=== PATIENT | female | born 1945 | race Asian ===

== ENCOUNTER 2020-10-09 10:33 | Outpatient (REF) | payer OTHER, MEDICAID, SELFPAY ==
[2020-10-09 14:47] LABS: Hematocrit 43.2 % (37-47); Hemoglobin 14.1 g/dl (12.0-16.0); Mean Corpuscular HGB Conc 32.6 g/dl (31.0-35.0); Mean Corpuscular Hemoglobin 28.5 pg (27.0-33.0); Mean Corpuscular Volume 87.4 fL (80-98); Mean Platelet Volume 11.8 fL (9.4-12.3); Platelet Count 279 X10*3/uL (160-400); Red Blood Count 4.94 X10*6/uL (4.20-5.50); Red Cell Distribution Width 14.2 % (11.0-16.0); White Blood Count 9.2 X10*3/uL (4.8-10.8)
[2020-10-09 15:05] LABS: Alanine Aminotransferase 66 U/L (0-31); Albumin Level 4.5 g/dL (3.5-5.0); Alkaline Phosphatase 91 U/L (39-117); Anion Gap 14 (12-20); Aspartate Amino Transferase 52 U/L (5-31); Bilirubin Direct 0.2 mg/dL (0.0-0.5); Bilirubin Total 0.4 mg/dL (0.0-1.0); Blood Urea Nitrogen 22 mg/dL (9-16); Carbon Dioxide 27 mmol/L (22-29); Chloride 103 mmol/L (96-108); Cholesterol 291 mg/dL; Estimated Glomerular Filt Rate 50; Glucose Random 115 mg/dL (60-115); HDL Cholesterol 47 mg/dL; LDL Cholesterol Calculated 206 mg/dl; Potassium 5.3 mmol/L (3.3-5.1); Sodium 139 mmol/L (135-145); Triglycerides 191 mg/dL
[2020-10-09 15:29] LABS: Thyroid Stimulating Hormone 2.13 uIU/mL (0.32-4.0)
[2020-10-12 04:39] LABS: Folate > 20.0 ng/mL (> or = 4.0); Vitamin B12 1653 pg/mL (200-900)
[2020-10-13 11:46] LABS: Vitamin D 25-OH, D2 <4 ng/mL; Vitamin D 25-OH, D3 46 ng/mL; Vitamin D 25-OH, Total 46 ng/mL (30-100)
== END 2020-10-09 10:34 | disposition home or self-care (01) ==
LOC: HO.10HDL 10:33
PROVIDERS: Visit Provider Internal Medicine
DX: I10 Essential (primary) hypertension (principal)
CPT/HCPCS: 36415; 80048; 80061; 80076; 82306; 82607; 82746; 84443; 85027

== ENCOUNTER 2020-11-26 15:40 | Outpatient (REF) | payer OTHER, MEDICAID, SELFPAY | END 2020-11-26 15:41 | disposition home or self-care (01) | LOC: HO.LAB 15:40 | PROVIDERS: Visit Provider Nurse Practitioner Family | DX: R30.0 Dysuria (principal) | CPT/HCPCS: 87086 ==

== ENCOUNTER → 2020-12-27 10:41 | Outpatient (BNVA) | payer OTHER, MEDICAID, SELFPAY | PROVIDERS: PCP Internal Medicine; Visit Provider Urology | DX: R39.12 Poor urinary stream (principal); R33.9 Retention of urine, unspecified | CPT/HCPCS: 51798; 81002; 99202 ==

== ENCOUNTER → 2021-07-05 10:50 | Outpatient (BNVA) | payer OTHER, MEDICAID, SELFPAY | PROVIDERS: PCP Internal Medicine; Visit Provider Urology | DX: R39.12 Poor urinary stream (principal); R33.9 Retention of urine, unspecified | CPT/HCPCS: 51798 ==

== ENCOUNTER 2021-08-09 11:20 | Inpatient (IN) | payer OTHER, MEDICAID, SELFPAY ==
[2021-08-09] VITALS (13 sets, daily range): BP systolic 135–234; BP diastolic 64–109; PULSE 66–98; RESP 18–29; TEMP 36.8–37.6; O2SAT 92–96; BMI 21.2
--- NOTE | ~2021-08-09 | XR_ITS ---
EXAMINATION: XR CHEST CLINICAL INFORMATION: Hypoxia. Covid positive. COMPARISON: Chest x-rays of 02/04/2013. TECHNIQUE: Frontal view of the chest was obtained. FINDINGS: Multiple cardiac leads and wires overlie the chest. The cardiomediastinal silhouette is likely within normal limits for technique. No abnormal tracheal deviation. The lungs are mildly hypoexpanded. There are faint hazy opacities in the mid and lower lung zone. No dense consolidation. No significant pleural effusions. No evidence of pneumothorax or overt pulmonary edema. Mild degenerative changes in the spine. Visualized upper abdomen is unremarkable. XR/XR chest 1V IMPRESSION: Faint hazy opacities in the bilateral mid and lower lung zones, concerning for infectious infiltrates in this patient with history of positive Covid test.
--- NOTE | 2021-08-09 11:24 | ED.URI ---
HPI - URI/Sore Throat General Chief Complaint: General Medical Stated Complaint: covid + Time Seen by Provider: 08/09/21 11:24 Source: family (daughter) and EMS Mode of arrival: EMS Limitations: language barrier History of Present Illness HPI Narrative: 75-year-old non Slovak-speaking female (speaks Laotian) presents via EMS from urgent care for dehydration and hypoxia. Patient tested positive for COVID at home 2 days ago and has had diarrhea and poor oral intake. Patient arrives satting 92% on 2 L of oxygen, temperature 99.3?, BP 148/68 She has a past medical history of hypertension, GERD, depression. I called home and reached her son-in-law who lives with her. Son-in-law is COVID positive and has been quarantine at home. He says that for the past few days patient has been coughing with poor p.o. intake, she has had diarrhea for which he gave Imodium. States she has had fevers, body aches, and has been very tired. States that she has had 2 vaccinations but she is not boosted yet During my interview with her with japanese interpreter, patient states that she has had symptoms for 10 days, she feels very tired, she is so tired she can hardly talk. She has been coughing, with fevers and body aches. She endorses two COVID vaccinations but no booster yet. She feels short of breath. She is nauseous. No chest pain. Related Data Home Medications Medication Instructions Recorded Confirmed losartan 50 mg tablet 50 mg PO DAILY 10/08/20 01/26/21 Previous Rx's Medication Instructions Recorded pantoprazole 40 mg tablet,delayed 40 mg PO DAILY #90 tab 12/14/20 release furosemide 20 mg tablet 20 mg PO DAILY #90 tab 03/28/21 metoprolol succinate 50 mg 50 mg PO DAILY #90 tab 03/29/21 tablet,extended release 24 hr fluoxetine 10 mg capsule 10 mg PO DAILY #90 cap 04/01/21 atorvastatin 40 mg tablet 40 mg PO DAILY #90 tab 04/09/21 gabapentin 300 mg capsule 300 mg PO TID #270 cap 04/09/21 terazosin 1 mg capsule 1 mg PO BEDTIME 30 Days #30 cap 08/01/21 Allergies Allergy/AdvReac Type Severity Reaction Status Date / Time aspirin Allergy Intermediate Nausea and Verified 07/29/21 14:39 Vomiting Review of Systems Constitutional: Constitutional: Reports body ache(s), Reports chills, Reports fatigue, Reports fever(s), Reports headache(s), Reports increased appetite, Reports lethargy and Reports malaise Eyes: Eyes: Denies blurry vision ENT: Denies otalgia, Reports headache(s), Denies nasal discharge, Denies neck pain, Denies post nasal drip and Denies sore throat Cardiovascular: Cardiovascular: Denies chest pain, Denies chest pain at rest, Denies palpitations, Reports dyspnea and Reports dyspnea on exertion Respiratory: Respiratory: Reports cough, Reports dyspnea, Reports dyspnea on exertion, Denies stridor and Denies wheezing Gastrointestinal: Gastrointestinal: Denies abdominal pain, Denies hematochezia, Denies coffee ground emesis, Reports diarrhea, Reports nausea, Denies vomiting and Denies hematemesis Genitourinary: Genitourinary: Reports no additional female genitourinary complaints Musculoskeletal: Musculoskeletal: Reports myalgias, Denies neck pain, Denies numbness and Denies tingling Integumentary/Breasts: Skin/Breast: Denies erythema and Denies rash Neurologic: Reports headache(s), Denies numbness and Denies tingling Endocrine: Endocrine: Reports fatigue and Denies palpitations Allergic/Immunologic: Allergic/Immunologic: Denies wheezing PMFSH Past Medical History Medical History Essential (primary) hypertension Generalized anxiety disorder GERD (gastroesophageal reflux disease) Surgical History History of appendectomy History of cataract surgery Family History Family History Mother No problems noted. Father No problems noted. Social History Social History Alcohol intake: never Patient Tobacco Use Status: Never used Tobacco Use of substances other than those prescribed or required for medical reasons: No Advance Directives: No Advance Directives Information Provided: No Physical Exam Vital Signs: Vital Signs: Last Vital Signs Temp 99.1 F 08/09/21 11:31 Pulse 82 08/09/21 17:20 Resp 22 H 08/09/21 17:20 BP 135/85 08/09/21 17:20 Pulse Ox 94 08/09/21 17:20 BMI result Body Mass Index 21.2 Const: General: cooperative, alert and awake Nutritional Appearance: average body habitus Orientation/consciousness: patient oriented x3 Limitations: language barrier HENMT: Head: Yes normal to inspection, Yes normocephalic and Yes atraumatic Ears: hearing grossly normal bilaterally and external ears normal General nose exam: Normal external nose present Face and sinus: Yes normal facial exam and Yes sinuses nontender Mouth: mucous membranes dry Teeth and gingiva: dentition normal Throat: Yes posterior oropharynx normal Eyes: Conjunctivae: conjunctivae normal Pupils: Equal, round and reactive pupils present EOM: EOMs intact bilaterally Neck: Neck: Yes full ROM, Yes no lymphadenopathy and Yes supple Resp: Effort & Inspection: able to speak in complete sentences, no pursed lip breathing, tachypneic, no tripod positioning and symmetric chest movement Auscultation: clear to auscultation bilaterally, no crackles, no rales, no rhonchi and no wheezes Cardio: Rate: regular rate Rhythm: regular rhythm Heart sounds: S1 normal heart sound present and S2 normal heart sound present GI: Inspection: Yes normal to inspection Palpation (GI): Soft to palpation, nontender, no guarding and not rigid Percussion: Yes normal to percussion Auscultation: normal bowel sounds Skin: Other: Patient has pallor, pale, and pale conjunctiva Neuro: General: patient oriented x3, tone normal and moves all extremities Cranial nerves: Yes Equal, round and reactive pupils present Extrem: General: Yes normal to inspection and Yes full ROM Psych: Appearance: grossly normal Affect: normal affect Attitude: cooperative Thought process: Normal thought process present Course Course Course Narrative: 75-year-old female with a past medical history of hypertension, GERD, and anxiety, presents from home for 10 days of COVID like symptoms and a positive COVID test 2 days ago. Her son-in-law whom she lives with is COVID positive at home. On exam, patient is satting 88 % to 89% on room air, she is hypertensive with a systolic in the 220s. Not tachycardic. She is tachypneic,, when we take her off oxygen her respiration rate goes up into the low 30s. Will get basic labs, chest x-ray, lactic, blood culture, EKG, troponin, and COVID labs such as LDH, ferritin, D-dimer. Giving dexamethasone, fluids, Zofran. Patient is maintaining oxygen saturation above 93% on 2 L of oxygen Systolic BP 220's, will re-check after tylenol and fluids. Reevaluation(s) Reevaluation #1: Patient signs and symptoms of sepsis is due to Covid; gave 1 liter fluids; did not want to fluid overload, d/t concern for ARDs. Discussed this with Dr Wilcox. Lactic 2.2, white blood cell count 15.7, VBG shows only mildly elevated bicarb of 29, pH 7.4. LDH is elevated at 287, Ferritin elevated at 2698, D-dimer normal 184. Troponin 73.9, EKG shows no acute ischemia. Initially patient's blood pressure was 234/109, now after 1 L fluids and Tylenol and Zofran blood pressure is 174/74 Will get 3 hour troponin Reevaluation #2: CXR shows: XR/XR chest 1V IMPRESSION: Faint hazy opacities in the bilateral mid and lower lung zones, concerning for infectious infiltrates in this patient with history of positive Covid test. Repeat lactic is now 1.6, down from 2.2. Troponin at the 3 hour adamaris is 98.9. This does not represent a greater than 50% delta change from 1st troponin which was 73.9. COntacted hospitalist for admission 16:50 MDM - URI/Sore Throat Lab Data Result diagrams: 08/09/21 12:10 08/09/21 12:10 Labs: Lab Results 08/09/21 08/09/21 08/09/21 Range/Units 12:09 12:10 12:10 WBC 15.7 H (4.8-10.8) X10*3/uL RBC 5.10 (4.20-5.50) X10*6/uL Hgb 14.5 (12.0-16.0) g/dl Hct 43.2 (37.0-47.0) % MCV 84.7 (80.0-98.0) fL MCH 28.4 (27.0-33.0) pg MCHC 33.6 (31.0-35.0) g/dl RDW 13.6 (11.0-16.0) % Plt Count 170 (160-400) X10*3/uL MPV 11.4 (9.4-12.3) fL Immature Gran % (Auto) 0.6 H (0.0-0.4) % Neut % (Auto) 80.7 H (45-73) % Lymph % (Auto) 12.9 L (20-40) % [place] % (Auto) 5.7 (2-11) % Eos % (Auto) 0.0 (0-4) % Baso % (Auto) 0.1 (0-2) % Lymph # (Auto) 2.0 (1.2-4.9) X10*3/uL [place] # (Auto) 0.9 (0.1-1.2) X10*3/uL Eos # (Auto) 0.0 (0.0-0.4) X10*3/uL Baso # (Auto) 0.0 (0.0-0.2) X10*3/uL Abs Immat Gran (auto) 0.09 H (0.00-0.03) X10*3/uL Absolute Neuts (auto) 12.7 H (2.0-8.3) x10*3/uL Absolute Nucleated RBC 0.000 (0.0-0.012) X10*3/uL Nucleated RBC % (auto) 0.0 (0.0-0.2) /100WBC D-Dimer High Sensitivty NG/ML VBG pH (7.32-7.43) VBG pCO2 mmHg VBG pO2 mmHg VBG HCO3 (22-26) mmol/L VBG O2 Saturation % VBG Base Excess mmol/L Sodium (135-145) mmol/L Potassium (3.3-5.1) mmol/L Chloride (96-108) mmol/L Carbon Dioxide (22-29) mmol/L Anion Gap (12-20) BUN (9-16) mg/dL Creatinine (0.5-1.4) mg/dL Estim Creat Clear Calc Estimated GFR Random Glucose (60-115) mg/dL Lactic Acid 2.2 H* (0.5-2.0) mmol/L Lactic Acid F/U @ 2Hr (0.5-2.0) mmol/L Calcium (8.4-10.2) mg/dL Magnesium (1.6-2.6) mg/dL Ferritin (10-250) ng/mL Total Bilirubin (0.0-1.0) mg/dL AST (5-31) U/L ALT (0-31) U/L Alkaline Phosphatase (39-117) U/L Lactate Dehydrogenase (122-220) U/L Troponin I High Sens 73.9 H* (<3.5-17.0) ng/L Total Protein (6.5-8.0) g/dL Albumin (3.5-5.0) g/dL Influenza Type A (PCR) (Negative) Influenza Type B (PCR) (Negative) RSV RNA Qual (PCR) (Negative) SARS-CoV-2 RNA (RT-PCR) (Negative) 08/09/21 08/09/21 08/09/21 Range/Units 12:10 12:15 12:41 WBC (4.8-10.8) X10*3/uL RBC (4.20-5.50) X10*6/uL Hgb (12.0-16.0) g/dl Hct (37.0-47.0) % MCV (80.0-98.0) fL MCH (27.0-33.0) pg MCHC (31.0-35.0) g/dl RDW (11.0-16.0) % Plt Count (160-400) X10*3/uL MPV (9.4-12.3) fL Immature Gran % (Auto) (0.0-0.4) % Neut % (Auto) (45-73) % Lymph % (Auto) (20-40) % [place] % (Auto) (2-11) % Eos % (Auto) (0-4) % Baso % (Auto) (0-2) % Lymph # (Auto) (1.2-4.9) X10*3/uL [place] # (Auto) (0.1-1.2) X10*3/uL Eos # (Auto) (0.0-0.4) X10*3/uL Baso # (Auto) (0.0-0.2) X10*3/uL Abs Immat Gran (auto) (0.00-0.03) X10*3/uL Absolute Neuts (auto) (2.0-8.3) x10*3/uL Absolute Nucleated RBC (0.0-0.012) X10*3/uL Nucleated RBC % (auto) (0.0-0.2) /100WBC D-Dimer High Sensitivty NG/ML VBG pH 7.40 (7.32-7.43) VBG pCO2 47 mmHg VBG pO2 31 mmHg VBG HCO3 29 H (22-26) mmol/L VBG O2 Saturation 44.0 % VBG Base Excess 3.7 mmol/L Sodium 137 (135-145) mmol/L Potassium 4.0 D (3.3-5.1) mmol/L Chloride 101 (96-108) mmol/L Carbon Dioxide 26 (22-29) mmol/L Anion Gap 14 (12-20) BUN 6 L (9-16) mg/dL Creatinine 0.82 (0.5-1.4) mg/dL Estim Creat Clear Calc 47.5 Estimated GFR > 60 Random Glucose 162 H (60-115) mg/dL Lactic Acid (0.5-2.0) mmol/L Lactic Acid F/U @ 2Hr (0.5-2.0) mmol/L Calcium 8.9 D (8.4-10.2) mg/dL Magnesium 1.9 (1.6-2.6) mg/dL Ferritin 2698 H (10-250) ng/mL Total Bilirubin 1.0 (0.0-1.0) mg/dL AST 31 D (5-31) U/L ALT 34 H (0-31) U/L Alkaline Phosphatase 92 (39-117) U/L Lactate Dehydrogenase 287 H (122-220) U/L Troponin I High Sens (<3.5-17.0) ng/L Total Protein 7.6 (6.5-8.0) g/dL Albumin 4.0 (3.5-5.0) g/dL Influenza Type A (PCR) NEGATIVE (Negative) Influenza Type B (PCR) NEGATIVE (Negative) RSV RNA Qual (PCR) NEGATIVE (Negative) SARS-CoV-2 RNA (RT-PCR) POSITIVE A (Negative) 12/24/21 12/24/21 12/24/21 Range/Units 12:41 15:45 15:45 WBC (4.8-10.8) X10*3/uL RBC (4.20-5.50) X10*6/uL Hgb (12.0-16.0) g/dl Hct (37.0-47.0) % MCV (80.0-98.0) fL MCH (27.0-33.0) pg MCHC (31.0-35.0) g/dl RDW (11.0-16.0) % Plt Count (160-400) X10*3/uL MPV (9.4-12.3) fL Immature Gran % (Auto) (0.0-0.4) % Neut % (Auto) (45-73) % Lymph % (Auto) (20-40) % [place] % (Auto) (2-11) % Eos % (Auto) (0-4) % Baso % (Auto) (0-2) % Lymph # (Auto) (1.2-4.9) X10*3/uL [place] # (Auto) (0.1-1.2) X10*3/uL Eos # (Auto) (0.0-0.4) X10*3/uL Baso # (Auto) (0.0-0.2) X10*3/uL Abs Immat Gran (auto) (0.00-0.03) X10*3/uL Absolute Neuts (auto) (2.0-8.3) x10*3/uL Absolute Nucleated RBC (0.0-0.012) X10*3/uL Nucleated RBC % (auto) (0.0-0.2) /100WBC D-Dimer High Sensitivty 184 NG/ML VBG pH (7.32-7.43) VBG pCO2 mmHg VBG pO2 mmHg VBG HCO3 (22-26) mmol/L VBG O2 Saturation % VBG Base Excess mmol/L Sodium (135-145) mmol/L Potassium (3.3-5.1) mmol/L Chloride (96-108) mmol/L Carbon Dioxide (22-29) mmol/L Anion Gap (12-20) BUN (9-16) mg/dL Creatinine (0.5-1.4) mg/dL Estim Creat Clear Calc Estimated GFR Random Glucose (60-115) mg/dL Lactic Acid (0.5-2.0) mmol/L Lactic Acid F/U @ 2Hr 1.6 (0.5-2.0) mmol/L Calcium (8.4-10.2) mg/dL Magnesium (1.6-2.6) mg/dL Ferritin (10-250) ng/mL Total Bilirubin (0.0-1.0) mg/dL AST (5-31) U/L ALT (0-31) U/L Alkaline Phosphatase (39-117) U/L Lactate Dehydrogenase (122-220) U/L Troponin I High Sens 98.9 H* (<3.5-17.0) ng/L Total Protein (6.5-8.0) g/dL Albumin (3.5-5.0) g/dL Influenza Type A (PCR) (Negative) Influenza Type B (PCR) (Negative) RSV RNA Qual (PCR) (Negative) SARS-CoV-2 RNA (RT-PCR) (Negative) ECG Data Interpretation: Sinus at a rate of 82, CT 158, QRS 68, QTC 495, left-sided stent C mildly, no ST elevations or and T-wave abnormalities Discharge Plan Discharge Clinical Impression: COVID-19, Hypoxia Patient Disposition: Admitted As Inpatient
--- NOTE | 2021-08-09 11:42 | ECG_ITS ---
Test Reason : SOB Blood Pressure : / mmHG Vent. Rate : 082 BPM Atrial Rate : 082 BPM P-R Int : 158 ms QRS Dur : 068 ms QT Int : 424 ms P-R-T Axes : 042 -51 066 degrees QTc Int : 495 ms Normal sinus rhythm Possible Left atrial enlargement Left ventricular hypertrophy with repolarization abnormality ( R in aVL , [place] product ) Prolonged QT Abnormal ECG No previous ECGs available Referred By: Janna Guerrero Electronically Signed By:DERECK LAGUNAS
[2021-08-09] MEDS: Acetaminophen 325 MG TABLET 975 MG PO (11:53)
[2021-08-09] MEDS: 0.9 % Sodium Chloride 1,000 ML 999 ML IV (11:53)
[2021-08-09] MEDS: dexAMETHasone 6 MG TABLET PO (12:18)
[2021-08-09] MEDS: ondansetron HCL 4 MG/2 ML VIAL IVPUSH (12:18)
[2021-08-09 12:19] LABS: MANUAL DIFF FLAG NO
[2021-08-09 12:21] LABS: Basophils Percent Auto 0.1 % (0-2); Hematocrit 43.2 % (37.0-47.0); Hemoglobin 14.5 g/dl (12.0-16.0); Imm Gran Abs Auto 0.09 X10*3/uL (0.00-0.03); Imm Gran Pct Auto 0.6 % (0.0-0.4); Lymphocytes Percent Auto 12.9 % (20-40); Mean Corpuscular HGB Conc 33.6 g/dl (31.0-35.0); Mean Corpuscular Hemoglobin 28.4 pg (27.0-33.0); Mean Corpuscular Volume 84.7 fL (80.0-98.0); Mean Platelet Volume 11.4 fL (9.4-12.3); Monocytes Absolute Auto 0.9 X10*3/uL (0.1-1.2); Monocytes Percent Auto 5.7 % (2-11); Neutrophils Absolute Auto 12.7 x10*3/uL (2.0-8.3); Neutrophils Percent Auto 80.7 % (45-73); Platelet Count 170 X10*3/uL (160-400); Red Cell Distribution Width 13.6 % (11.0-16.0); White Blood Count 15.7 X10*3/uL (4.8-10.8)
[2021-08-09 12:22] LABS: Venous Blood Gas Refer to POC result
[2021-08-09 12:22] LABS: VBG Base Excess 3.7 mmol/L; VBG HCO3 29 mmol/L (22-26); VBG pCO2 47 mmHg; VBG pO2 31 mmHg
[2021-08-09 12:44] LABS: Lactic Acid 2.2 mmol/L (0.5-2.0)
[2021-08-09 12:46] LABS: Alanine Aminotransferase 34 U/L (0-31); Alkaline Phosphatase 92 U/L (39-117); Anion Gap 14 (12-20); Aspartate Amino Transferase 31 U/L (5-31); Blood Urea Nitrogen 6 mg/dL (9-16); Calcium 8.9 mg/dL (8.4-10.2); Carbon Dioxide 26 mmol/L (22-29); Chloride 101 mmol/L (96-108); Creatinine Clr Calc Pharmacy 47.5; Estimated Glomerular Filt Rate > 60; Glucose Random 162 mg/dL (60-115); Magnesium 1.9 mg/dL (1.6-2.6); Sodium 137 mmol/L (135-145); Total Protein 7.6 g/dL (6.5-8.0)
[2021-08-09 12:52] LABS: Lactate Dehydrogenase 287 U/L (122-220)
[2021-08-09 12:54] LABS: Troponin-I High Sensitivity 73.9 ng/L (<3.5-17.0)
[2021-08-09 12:56] LABS: D Dimer High Sensitivity 184 NG/ML
[2021-08-09 13:24] LABS: Influenza A PCR NEGATIVE (Negative); Influenza B PCR NEGATIVE (Negative); Resp Syncy Virus RNA Qual PCR NEGATIVE (Negative); SARS COV2 PCR INHOUSE POSITIVE (Negative)
[2021-08-09 13:50] LABS: Ferritin 2698 ng/mL (10-250)
[2021-08-09 14:18] LABS: Reflex Lactate? Lactic Acid Added
--- NOTE | 2021-08-09 15:28 | PC.NURSE ---
pt is a vegetarian
[2021-08-09 16:07] LABS: ~Lactic Acid-LAB USE ONLY 1.6 mmol/L (0.5-2.0)
[2021-08-09 16:22] LABS: Troponin-I High Sensitivity 98.9 ng/L (<3.5-17.0)
--- NOTE | 2021-08-09 17:27 | P.HPHOSP_ITS ---
History of Present Illness Date of Service: 08/09/21 Chief Complaint: shortness of breath, decreased oral intake a 75 years old lady with PMH of HTN, HLD, GERD among others who (speaks Laotian) presented to the hospital for evaluation of generalized weakness and shortness of breath. The history was taken from the patient, family, ED provider. The patient has been complaining of symptoms for almost 10 days need he started as a common cold with body aches and fevers but she became very tired and was unable to eat much with decreased appetite and feeling of nausea. Yesterday she developed diarrhea and has been taking Imodium for it. Overall she feels she is very weak. admitted for further evaluation treatment. Review of Systems Review of Systems: No fever, chills but has generalized weakness No chest pain, palpitation increaseshortness of breath and reportingcoughing No abdominal pain, nausea or vomiting but has diarrhea No urinary symptoms No any rash or wounds PMFSH Medical History Essential (primary) hypertension Generalized anxiety disorder GERD (gastroesophageal reflux disease) Family History Mother No problems noted. Father No problems noted. Surgical History History of appendectomy History of cataract surgery Social History Alcohol intake: never Patient Tobacco Use Status: Never used Tobacco Use of substances other than those prescribed or required for medical reasons: No Advance Directives: No Advance Directives Information Provided: No Meds Allergies Allergy/AdvReac Type Severity Reaction Status Date / Time aspirin Allergy Intermediate Nausea and Verified 07/29/21 14:39 Vomiting Active Medications: Current Medications Acetaminophen (Acetaminophen 325 Mg Tablet) 650 mg PO Q6H PRN PRN Reason: Pain, Mild (Pain Scale 1-3) Enoxaparin Sodium (Enoxaparin Sodium 40 Mg/0.4 Ml Syringe) 40 mg SUBCUT Q24H ANTONY Ondansetron HCl (Ondansetron Hcl 4 Mg/2 Ml Vial) 4 mg IVPUSH Q8H PRN PRN Reason: Nausea and Vomiting Pharmacy Consult (Consult Rx Perform Med Rec) 1 each MISCELLANE ONCE PRN PRN Reason: Consult order Sodium Chloride (0.9 % Sodium Chloride Flush 3 Ml Syringe) 3 ml IVFLUSH QSHIFT [facility] Home Medications Medication Instructions Recorded Confirmed Last Taken Type losartan 50 mg tablet 50 mg PO DAILY 10/08/20 01/26/21 Unknown History Physical Exam Vital Signs and Narrative: Vital Signs: Last Vital Signs Temp 99.1 F 08/09/21 11:31 Pulse 82 08/09/21 17:20 Resp 22 H 08/09/21 17:20 BP 135/85 08/09/21 17:20 Pulse Ox 94 08/09/21 17:20 BMI result Body Mass Index 21.2 Const: Other: Constitutional : Alert, oriented, in mild respiratory distress Neck : Normal inspection, Supple Cardiovascular : RRR, S1 S2, no lower extremity edema Respiratory : chest wall moving bilaterally, mildly tachypneic, on oxygen supplement Gastrointestinal: soft, lax, Normal bowel sounds, Non tender Skin : Warm, Dry Neurological : Alert & oriented x3, No focal deficit Results Labs CBC and Chem 7: 08/09/21 12:10 08/09/21 12:10 Labs: Laboratory Results - last 24 hr 08/09/21 08/09/21 08/09/21 12:09 12:10 12:10 MCV 84.7 MCH 28.4 MCHC 33.6 RDW 13.6 Plt Count 170 MPV 11.4 Immature Gran % (Auto) 0.6 H Neut % (Auto) 80.7 H Lymph % (Auto) 12.9 L [place] % (Auto) 5.7 Eos % (Auto) 0.0 Baso % (Auto) 0.1 Lymph # (Auto) 2.0 [place] # (Auto) 0.9 Eos # (Auto) 0.0 Baso # (Auto) 0.0 Abs Immat Gran (auto) 0.09 H Absolute Neuts (auto) 12.7 H Absolute Nucleated RBC 0.000 Nucleated RBC % (auto) 0.0 D-Dimer High Sensitivty VBG pH VBG pCO2 VBG pO2 VBG HCO3 VBG O2 Saturation VBG Base Excess Anion Gap Estim Creat Clear Calc Estimated GFR Random Glucose Lactic Acid 2.2 H* Lactic Acid F/U @ 2Hr Calcium Magnesium Ferritin Total Bilirubin AST ALT Alkaline Phosphatase Lactate Dehydrogenase Troponin I High Sens 73.9 H* Total Protein Albumin Influenza Type A (PCR) Influenza Type B (PCR) RSV RNA Qual (PCR) SARS-CoV-2 RNA (RT-PCR) 08/09/21 08/09/21 08/09/21 12:10 12:15 12:41 MCV MCH MCHC RDW Plt Count MPV Immature Gran % (Auto) Neut % (Auto) Lymph % (Auto) [place] % (Auto) Eos % (Auto) Baso % (Auto) Lymph # (Auto) [place] # (Auto) Eos # (Auto) Baso # (Auto) Abs Immat Gran (auto) Absolute Neuts (auto) Absolute Nucleated RBC Nucleated RBC % (auto) D-Dimer High Sensitivty VBG pH 7.40 VBG pCO2 47 VBG pO2 31 VBG HCO3 29 H VBG O2 Saturation 44.0 VBG Base Excess 3.7 Anion Gap 14 Estim Creat Clear Calc 47.5 Estimated GFR > 60 Random Glucose 162 H Lactic Acid Lactic Acid F/U @ 2Hr Calcium 8.9 D Magnesium 1.9 Ferritin 2698 H Total Bilirubin 1.0 AST 31 D ALT 34 H Alkaline Phosphatase 92 Lactate Dehydrogenase 287 H Troponin I High Sens Total Protein 7.6 Albumin 4.0 Influenza Type A (PCR) NEGATIVE Influenza Type B (PCR) NEGATIVE RSV RNA Qual (PCR) NEGATIVE SARS-CoV-2 RNA (RT-PCR) POSITIVE A 08/09/21 08/09/21 08/09/21 12:41 15:45 15:45 MCV MCH MCHC RDW Plt Count MPV Immature Gran % (Auto) Neut % (Auto) Lymph % (Auto) [place] % (Auto) Eos % (Auto) Baso % (Auto) Lymph # (Auto) [place] # (Auto) Eos # (Auto) Baso # (Auto) Abs Immat Gran (auto) Absolute Neuts (auto) Absolute Nucleated RBC Nucleated RBC % (auto) D-Dimer High Sensitivty 184 VBG pH VBG pCO2 VBG pO2 VBG HCO3 VBG O2 Saturation VBG Base Excess Anion Gap Estim Creat Clear Calc Estimated GFR Random Glucose Lactic Acid Lactic Acid F/U @ 2Hr 1.6 Calcium Magnesium Ferritin Total Bilirubin AST ALT Alkaline Phosphatase Lactate Dehydrogenase Troponin I High Sens 98.9 H* Total Protein Albumin Influenza Type A (PCR) Influenza Type B (PCR) RSV RNA Qual (PCR) SARS-CoV-2 RNA (RT-PCR) Imaging Radiologist's Impressions: Impressions Chest X-Ray 08/09/21 12:53 IMPRESSION: Faint hazy opacities in the bilateral mid and lower lung zones, concerning for infectious infiltrates in this patient with history of positive Covid test. Assessment and Plan (1) COVID-19: Status: Acute (2) Dehydration: Status: Acute (3) Physical deconditioning: Status: Acute a 75 years old lady with PMH of HTN, HLD, GERD among others who (speaks Laotian) presented to the hospital for evaluation of generalized weakness and shortness of breath. COVID-19 infection Symptoms for almost 10 days Start dexamethasone daily Oxygen supplement as required Wean down O2 as tolerated Dehydration, decreased p.o. intake To give gentle hydration overnight Encourage p.o. intake and add Ensure Physical deconditioning To do physical therapy and encourage movement Diarrhea Stool testing Imodium Continue rest of her home DVT PPx Lovenox Quality Stroke Does the patient have a stroke diagnosis?: No VTE Prior VTE?: No VTE Risk Level:: Medical - moderate - high VTE Device Contraindication: Treatment Not Indicated VTE Drug Contraindication: N/A - Med Ordered
[2021-08-09] MEDS: Enoxaparin Sodium 40 MG/0.4 ML SYRINGE SUBCUT (21:10)
--- NOTE | 2021-08-09 21:16 | PC.NURSE ---
This RN at bedside with movers via [employer]. Pt alert, oriented, denies pain/discomfort. Pt assisted to bedside commode, urinated, sample to be sent for processing. Pt BP 219/106, TT anna marie who ordered PRN hydralazine. This rn notified MD of repeat trop increase from initial, no additional orders at this time. Per MD, hold IV fluids.
[2021-08-09 21:40] LABS: Appearance Urine CLEAR; Color Urine YELLOW; Glucose Urine UA NEG (NEG); Leukocyte Esterase Urine NEG (NEG); Nitrite Urine NEG (NEG); Urine Blood NEG (NEG); Urine Ketones NEG (NEG); Urine Protein TRACE MG/DL (NEG-TRACE)
[2021-08-09] MEDS: hydrALAZINE HCl 20 MG/ML VIAL 5 MG IVPUSH (21:47)
[2021-08-09 22:10] LABS: Bacteria Urine 1+ /LPF; Squamous Epithelial Cell Urine 1+ /LPF
--- NOTE | 2021-08-09 22:15 | PC.NURSE ---
anna marie aware of repeat bp 217/105 30 min after hydralazine. awaiting additional orders
[2021-08-09] MEDS: amLODIPine Besylate 5 MG TABLET PO (22:37)
--- NOTE | 2021-08-09 22:57 | PC.NURSE ---
Med rec completed with family's help over phone. aware of its completion Daughter Josh [phone]
[2021-08-10] VITALS (8 sets, daily range): BP systolic 113–189; BP diastolic 48–86; PULSE 79–105; RESP 16–28; TEMP 36.7–37.2; O2SAT 94–98
--- NOTE | 2021-08-10 02:10 | PC.NURSE ---
Pt asleep on stretcher in NAD, breathing with ease on supplemental O2 NC. Pt does not appear in any distress/pain/discomfort. Stretcher in lowest locked position, rails raised, call maldonado within reach.
--- NOTE | 2021-08-10 06:20 | PC.NURSE ---
Pt asleep on stretcher in NAD, breathing with ease on supplemental O2 NC. Pt without nonverbal indicators of pain/discomfort. Pt stretcher in lowest locked position, rails raised, call maldonado within reach.
[2021-08-10] MEDS: dexAMETHasone sod phosphate 4 MG/ML VIAL 6 MG IVPUSH (08:57)
[2021-08-10] MEDS: FLUoxetine HCl 10 MG CAPSULE PO (08:58)
[2021-08-10] MEDS: lisinopriL 10 MG TABLET PO (08:58)
[2021-08-10] MEDS: Omeprazole 40 MG CAPSULE.DR PO (08:58)
[2021-08-10] MEDS: Metoprolol Succinate ER 50 MG TAB.ER.24H PO (08:58)
[2021-08-10] MEDS: Furosemide 20 MG TABLET PO (08:59)
[2021-08-10] MEDS: 0.9 % Sodium Chloride Flush 3 ML SYRINGE IVFLUSH ×2 (08:59→15:28)
--- NOTE | 2021-08-10 09:02 | PC.NURSE ---
patient a&o, personnel monitor nsr 80s-90s, vss, pt took meds whole with water, vss, no c/o pain or discomfort, will continue to monitor.
[2021-08-10 09:04] LABS: Hematocrit 40.6 % (37.0-47.0); Hemoglobin 13.4 g/dl (12.0-16.0); Mean Corpuscular Hemoglobin 27.9 pg (27.0-33.0); Mean Corpuscular Volume 84.4 fL (80.0-98.0); Mean Platelet Volume 11.7 fL (9.4-12.3); Platelet Count 202 X10*3/uL (160-400); Red Blood Count 4.81 X10*6/uL (4.20-5.50); Red Cell Distribution Width 13.8 % (11.0-16.0); White Blood Count 9.1 X10*3/uL (4.8-10.8)
[2021-08-10] MEDS: Gabapentin 300 MG CAPSULE PO ×3 (09:09→21:38)
[2021-08-10 09:21] LABS: Anion Gap 12 (12-20); Blood Urea Nitrogen 9 mg/dL (9-16); Calcium 8.4 mg/dL (8.4-10.2); Carbon Dioxide 23 mmol/L (22-29); Chloride 106 mmol/L (96-108); Creatinine Clr Calc Pharmacy 48.7; Estimated Glomerular Filt Rate > 60; Glucose Random 136 mg/dL (60-115); Potassium 3.3 mmol/L (3.3-5.1); Sodium 138 mmol/L (135-145)
--- NOTE | 2021-08-10 11:31 | HO.PM.IMPN ---
Subjective Subjective Date of Service: 08/10/21 Interval History: the patient was seen and evaluated this morning Laying in bed, feels little bit better today Still requiring oxygen supplement No reported other overnight events. Review of Systems No fever, chills but has generalized weakness No chest pain, palpitation increase shortness of breath and coughing No abdominal pain, nausea or vomiting but has diarrhea No urinary symptoms No any rash or wounds Physical Exam Vital Signs: Vital Signs: Last Vital Signs Temp 98.9 F 08/10/21 08:09 Pulse 89 08/10/21 08:58 Resp 25 H 08/10/21 08:09 BP 153/64 H 08/10/21 08:58 Pulse Ox 94 08/10/21 08:09 BMI result Body Mass Index 21.2 Const: Other: Constitutional : Alert, oriented, in mild respiratory distress Neck : Normal inspection, Supple Cardiovascular : RRR, S1 S2, no lower extremity edema Respiratory : chest wall moving bilaterally, mildly tachypneic, on oxygen supplement Gastrointestinal: soft, lax, Normal bowel sounds, Non tender Skin : Warm, Dry Neurological : Alert & oriented x3, No focal deficit Objective Data Active Medications Acetaminophen (Acetaminophen 325 Mg Tablet) 650 mg PO Q6H PRN PRN Reason: Pain, Mild (Pain Scale 1-3) Atorvastatin Calcium (Atorvastatin Calcium 40 Mg Tablet) 40 mg PO BEDTIME [facility] Dexamethasone Sodium Phosphate (Dexamethasone Sod Phosphate 4 Mg/Ml Vial) 6 mg IVPUSH DAILY [facility] Last Admin: 08/10/21 08:57 Dose: 6 mg Documented by: MAREK Enoxaparin Sodium (Enoxaparin Sodium 40 Mg/0.4 Ml Syringe) 40 mg SUBCUT Q24H [facility] Last Admin: 08/09/21 21:10 Dose: 40 mg Documented by: SAHRA Fluoxetine HCl (Fluoxetine Hcl 10 Mg Capsule) 10 mg PO DAILY [facility] Last Admin: 08/10/21 08:58 Dose: 10 mg Documented by: MAREK Furosemide (Furosemide 20 Mg Tablet) 20 mg PO DAILY [facility]; Protocol Last Admin: 08/10/21 08:59 Dose: 20 mg Documented by: MAREK Gabapentin (Gabapentin 300 Mg Capsule) 300 mg PO TID [facility] Last Admin: 08/10/21 09:09 Dose: 300 mg Documented by: MAREK Hydralazine HCl (Hydralazine Hcl 20 Mg/Ml Vial) 5 mg IVPUSH Q4H PRN; Protocol PRN Reason: BP>180/90 Last Admin: 08/09/21 21:47 Dose: 5 mg Documented by: SAHRA Lisinopril (Lisinopril 10 Mg Tablet) 10 mg PO DAILY [facility]; Protocol Last Admin: 08/10/21 08:58 Dose: 10 mg Documented by: MAREK Loperamide HCl (Loperamide Hcl 2 Mg Capsule) 2 mg PO Q4H PRN PRN Reason: Diarrhea Metoprolol Succinate (Metoprolol Succinate Er 50 Mg Tab.Er.24h) 50 mg PO DAILY [facility]; Protocol Last Admin: 08/10/21 08:58 Dose: 50 mg Documented by: MAREK Omeprazole (Omeprazole 40 Mg Capsule.Dr) 40 mg PO DAILY@0630 [facility] Last Admin: 08/10/21 08:58 Dose: 40 mg Documented by: MAREK Ondansetron HCl (Ondansetron Hcl 4 Mg/2 Ml Vial) 4 mg IVPUSH Q8H PRN PRN Reason: Nausea and Vomiting Sodium Chloride (0.9 % Sodium Chloride Flush 3 Ml Syringe) 3 ml IVFLUSH QSHIFT [facility] Last Admin: 08/10/21 08:59 Dose: 3 ml Documented by: MAREK Labs CBC & Chem 7: 08/10/21 08:52 08/10/21 08:52 Labs: Laboratory Results - last 24 hr 08/09/21 08/09/21 08/09/21 12:09 12:10 12:10 MCV 84.7 MCH 28.4 MCHC 33.6 RDW 13.6 Plt Count 170 MPV 11.4 Immature Gran % (Auto) 0.6 H Neut % (Auto) 80.7 H Lymph % (Auto) 12.9 L Mayes % (Auto) 5.7 Eos % (Auto) 0.0 Baso % (Auto) 0.1 Lymph # (Auto) 2.0 Mayes # (Auto) 0.9 Eos # (Auto) 0.0 Baso # (Auto) 0.0 Abs Immat Gran (auto) 0.09 H Absolute Neuts (auto) 12.7 H Absolute Nucleated RBC 0.000 Nucleated RBC % (auto) 0.0 D-Dimer High Sensitivty VBG pH VBG pCO2 VBG pO2 VBG HCO3 VBG O2 Saturation VBG Base Excess Anion Gap Estim Creat Clear Calc Estimated GFR Random Glucose Lactic Acid 2.2 H* Lactic Acid F/U @ 2Hr Calcium Magnesium Ferritin Total Bilirubin AST ALT Alkaline Phosphatase Lactate Dehydrogenase Troponin I High Sens 73.9 H* Total Protein Albumin Urine Color Urine Appearance Urine pH Ur Specific [place] Urine Protein Urine Glucose (UA) Urine Ketones Urine Blood Urine Nitrite Ur Leukocyte Esterase Urine RBC Urine WBC Ur Squamous Epith Cells Urine Bacteria Influenza Type A (PCR) Influenza Type B (PCR) RSV RNA Qual (PCR) SARS-CoV-2 RNA (RT-PCR) 08/09/21 08/09/21 08/09/21 12:10 12:15 12:41 MCV MCH MCHC RDW Plt Count MPV Immature Gran % (Auto) Neut % (Auto) Lymph % (Auto) Mayes % (Auto) Eos % (Auto) Baso % (Auto) Lymph # (Auto) Mayes # (Auto) Eos # (Auto) Baso # (Auto) Abs Immat Gran (auto) Absolute Neuts (auto) Absolute Nucleated RBC Nucleated RBC % (auto) D-Dimer High Sensitivty VBG pH 7.40 VBG pCO2 47 VBG pO2 31 VBG HCO3 29 H VBG O2 Saturation 44.0 VBG Base Excess 3.7 Anion Gap 14 Estim Creat Clear Calc 47.5 Estimated GFR > 60 Random Glucose 162 H Lactic Acid Lactic Acid F/U @ 2Hr Calcium 8.9 D Magnesium 1.9 Ferritin 2698 H Total Bilirubin 1.0 AST 31 D ALT 34 H Alkaline Phosphatase 92 Lactate Dehydrogenase 287 H Troponin I High Sens Total Protein 7.6 Albumin 4.0 Urine Color Urine Appearance Urine pH Ur Specific [place] Urine Protein Urine Glucose (UA) Urine Ketones Urine Blood Urine Nitrite Ur Leukocyte Esterase Urine RBC Urine WBC Ur Squamous Epith Cells Urine Bacteria Influenza Type A (PCR) NEGATIVE Influenza Type B (PCR) NEGATIVE RSV RNA Qual (PCR) NEGATIVE SARS-CoV-2 RNA (RT-PCR) POSITIVE A 08/09/21 08/09/21 08/09/21 12:41 15:45 15:45 MCV MCH MCHC RDW Plt Count MPV Immature Gran % (Auto) Neut % (Auto) Lymph % (Auto) Mayes % (Auto) Eos % (Auto) Baso % (Auto) Lymph # (Auto) Mayes # (Auto) Eos # (Auto) Baso # (Auto) Abs Immat Gran (auto) Absolute Neuts (auto) Absolute Nucleated RBC Nucleated RBC % (auto) D-Dimer High Sensitivty 184 VBG pH VBG pCO2 VBG pO2 VBG HCO3 VBG O2 Saturation VBG Base Excess Anion Gap Estim Creat Clear Calc Estimated GFR Random Glucose Lactic Acid Lactic Acid F/U @ 2Hr 1.6 Calcium Magnesium Ferritin Total Bilirubin AST ALT Alkaline Phosphatase Lactate Dehydrogenase Troponin I High Sens 98.9 H* Total Protein Albumin Urine Color Urine Appearance Urine pH Ur Specific [place] Urine Protein Urine Glucose (UA) Urine Ketones Urine Blood Urine Nitrite Ur Leukocyte Esterase Urine RBC Urine WBC Ur Squamous Epith Cells Urine Bacteria Influenza Type A (PCR) Influenza Type B (PCR) RSV RNA Qual (PCR) SARS-CoV-2 RNA (RT-PCR) 08/09/21 08/10/21 08/10/21 21:26 08:52 08:52 MCV 84.4 MCH 27.9 MCHC 33.0 RDW 13.8 Plt Count 202 MPV 11.7 Immature Gran % (Auto) Neut % (Auto) Lymph % (Auto) Mayes % (Auto) Eos % (Auto) Baso % (Auto) Lymph # (Auto) Mayes # (Auto) Eos # (Auto) Baso # (Auto) Abs Immat Gran (auto) Absolute Neuts (auto) Absolute Nucleated RBC 0.000 Nucleated RBC % (auto) 0.0 D-Dimer High Sensitivty VBG pH VBG pCO2 VBG pO2 VBG HCO3 VBG O2 Saturation VBG Base Excess Anion Gap 12 Estim Creat Clear Calc 48.7 Estimated GFR > 60 Random Glucose 136 H Lactic Acid Lactic Acid F/U @ 2Hr Calcium 8.4 Magnesium Ferritin Total Bilirubin AST ALT Alkaline Phosphatase Lactate Dehydrogenase Troponin I High Sens Total Protein Albumin Urine Color YELLOW Urine Appearance CLEAR Urine pH 6.0 Ur Specific [place] 1.010 Urine Protein TRACE Urine Glucose (UA) NEG Urine Ketones NEG Urine Blood NEG Urine Nitrite NEG Ur Leukocyte Esterase NEG Urine RBC 1-4 Urine WBC 1-4 Ur Squamous Epith Cells 1+ Urine Bacteria 1+ Influenza Type A (PCR) Influenza Type B (PCR) RSV RNA Qual (PCR) SARS-CoV-2 RNA (RT-PCR) Assessment and Plan (1) Physical deconditioning: Status: Acute (2) COVID-19: Status: Acute (3) Acute respiratory failure with hypoxia: Status: Acute Assessment and Plan: a 75 years old lady with PMH of HTN, HLD, GERD among others who (speaks Laotian) presented to the hospital for evaluation of generalized weakness and shortness of breath. COVID-19 infection Symptoms for almost 10 days continue dexamethasone day 2 Oxygen supplement as required Wean down O2 as tolerated Dehydration, decreased p.o. intake DC IVF Encourage p.o. intake and add Ensure Physical deconditioning To do physical therapy and encourage movement Diarrhea Stool testing Imodium Continue rest of her home DVT PPx Lovenox Quality Stroke Does the patient have a stroke diagnosis?: No VTE Prior VTE?: No VTE Risk Level:: Medical - moderate - high VTE Device Contraindication: Treatment Not Indicated VTE Drug Contraindication: N/A - Med Ordered
--- NOTE | 2021-08-10 13:56 | PC.NURSE ---
patient awake/alert, no c/o pain or discomfort, vss, gambling monitor nsr 70s, pt sitting up eating dinner, call maldonado within reach, will continue to monitor.
--- NOTE | 2021-08-10 15:29 | PC.NURSE ---
patient sleeping, wakes to verbal stimulus, pt medicated per order, residential monitor intact, nsr 70s, call maldonado within reach, will continue to monitor.
--- NOTE | 2021-08-10 15:36 | MHC.CM.PN ---
FEMALE 75 DX COVID+. SHE LIVES WITH FAMILY. NO VAX Independent with functional mobility. DP will be determined by the pts recovery. Home with family support. Family will provide transport home.
--- NOTE | 2021-08-10 16:23 | PC.NURSE ---
patient medicated per order
[2021-08-10] MEDS: Enoxaparin Sodium 40 MG/0.4 ML SYRINGE SUBCUT (21:38)
[2021-08-10] MEDS: Atorvastatin Calcium 40 MG TABLET PO (21:38)
[2021-08-11] VITALS (8 sets, daily range): BP systolic 136–195; BP diastolic 61–87; PULSE 54–74; RESP 15–24; TEMP 36.2–36.7; O2SAT 89–96
[2021-08-11] MEDS: 0.9 % Sodium Chloride Flush 3 ML SYRINGE IVFLUSH ×4 (02:55→21:55)
[2021-08-11] MEDS: Omeprazole 40 MG CAPSULE.DR PO (06:34)
[2021-08-11] MEDS: FLUoxetine HCl 10 MG CAPSULE PO (07:32)
[2021-08-11] MEDS: Furosemide 20 MG TABLET PO (07:32)
[2021-08-11] MEDS: Gabapentin 300 MG CAPSULE PO ×3 (07:32→21:53)
[2021-08-11] MEDS: lisinopriL 10 MG TABLET PO (07:32)
[2021-08-11] MEDS: Metoprolol Succinate ER 50 MG TAB.ER.24H PO (07:33)
[2021-08-11] MEDS: dexAMETHasone sod phosphate 4 MG/ML VIAL 6 MG IVPUSH (07:33)
[2021-08-11 08:28] LABS: Anion Gap 14 (12-20); Blood Urea Nitrogen 25 mg/dL (9-16); Calcium 9.4 mg/dL (8.4-10.2); Carbon Dioxide 24 mmol/L (22-29); Chloride 102 mmol/L (96-108); Creatinine Clr Calc Pharmacy 41.9; Estimated Glomerular Filt Rate 58; Glucose Random 168 mg/dL (60-115); Potassium 3.9 mmol/L (3.3-5.1); Sodium 136 mmol/L (135-145)
[2021-08-11 08:33] LABS: C Reactive Protein 12.77 mg/dL (< or = 0.50)
[2021-08-11 08:42] LABS: Lactate Dehydrogenase 257 U/L (122-220)
--- NOTE | 2021-08-11 10:52 | HO.PM.IMPN ---
Subjective Subjective Date of Service: 08/11/21 Interval History: the patient was seen and evaluated this morning Laying in bed, looks more comfortable Still requiring oxygen supplement of 2 L No reported other overnight events. Review of Systems No fever, chills but has generalized weakness No chest pain, palpitation increase shortness of breath and coughing No abdominal pain, nausea or vomiting but has diarrhea No urinary symptoms No any rash or wounds Physical Exam Vital Signs: Vital Signs: Last Vital Signs Temp 98.1 F 08/11/21 06:32 Pulse 60 08/11/21 07:33 Resp 18 08/11/21 07:32 BP 155/67 H 08/11/21 07:33 Pulse Ox 94 08/11/21 07:32 BMI result Body Mass Index 21.2 Const: Other: Constitutional : Alert, oriented, in mild respiratory distress Neck : Normal inspection, Supple Cardiovascular : RRR, S1 S2, no lower extremity edema Respiratory : chest wall moving bilaterally, no audible wheezes, on oxygen supplement Gastrointestinal: soft, lax, Normal bowel sounds, Non tender Skin : Warm, Dry Neurological : Alert & oriented to self, No focal deficit Objective Data Active Medications Acetaminophen (Acetaminophen 325 Mg Tablet) 650 mg PO Q6H PRN PRN Reason: Pain, Mild (Pain Scale 1-3) Atorvastatin Calcium (Atorvastatin Calcium 40 Mg Tablet) 40 mg PO BEDTIME [facility] Last Admin: 08/10/21 21:38 Dose: 40 mg Documented by: REESE Dexamethasone Sodium Phosphate (Dexamethasone Sod Phosphate 4 Mg/Ml Vial) 6 mg IVPUSH DAILY [facility] Last Admin: 08/11/21 07:33 Dose: 6 mg Documented by: KYLE Enoxaparin Sodium (Enoxaparin Sodium 40 Mg/0.4 Ml Syringe) 40 mg SUBCUT Q24H [facility] Last Admin: 08/10/21 21:38 Dose: 40 mg Documented by: REESE Fluoxetine HCl (Fluoxetine Hcl 10 Mg Capsule) 10 mg PO DAILY [facility] Last Admin: 08/11/21 07:32 Dose: 10 mg Documented by: KYLE Furosemide (Furosemide 20 Mg Tablet) 20 mg PO DAILY [facility]; Protocol Last Admin: 08/11/21 07:32 Dose: 20 mg Documented by: KYLE Gabapentin (Gabapentin 300 Mg Capsule) 300 mg PO TID [facility] Last Admin: 08/11/21 07:32 Dose: 300 mg Documented by: KYLE Hydralazine HCl (Hydralazine Hcl 20 Mg/Ml Vial) 5 mg IVPUSH Q4H PRN; Protocol PRN Reason: BP>180/90 Last Admin: 08/09/21 21:47 Dose: 5 mg Documented by: SAHRA Lisinopril (Lisinopril 10 Mg Tablet) 10 mg PO DAILY [facility]; Protocol Last Admin: 08/11/21 07:32 Dose: 10 mg Documented by: KYLE Loperamide HCl (Loperamide Hcl 2 Mg Capsule) 2 mg PO Q4H PRN PRN Reason: Diarrhea Metoprolol Succinate (Metoprolol Succinate Er 50 Mg Tab.Er.24h) 50 mg PO DAILY [facility]; Protocol Last Admin: 08/11/21 07:33 Dose: 50 mg Documented by: KYLE Omeprazole (Omeprazole 40 Mg Capsule.Dr) 40 mg PO DAILY@0630 [facility] Last Admin: 08/11/21 06:34 Dose: 40 mg Documented by: REESE Ondansetron HCl (Ondansetron Hcl 4 Mg/2 Ml Vial) 4 mg IVPUSH Q8H PRN PRN Reason: Nausea and Vomiting Sodium Chloride (0.9 % Sodium Chloride Flush 3 Ml Syringe) 3 ml IVFLUSH QSHIFT [facility] Last Admin: 08/11/21 07:33 Dose: 3 ml Documented by: KYLE Labs CBC & Chem 7: 08/10/21 08:52 08/11/21 07:52 Labs: Laboratory Results - last 24 hr 08/11/21 08/11/21 07:52 07:52 Anion Gap 14 Estim Creat Clear Calc 41.9 Estimated GFR 58 Random Glucose 168 H Calcium 9.4 D Lactate Dehydrogenase 257 H C-Reactive Protein 12.77 H Microbiology Microbiology Results: Microbiology 08/09/21 12:10 Blood Culture - Preliminary Blood - Venous No growth after 24 hours. 08/09/21 12:10 Blood Culture - Preliminary Blood - Venous No growth after 24 hours. Assessment and Plan (1) Acute respiratory failure with hypoxia: Status: Acute (2) Physical deconditioning: Status: Acute Assessment and Plan: a 75 years old lady with PMH of HTN, HLD, GERD among others who (speaks Laotian) presented to the hospital for evaluation of generalized weakness and shortness of breath. Hypoxia 2/2 COVID-19 infection Symptoms for almost 10 days continue dexamethasone day 3 Oxygen supplement as required Wean down O2 as tolerated , on 2 L today, to do home oxygen by tomorrow To do physical therapy by tomorrow Dehydration, decreased p.o. intake DC IVF Encourage p.o. intake and add Ensure Physical deconditioning To do physical therapy and encourage movement Diarrhea Stool testing Imodium Continue rest of her home DVT PPx Lovenox Dispo, patient preferred to go back home. I tried to call the daughter but no one picked up. To do physical therapy tomorrow and home O2 evaluation. neighborhood worker to follow-up. Quality Stroke Does the patient have a stroke diagnosis?: No VTE Prior VTE?: No VTE Risk Level:: Medical - moderate - high VTE Device Contraindication: Treatment Not Indicated VTE Drug Contraindication: N/A - Med Ordered
--- NOTE | 2021-08-11 14:29 | PHA.MEDREC ---
Pharmacy Consult ? Medication Reconciliation Rn completed med rec and pharmacy reviewed.
--- NOTE | 2021-08-11 17:34 | PC.RT ---
08/11/21 attepmted Home O2 eval per MD order. Pt. oxygention WNL on RA at rest. Attempted to walk pt. Patient unsteady when walking, informed RT via aquaculture worker that pt. does not walk much at home and if ambulation is necessary, pt. walks with cane. Pt. walked approximately 10 ft. then requested to sit. Pt. very fatigued, SpO2 below 88% with ambulation. CARMINE Spears informed of information. Pt. not ready for discharge. Physical Therapy eval ordered.
[2021-08-11] MEDS: Atorvastatin Calcium 40 MG TABLET PO (21:53)
[2021-08-11] MEDS: Enoxaparin Sodium 40 MG/0.4 ML SYRINGE SUBCUT (21:54)
[2021-08-12] VITALS (8 sets, daily range): BP systolic 143–174; BP diastolic 60–69; PULSE 55–62; RESP 17–20; TEMP 36.1–37; O2SAT 94–99
[2021-08-12] MEDS: Omeprazole 40 MG CAPSULE.DR PO (05:25)
[2021-08-12 07:13] LABS: Anion Gap 13 (12-20); Blood Urea Nitrogen 27 mg/dL (9-16); Calcium 9.2 mg/dL (8.4-10.2); Carbon Dioxide 25 mmol/L (22-29); Chloride 104 mmol/L (96-108); Creatinine Clr Calc Pharmacy 48.1; Estimated Glomerular Filt Rate > 60; Glucose Random 152 mg/dL (60-115); Potassium 4.8 mmol/L (3.3-5.1); Sodium 137 mmol/L (135-145)
[2021-08-12] MEDS: Gabapentin 300 MG CAPSULE PO ×3 (07:57→20:54)
[2021-08-12] MEDS: lisinopriL 10 MG TABLET PO (07:57)
[2021-08-12] MEDS: Metoprolol Succinate ER 50 MG TAB.ER.24H PO (07:57)
[2021-08-12] MEDS: Furosemide 20 MG TABLET PO (07:57)
[2021-08-12] MEDS: FLUoxetine HCl 10 MG CAPSULE PO (07:57)
[2021-08-12] MEDS: dexAMETHasone sod phosphate 4 MG/ML VIAL 6 MG IVPUSH (07:57)
[2021-08-12] MEDS: 0.9 % Sodium Chloride Flush 3 ML SYRINGE IVFLUSH ×3 (07:58→20:55)
--- NOTE | 2021-08-12 09:51 | P.CDIC_ITS ---
CDI Concurrent Query Documentation Clarification: PHYSICIAN'S DOCUMENTATION REQUEST Date of Query: 08/12/21 0951 Patient Name: Chaitanya Ponce Admit Date: 08/09/21 Dear Doctor, A review of the medical record indicates additional documentation may be needed. Please review below and update the documentation accordingly. Risk Factors/Clinical Indicators/Treatments ED: patient has signs and symptoms of Sepsis due to Covid, 1 liter of fluid, did not want to fluid overload d/t concerns for ARDS. LA 2.2 WBC 15.7 RR 22 H SOB, decreased oral intake, dehydration, fever and body aches. CXR: hazy opacities in the b/l mid and lower lung zones concerning for infectious infiltrates. Please indicate in your progress notes if you are in agreement that the above diagnosis is valid for this patient: Sepsis, POA, Treating, Rule out, Resolved: * Yes, [ ] is a valid diagnosis for this patient * No, [ ] is a not a valid diagnosis for this patient * The diagnosis of [ ] is not yet confirmed but remains a suspected condition: * Other (please specify) * Unable to determine Use of terms such as suspected, likely, concern for, or probable (associated with a specific diagnosis that is being evaluated, monitored, or treated as if it exists) are acceptable and can be coded in the inpatient setting, when documented at the time of discharge. Thank you, Joycelyn Caputo [facility] [place], [facility] Extension: [phone] Please use your independent medical judgment in providing your response. THIS QUERY IS PART OF THE PERMANENT MEDICAL RECORD Provider Response: Other Other Diagnosis: no sepsis is not a valid diagnosis for this patient
--- NOTE | 2021-08-12 11:30 | MHC.CM.PN ---
Patient is on IV Decadron and in need of a home O2 and PT eval; CM will follow.
--- NOTE | 2021-08-12 11:33 | MHC.CM.PN ---
PT is recommending home with family support; CM will follow.
--- NOTE | 2021-08-12 16:12 | HO.PM.IMPN ---
Subjective Subjective Date of Service: 08/12/21 Interval History: no acute issues overnight; did not complete home O2 eval secondary to desat and unsteadiness Review of Systems admits exertional shortness of breath Denies chest pain Denies nausea vomiting diarrhea Physical Exam Vital Signs: Vital Signs: Last Vital Signs Temp 96.9 F 08/12/21 15:10 Pulse 55 08/12/21 15:10 Resp 20 08/12/21 15:10 BP 143/60 H 08/12/21 15:10 Pulse Ox 96 08/12/21 15:10 BMI result Body Mass Index 21.2 Const: Other: no acute distress Resp: Other: clear but diminished bilaterally no rales rhonchi wheezes Cardio: Other: no S4; positive S1-S2; no S3 murmurs rubs gallops GI: Other: soft nontender nondistended normoactive bowel sounds x4 quadrants Extrem: Other: no edema bilaterally Objective Data Active Medications Acetaminophen (Acetaminophen 325 Mg Tablet) 650 mg PO Q6H PRN PRN Reason: Pain, Mild (Pain Scale 1-3) Atorvastatin Calcium (Atorvastatin Calcium 40 Mg Tablet) 40 mg PO BEDTIME [facility] Last Admin: 08/11/21 21:53 Dose: 40 mg Documented by: BRIGIDO Dexamethasone Sodium Phosphate (Dexamethasone Sod Phosphate 4 Mg/Ml Vial) 6 mg IVPUSH DAILY [facility] Last Admin: 08/12/21 07:57 Dose: 6 mg Documented by: PETRA Enoxaparin Sodium (Enoxaparin Sodium 40 Mg/0.4 Ml Syringe) 40 mg SUBCUT Q24H [facility] Last Admin: 08/11/21 21:54 Dose: 40 mg Documented by: BRIGIDO Fluoxetine HCl (Fluoxetine Hcl 10 Mg Capsule) 10 mg PO DAILY [facility] Last Admin: 08/12/21 07:57 Dose: 10 mg Documented by: PETRA Furosemide (Furosemide 20 Mg Tablet) 20 mg PO DAILY [facility]; Protocol Last Admin: 08/12/21 07:57 Dose: 20 mg Documented by: PETRA Gabapentin (Gabapentin 300 Mg Capsule) 300 mg PO TID [facility] Last Admin: 08/12/21 07:57 Dose: 300 mg Documented by: PETRA Hydralazine HCl (Hydralazine Hcl 20 Mg/Ml Vial) 5 mg IVPUSH Q4H PRN; Protocol PRN Reason: BP>180/90 Last Admin: 08/09/21 21:47 Dose: 5 mg Documented by: SAHRA Lisinopril (Lisinopril 10 Mg Tablet) 10 mg PO DAILY [facility]; Protocol Last Admin: 08/12/21 07:57 Dose: 10 mg Documented by: PETRA Loperamide HCl (Loperamide Hcl 2 Mg Capsule) 2 mg PO Q4H PRN PRN Reason: Diarrhea Metoprolol Succinate (Metoprolol Succinate Er 50 Mg Tab.Er.24h) 50 mg PO DAILY [facility]; Protocol Last Admin: 08/12/21 07:57 Dose: 50 mg Documented by: PETRA Omeprazole (Omeprazole 40 Mg Capsule.Dr) 40 mg PO DAILY@0630 [facility] Last Admin: 08/12/21 05:25 Dose: 40 mg Documented by: BRIGIDO Ondansetron HCl (Ondansetron Hcl 4 Mg/2 Ml Vial) 4 mg IVPUSH Q8H PRN PRN Reason: Nausea and Vomiting Sodium Chloride (0.9 % Sodium Chloride Flush 3 Ml Syringe) 3 ml IVFLUSH QSHIFT [facility] Last Admin: 08/12/21 07:58 Dose: 3 ml Documented by: PETRA Labs CBC & Chem 7: 08/10/21 08:52 08/12/21 06:13 Labs: Laboratory Results - last 24 hr 08/12/21 06:13 Anion Gap 13 Estim Creat Clear Calc 48.1 Estimated GFR > 60 Random Glucose 152 H Calcium 9.2 Microbiology Microbiology Results: Microbiology 08/09/21 12:10 Blood Culture - Preliminary Blood - Venous No growth after 48 hours. 08/09/21 12:10 Blood Culture - Preliminary Blood - Venous No growth after 48 hours. Assessment and Plan (1) Acute respiratory failure with hypoxia: Status: Acute (2) Physical deconditioning: Status: Acute (3) COVID-19: Status: Acute Assessment and Plan: 75 yr old female with PMH of HTN, HLD, GERD among others who (speaks Laotian) presented to the hospital for evaluation of generalized weakness and shortness of breath. diagnosed with COVID-19. Failed ambulatory sats today secondary to unsteadiness and desaturation 1. Hypoxia 2/2 COVID-19 infection 10 days out Continue dexamethasone day 4 Oxygen supplement as required....titrate as tolerated 2.Physical deconditioning To do physical therapy and encourage movement 3. HTN Acceptable control on current therapies. DVT PPx Lovenox Quality Stroke Does the patient have a stroke diagnosis?: No VTE Prior VTE?: No VTE Risk Level:: Medical - moderate - high VTE Device Contraindication: Treatment Not Indicated VTE Drug Contraindication: N/A - Med Ordered
[2021-08-12] MEDS: Enoxaparin Sodium 40 MG/0.4 ML SYRINGE SUBCUT (20:54)
[2021-08-12] MEDS: Atorvastatin Calcium 40 MG TABLET PO (20:54)
[2021-08-13] VITALS (8 sets, daily range): BP systolic 143–165; BP diastolic 65–77; PULSE 51–56; RESP 18; TEMP 36.4–37.1; O2SAT 94–99
[2021-08-13] MEDS: Omeprazole 40 MG CAPSULE.DR PO (05:44)
[2021-08-13] MEDS: FLUoxetine HCl 10 MG CAPSULE PO (08:18)
[2021-08-13] MEDS: Gabapentin 300 MG CAPSULE PO ×3 (08:18→20:27)
[2021-08-13] MEDS: lisinopriL 10 MG TABLET PO (08:19)
[2021-08-13] MEDS: Furosemide 20 MG TABLET PO (08:19)
[2021-08-13] MEDS: dexAMETHasone sod phosphate 4 MG/ML VIAL 6 MG IVPUSH (08:20)
[2021-08-13] MEDS: 0.9 % Sodium Chloride Flush 3 ML SYRINGE IVFLUSH ×2 (08:22→16:10)
--- NOTE | 2021-08-13 16:51 | HO.PM.IMPN ---
Subjective Subjective Date of Service: 08/13/21 Interval History: No acute issues overnight. 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 Physical Exam Vital Signs: Vital Signs: Last Vital Signs Temp 98.1 F 08/13/21 15:56 Pulse 55 08/13/21 15:56 Resp 18 08/13/21 15:56 BP 147/72 H 08/13/21 15:56 Pulse Ox 95 08/13/21 15:56 BMI result Body Mass Index 21.2 Const: Other: no acute distress Resp: Other: clear but diminished bilaterally no rales rhonchi wheezes Cardio: Other: no S4; positive S1-S2; no S3 murmurs rubs gallops GI: Other: soft nontender nondistended normoactive bowel sounds x4 quadrants Extrem: Other: no edema bilaterally Objective Data Active Medications Acetaminophen (Acetaminophen 325 Mg Tablet) 650 mg PO Q6H PRN PRN Reason: Pain, Mild (Pain Scale 1-3) Atorvastatin Calcium (Atorvastatin Calcium 40 Mg Tablet) 40 mg PO BEDTIME [facility] Last Admin: 08/12/21 20:54 Dose: 40 mg Documented by: АНДРЕЙ Dexamethasone Sodium Phosphate (Dexamethasone Sod Phosphate 4 Mg/Ml Vial) 6 mg IVPUSH DAILY [facility] Last Admin: 08/13/21 08:20 Dose: 6 mg Documented by: MIGUELITO Enoxaparin Sodium (Enoxaparin Sodium 40 Mg/0.4 Ml Syringe) 40 mg SUBCUT Q24H [facility] Last Admin: 08/12/21 20:54 Dose: 40 mg Documented by: АНДРЕЙ Fluoxetine HCl (Fluoxetine Hcl 10 Mg Capsule) 10 mg PO DAILY [facility] Last Admin: 08/13/21 08:18 Dose: 10 mg Documented by: MIGUELITO Furosemide (Furosemide 20 Mg Tablet) 20 mg PO DAILY [facility]; Protocol Last Admin: 08/13/21 08:19 Dose: 20 mg Documented by: MIGUELITO Gabapentin (Gabapentin 300 Mg Capsule) 300 mg PO TID [facility] Last Admin: 08/13/21 14:26 Dose: 300 mg Documented by: MIGUELITO Hydralazine HCl (Hydralazine Hcl 20 Mg/Ml Vial) 5 mg IVPUSH Q4H PRN; Protocol PRN Reason: BP>180/90 Last Admin: 12/24/21 21:47 Dose: 5 mg Documented by: SAHRA Lisinopril (Lisinopril 10 Mg Tablet) 10 mg PO DAILY [facility]; Protocol Last Admin: 08/13/21 08:19 Dose: 10 mg Documented by: MIGUELITO Loperamide HCl (Loperamide Hcl 2 Mg Capsule) 2 mg PO Q4H PRN PRN Reason: Diarrhea Metoprolol Succinate (Metoprolol Succinate Er 50 Mg Tab.Er.24h) 50 mg PO DAILY [facility]; Protocol Last Admin: 08/13/21 09:20 Dose: Not Given Documented by: MIGUELITO Non-Admin Reason: Decreased Heart Rate Omeprazole (Omeprazole 40 Mg Capsule.Dr) 40 mg PO DAILY@0630 [facility] Last Admin: 08/13/21 05:44 Dose: 40 mg Documented by: АНДРЕЙ Ondansetron HCl (Ondansetron Hcl 4 Mg/2 Ml Vial) 4 mg IVPUSH Q8H PRN PRN Reason: Nausea and Vomiting Sodium Chloride (0.9 % Sodium Chloride Flush 3 Ml Syringe) 3 ml IVFLUSH QSHIFT [facility] Last Admin: 08/13/21 16:10 Dose: 3 ml Documented by: CHERRIE Labs CBC & Chem 7: 08/10/21 08:52 08/12/21 06:13 Assessment and Plan (1) COVID-19: Status: Acute (2) Acute respiratory failure with hypoxia: Status: Acute (3) Physical deconditioning: Status: Acute Assessment and Plan: 75 yr old female with PMH of HTN, HLD, GERD among others who (speaks Laotian) presented to the hospital for evaluation of generalized weakness and shortness of breath. diagnosed with COVID-19. Failed ambulatory sats today secondary to unsteadiness and desaturation 1. Hypoxia 2/2 COVID-19 infection 10 days out Continue dexamethasone day 4 Sats acceptable on room air. Will document formal home O2 eval in a.m.. workforce planner spoke with son and he will pick patient up when appropriate. 2.Physical deconditioning Physical therapy recommending wheeled walker at discharge. .. Will order same 3. HTN Acceptable control on current therapies. DVT PPx Lovenox Quality Stroke Does the patient have a stroke diagnosis?: No VTE Prior VTE?: No VTE Risk Level:: Medical - moderate - high VTE Device Contraindication: Treatment Not Indicated VTE Drug Contraindication: N/A - Med Ordered
[2021-08-13] MEDS: Enoxaparin Sodium 40 MG/0.4 ML SYRINGE SUBCUT (20:27)
[2021-08-13] MEDS: Atorvastatin Calcium 40 MG TABLET PO (20:27)
[2021-08-14] VITALS (12 sets, daily range): BP systolic 127–177; BP diastolic 59–72; PULSE 46–57; RESP 18–20; TEMP 36.5–37.3; O2SAT 93–97
[2021-08-14] MEDS: 0.9 % Sodium Chloride Flush 3 ML SYRINGE IVFLUSH ×4 (02:12→21:53)
[2021-08-14] MEDS: Omeprazole 40 MG CAPSULE.DR PO (06:39)
[2021-08-14] MEDS: Furosemide 20 MG TABLET PO (09:44)
[2021-08-14] MEDS: FLUoxetine HCl 10 MG CAPSULE PO (09:44)
[2021-08-14] MEDS: Gabapentin 300 MG CAPSULE PO ×3 (09:44→21:52)
[2021-08-14] MEDS: lisinopriL 10 MG TABLET PO (09:44)
[2021-08-14] MEDS: dexAMETHasone sod phosphate 4 MG/ML VIAL 6 MG IVPUSH (09:45)
--- NOTE | 2021-08-14 15:19 | MHC.CM.PN ---
Per MD, Patient may be ready for dc this week; CM will follow.
--- NOTE | 2021-08-14 15:29 | P.PNIM_ITS ---
Subjective Subjective Date of Service: 08/14/21 Interval History: Doing well overall. O2 weaned to off. Tolerating room air Review of Systems Denies chest pain Denies shortness of breath Denies bulging dot Physical Exam Vital Signs: Vital Signs: Last Vital Signs Temp 98.3 F 08/14/21 11:24 Pulse 48 L 08/14/21 11:24 Resp 20 08/14/21 11:24 BP 144/66 H 08/14/21 11:50 Pulse Ox 96 08/14/21 11:24 BMI result Body Mass Index 21.2 Const: Other: no acute distress Resp: Other: clear but diminished bilaterally no rales rhonchi wheezes Cardio: Other: no S4; positive S1-S2; no S3 murmurs rubs gallops GI: Other: soft nontender nondistended normoactive bowel sounds x4 quadrants Extrem: Other: no edema bilaterally Objective Data Active Medications Acetaminophen (Acetaminophen 325 Mg Tablet) 650 mg PO Q6H PRN PRN Reason: Pain, Mild (Pain Scale 1-3) Atorvastatin Calcium (Atorvastatin Calcium 40 Mg Tablet) 40 mg PO BEDTIME [facility] Last Admin: 08/13/21 20:27 Dose: 40 mg Documented by: CHERRIE Dexamethasone Sodium Phosphate (Dexamethasone Sod Phosphate 4 Mg/Ml Vial) 6 mg IVPUSH DAILY [facility] Last Admin: 08/14/21 09:45 Dose: 6 mg Documented by: PAN Enoxaparin Sodium (Enoxaparin Sodium 40 Mg/0.4 Ml Syringe) 40 mg SUBCUT Q24H [facility] Last Admin: 08/13/21 20:27 Dose: 40 mg Documented by: CHERRIE Fluoxetine HCl (Fluoxetine Hcl 10 Mg Capsule) 10 mg PO DAILY [facility] Last Admin: 08/14/21 09:44 Dose: 10 mg Documented by: PAN Furosemide (Furosemide 20 Mg Tablet) 20 mg PO DAILY [facility]; Protocol Last Admin: 08/14/21 09:44 Dose: 20 mg Documented by: PAN Gabapentin (Gabapentin 300 Mg Capsule) 300 mg PO TID [facility] Last Admin: 08/14/21 14:40 Dose: 300 mg Documented by: PAN Hydralazine HCl (Hydralazine Hcl 20 Mg/Ml Vial) 5 mg IVPUSH Q4H PRN; Protocol PRN Reason: BP>180/90 Last Admin: 08/09/21 21:47 Dose: 5 mg Documented by: SAHRA Lisinopril (Lisinopril 10 Mg Tablet) 10 mg PO DAILY [facility]; Protocol Last Admin: 08/14/21 09:44 Dose: 10 mg Documented by: PAN Loperamide HCl (Loperamide Hcl 2 Mg Capsule) 2 mg PO Q4H PRN PRN Reason: Diarrhea Metoprolol Succinate (Metoprolol Succinate Er 50 Mg Tab.Er.24h) 50 mg PO DAILY [facility]; Protocol Last Admin: 08/14/21 09:45 Dose: Not Given Documented by: PAN Non-Admin Reason: Decreased Heart Rate Omeprazole (Omeprazole 40 Mg Capsule.Dr) 40 mg PO DAILY@0630 [facility] Last Admin: 08/14/21 06:39 Dose: 40 mg Documented by: MUNIR Ondansetron HCl (Ondansetron Hcl 4 Mg/2 Ml Vial) 4 mg IVPUSH Q8H PRN PRN Reason: Nausea and Vomiting Sodium Chloride (0.9 % Sodium Chloride Flush 3 Ml Syringe) 3 ml IVFLUSH QSHIFT [facility] Last Admin: 08/14/21 09:45 Dose: 3 ml Documented by: PAN Labs CBC & Chem 7: 08/10/21 08:52 08/12/21 06:13 Microbiology Microbiology Results: Microbiology 08/09/21 12:10 Blood Culture - Final Blood - Venous No growth after 5 days. 08/09/21 12:10 Blood Culture - Final Blood - Venous No growth after 5 days. Assessment and Plan (1) Acute respiratory failure with hypoxia: Status: Acute (2) COVID-19: Status: Acute Assessment and Plan: 75 yr old female with PMH of HTN, HLD, GERD among others who (speaks Laotian) presented to the hospital for evaluation of generalized weakness and shortness of breath. diagnosed with COVID-19. Failed ambulatory sats today secondary to unsteadiness and desaturation 1. Hypoxia 2/2 COVID-19 infection 10 days out Continue dexamethasone day t5 Sats acceptable on room air. Will document formal home O2 eval in a.m.. convention planner spoke with son and he will pick patient in am 2.Physical deconditioning Physical therapy recommending wheeled walker at discharge. .. Will order same 3. HTN Acceptable control on current therapies. DVT PPx Lovenox Quality Stroke Does the patient have a stroke diagnosis?: No VTE Prior VTE?: No VTE Risk Level:: Medical - moderate - high VTE Device Contraindication: Treatment Not Indicated VTE Drug Contraindication: N/A - Med Ordered
[2021-08-14] MEDS: Enoxaparin Sodium 40 MG/0.4 ML SYRINGE SUBCUT (21:52)
[2021-08-14] MEDS: Atorvastatin Calcium 40 MG TABLET PO (21:52)
[2021-08-15 03:52] VITALS: BP 143/62; PULSE 57; RESP 19; TEMP 37.3; O2SAT 95
--- NOTE | 2021-08-15 04:39 | PC.NURSE ---
Pt seen on bed, alert and oriented, able to reposition self on bed in slow pace, pt said she still gets SOB with walking, tolerating room air while at rest with o2 sats at low to high 90s.
[2021-08-15] MEDS: Omeprazole 40 MG CAPSULE.DR PO (05:38)
[2021-08-15] MEDS: dexAMETHasone sod phosphate 4 MG/ML VIAL 6 MG IVPUSH (07:42)
[2021-08-15] MEDS: Furosemide 20 MG TABLET PO (07:43)
[2021-08-15 07:44] VITALS: BP 180/81; PULSE 55
[2021-08-15] MEDS: lisinopriL 10 MG TABLET PO (07:44)
[2021-08-15] MEDS: Gabapentin 300 MG CAPSULE PO (07:49)
[2021-08-15] MEDS: FLUoxetine HCl 10 MG CAPSULE PO (07:49)
[2021-08-15 07:50] VITALS: PULSE 55
[2021-08-15] MEDS: 0.9 % Sodium Chloride Flush 3 ML SYRINGE IVFLUSH (07:50)
[2021-08-15 08:00] VITALS: BP 164/62; PULSE 59; RESP 20; TEMP 36.2; O2SAT 96
[2021-08-15 11:05] VITALS: BP 136/65; PULSE 65; RESP 20; TEMP 36.7; O2SAT 95
--- NOTE | 2021-08-15 11:36 | PM.DS ---
DS: Providers Provider Date of Service: 08/15/21 Date of admission: 08/09/21 17:24 Date of discharge: 08/15/21 Primary care physician: Jaya Bean MD DS: Diagnosis Discharge Diagnosis (1) Acute respiratory failure with hypoxia: Status: Acute (2) COVID-19: Status: Acute DS: Summary Hospital Course Hospital Course: 5 years old lady with PMH of HTN, HLD, GERD among others who (speaks Laotian) presented to the hospital for evaluation of generalized weakness and shortness of breath.? The history was taken from the patient, family, ED provider.? The patient has been complaining of symptoms for almost 10 days need he started as a common cold with body aches and fevers but she became very tired and was unable to eat much with decreased appetite and feeling of nausea.? Yesterday she developed diarrhea and has been taking Imodium for it.? Overall she feels she is very weak.Covid positive Hospital Course Admitted..givn IVF's and decadron. Slowly improved....O2 weaned. Now, medically acceptable for discharge. Time Spent with Patient Time attestation: Total time spent providing and/or coordinating discharge services: Discharge coordination time: Greater than 30 minutes Quality: Stroke Does the patient have a stroke diagnosis?: No Physical Exam Vital Signs: Vital Signs: Last Vital Signs Temp 98.0 F 08/15/21 11:05 Pulse 65 08/15/21 11:05 Resp 20 08/15/21 11:05 BP 136/65 08/15/21 11:05 Pulse Ox 95 08/15/21 11:05 BMI result Body Mass Index 21.2 Const: Other: no acute distress Resp: Other: clear but diminished bilaterally no rales rhonchi wheezes Cardio: Other: no S4; positive S1-S2; no S3 murmurs rubs gallops GI: Other: soft nontender nondistended normoactive bowel sounds x4 quadrants Extrem: Other: no edema bilaterally Discharge Plan Discharge Patient Disposition: Home, Self-Care Discharge Diagnosis: Covid 19 Referrals: Jaya Bean MD [Primary Care Provider] - 1 Week Discharge Medications: Continued pantoprazole 40 mg tablet,delayed release (DR/EC) 40 mg PO DAILY Qty: 90 RF: 1 furosemide 20 mg tablet 20 mg PO DAILY Qty: 90 RF: 1 metoprolol succinate 50 mg tablet extended release 24 hr 50 mg PO DAILY Qty: 90 RF: 1 fluoxetine 10 mg capsule 10 mg PO DAILY Qty: 90 RF: 1 gabapentin 300 mg capsule 300 mg PO TID Qty: 270 RF: 1 atorvastatin 40 mg tablet 40 mg PO DAILY Qty: 90 RF: 1 terazosin 1 mg capsule 1 mg PO BEDTIME 30 Days Qty: 30 RF: 0 lisinopril 10 mg Tablet 10 mg PO DAILY RF: 0 Discharge Orders: Discharge Order (Routine); Ordered 08/15/21 Ordered By: Ovi Deleon Diet: advance to usual diet Activity on Discharge: As tolerated Stand Alone Forms: Patient Portal Discharge page Care Plan Goals: Complete course of Decadron. Follow-up with her PCP as scheduled Health Concerns: Advance activity as tolerated Plan of Treatment: Resume all home medications as previous. Add Decadron daily after meal until completed Assessment: As above
--- NOTE | 2021-08-15 11:41 | MHC.CM.PN ---
Female 75 DX Covid+ She has been weaned off oxygen. SPO2 is wnl. She will discharge today to home with family assist. Her son Dexter is providing transportation home.
== END 2021-08-15 12:55 | disposition home or self-care (01) | DRG 177 ==
LOC: HO.ED 17:36 → HO.EDOVER 18:01 → HO.IMC 08-11 14:12
PROVIDERS: Physician Assistant; Admitting Provider Student in an Organized Health Care Education/Training Program; Emergency Provider Emergency Medicine; PCP Internal Medicine; Visit Provider Hospitalist
DX: U07.1 COVID-19 (principal); J96.01 Acute respiratory failure with hypoxia; I10 Essential (primary) hypertension; K21.9 Gastro-esophageal reflux disease without esophagitis; E78.5 Hyperlipidemia, unspecified; E86.0 Dehydration; Z88.6 Allergy status to analgesic agent; Z79.891 Long term (current) use of opiate analgesic; Z79.899 Other long term (current) drug therapy
CPT/HCPCS: 0241U; 36415; 71045; 80048; 80053; 81001; 82728; 82803; 83605; 83615; 83735; 84484; 85025; 85027; 85379; 86140; 87040; 93005; 96361; 96374; 97110; 97162; 99285; J1100; J1650; J2405; J8540

== ENCOUNTER → 2021-10-24 10:32 | Outpatient (BNVA) | payer OTHER, MEDICAID, SELFPAY | PROVIDERS: PCP Internal Medicine; Referring Provider Internal Medicine; Visit Provider Internal Medicine Cardiovascular Disease ==

== ENCOUNTER → 2021-12-13 13:08 | Outpatient (REF) | payer OTHER, MEDICAID, SELFPAY ==
--- NOTE | 2021-12-13 13:13 | HM_ITS ---
TEST PERFORMED: Cardiac event monitoring. REQUESTING PHYSICIAN: Livan Haywood M.D. ENROLLMENT PERIOD: 12/13/2021, to 01/11/2022; 29 days. FINDINGS: In the above monitoring period, the underlying rhythm is sinus. Rates ranged from 49 to 66 beats per minute. No supraventricular or ventricular arrhythmias documented during this monitoring. The patient has symptoms of shortness of breath, racing, fluttering, on 1 occasion correlates with sinus rhythm. CONCLUSION: Essentially unremarkable 30-day event monitoring showing sinus rhythm only. Solo Tiwari MD HS/MODL / [id number]
--- NOTE | 2021-12-13 13:13 | CA_ITS ---
Transthoracic Echocardiogram Patient (Last, First, Middle): Chaitanya Ponce, Gender: Female Date of : 1945 Age: 76 Procedure Date: 12/13/2021 Procedure Type: Transthoracic Echocardiogram Location: OP Height: 154.94 cm Weight: 56.7 kg BSA: 1.55 m2 Heart Rate: bpm BP: 118 / 60 mmHg Programming Development Project Manager: Referring MD: Livan Haywood MD Symptoms: R00.2 - Palpitations Study Quality: Fair ECG Rhythm: Sinus Conclusions: - Normal left ventricular cavity size. There is moderately increased left ventricular wall thickness. The left ventricular systolic function is hyperdynamic. The visually estimated ejection fraction is >70%. - E/E prime ratio is >15, consistent with elevated filling pressures. - Normal right ventricular cavity size and systolic function. Findings Left Ventricle Normal left ventricular cavity size. There is moderately increased left ventricular wall thickness. The left ventricular systolic function is hyperdynamic. The visually estimated ejection fraction is >70%. There is no evidence of regional wall motion abnormalities. Abnormal diastolic function is noted. Spectral Doppler is indicative of an impaired relaxation filling pattern. E/E prime ratio is >15, consistent with elevated filling pressures. Right Ventricle Normal right ventricular cavity size and systolic function. Atria Both atria are normal in size. Aortic Valve There is a normal trileaflet aortic valve. There is no aortic valve stenosis. There is trace (trivial) aortic valve regurgitation. Mitral Valve The mitral valve appears normal. There is no mitral valve regurgitation. There is no mitral valve stenosis. Pulmonic Valve The pulmonic valve is likely normal. Tricuspid Valve Normal tricuspid valve structure and function. There is trace tricuspid valve regurgitation. Normal right atrial pressure. There is no evidence of pulmonary hypertension. Great Vessels All visible segments of the aorta are normal in size. The visualized portions of the pulmonary artery and branches are normal. Venous The inferior vena cava is normal in size and collapses greater than 50% with inspiration. Pericardium/Pleural There is no evidence of pericardial effusion. Prior Study Comparison No prior study available for comparison. Measurements 2D Linear Measurements IVSd: 1.26 0.6-0.9/0.6-1.0 cm LVIDd: 3.56 3.9-5.3/4.2-5.9 cm LVIDd Index: 2.30 2.4-3.2/2.2-3.1 cm/m2 LVIDs: 2.46 2.0-3.6 cm LVPWd: 1.34 0.7-1.1 cm Ao Root: 2.60 2.1-3.5 cm LA Diam: 3.50 2.7-3.8/3.0-4.0 cm LAIDs Index: 2.26 1.5-2.3 cm/m2 LV Mass: 196.17 67-162/88-224 g LV Mass Index: 126.56 43-95/49-115 g/m2 LVOT Diam: 2.00 3.0+(-)1.3 cm 2D Systolic Function EF 4C: 71.70 >55% EF 2C: 68.10 >55% EF BiP: 68.90 >55% Mitral Valve MV Pk E: 0.61 MV PK A: 1.20 MV Decel Time: 312.00 E/A: 0.50 E'Lateral: 2.94 E'Medial: 2.72 E/E' Med: 22.50 E/E' Lat: 20.80 PHT: 91.00 MVA PHT: 2.42 Decel Leslie: 1.96 Aortic Valve AoV Pk Rakesh: 1.32 AoV Mn Rakesh: 0.93 AoV VTI: 0.39 AoV Pk Grad: 7.00 Aov Mn Grad: 4.00 MARQUEZ Cont.VTI: 2.44 LVOT LVOT Pk Rakesh: 1.00 LVOT Mn Rakesh: 0.82 LVOT VTI: 0.31 LVOT Pk Grad: 4.00 LVOT Mn Grad: 3.00 LVOT Diam: 2.00 LVOT Area: 3.14 Diastolic Function MV Pk E: 0.61 MV Pk A: 1.20 E/A: 0.50 E'Medial: 2.72 E/E' Med: 22.50 E' Laterial: 2.94 E/E' Lat: 20.80 Right Ventricle TAPSE (mm): 23.00 Tricuspid Valve TR Pk Rakesh: 2.30 TR Pk Grad: 21.00 RA Press: 3.00 RVSP: 24.00 Great Vessels Aorta Ao Root-2D: 2.60 2.0-3.7 cm Ao Asc: 2.80 2.1-3.4 cm Pulmonary Valve PV Pk Rakesh: 1.04 Peak PV Grad: 4.00 Updated in Other Vendor System with Status of Final Livan Haywood MD electronically signed on 12/16/2021 3:38:45 PM with status of Final
== END ==
LOC: HO.CARD 13:08
PROVIDERS: Visit Provider Internal Medicine Cardiovascular Disease
DX: R00.2 Palpitations (principal)
CPT/HCPCS: 93270; 93306

== ENCOUNTER → 2022-01-20 10:18 | Outpatient (BNVA) | payer OTHER, MEDICAID, SELFPAY | PROVIDERS: PCP Internal Medicine; Referring Provider Internal Medicine; Visit Provider Internal Medicine Cardiovascular Disease | DX: R07.9 Chest pain, unspecified (principal); R00.2 Palpitations; I10 Essential (primary) hypertension | CPT/HCPCS: 93005 ==

== ENCOUNTER → 2022-02-07 10:08 | Outpatient (REF) | payer OTHER, MEDICAID, SELFPAY ==
--- NOTE | ~2022-02-07 | NM_ITS ---
Myocardial perfusion study Indication: Chest pain to evaluate for myocardial ischemia Technique: The patient was brought in for a Lexiscan perfusion study on 02/07/2022. Patient performed low-level exercise and was injected 0.4 mg of Lexiscan intravenously. Within a minute of injection, 25 mCi of sestamibi was given intravenously. Images were obtained using the SPECT gamma camera interlaced with the gating device. Images were obtained in supine position. Resting perfusion study was performed on 02/10/2022. Patient was administered 25 mCi of sestamibi intravenously at rest. Images were then obtained in supine position. Images obtained with and without CT attenuation. Total DLP 79 mGy-cm. Images were processed with the software and compared side to side in short axis, horizontal long axis and vertical long axis views. Findings: The stress perfusion study showed both attenuated corrected as well as non attenuated images there is some minimal thinning of the lateral wall of the LV myocardium. Remainder of the LV myocardium is normally perfused. There is suggestion of left ventricle hypertrophy. The gated study shows normal LV systolic function with calculated LVEF of 71%. LV cavity is normal in size. The gated study shows normal systolic wall thickening and contraction of segments. Resting study shows no change in perfusion pattern compared to stress perfusion study. Gating at rest reveals normal systolic wall motion with ejection fraction at greater than 70%. The findings are consistent with normal myocardial perfusion. NM/NM roger perf SPECT rest & str Impression: 1. Myocardial perfusion imaging study shows normal myocardial perfusion 2. Gated LVEF is 71% 3. Transient ischemic dilatation not present EKG is nondiagnostic for ischemia
--- NOTE | 2022-02-07 10:11 | CA_ITS ---
Acquisition Time: 2022-02-07 10:46:53 Total Exercise Time: 00:02:00 Test Indications: Chest Pain Medications: SEE H Protocol: LEXISCAN Max HR: 087 BPM 61% of Pred: 142 BPM Max BP: 148/076 mmHG Max Work Load: 1.6 METS Pharmacological stress test with Lexican injection, while walking slow on treadmill, without anginal symptoms, with isolated PACs, with normotensive response to injection, with nondiagnostic EKG for ischemia. In recovery she reported fatigue that was treated with Aminophylline 75mg IVP to reverse Lexiscan with resolution of symptom. Nuclear images pending. Test reviewed with Dr Higginbotham Referred By: Livan Haywood Overread By: BRISEIDA RAMIREZ
== END ==
LOC: HO.CARD 10:08
PROVIDERS: Visit Provider Internal Medicine Cardiovascular Disease
DX: R07.9 Chest pain, unspecified (principal)
CPT/HCPCS: 78452; 93017; A9500; J0280; J2785

== ENCOUNTER 2022-08-29 10:18 | Outpatient (REF) | payer OTHER, MEDICAID, SELFPAY ==
--- NOTE | ~2022-08-29 | MM_ITS ---
EXAMINATION: MM SCREENING DIGITAL BREAST TOMOSYNTHESIS, BILATERAL CLINICAL INFORMATION: Screening. Asymptomatic. No prior breast imaging. Age 76. No known family history breast cancer. The lifetime risk of breast cancer based on the Tyrer-Cuzick Model is 1%. COMPARISON: None (current study represents initial baseline exam). TECHNIQUE: Digital breast tomosynthesis is performed in both the craniocaudal and mediolateral oblique views along with computer-aided detection (CAD). Synthesized 2D images are generated from the tomosynthesis. FINDINGS: There are scattered areas of fibroglandular density (ACR BI-RADS breast composition Category b). There are no significant masses, abnormal calcifications, or other abnormalities. There are scattered bilateral vascular calcifications. The axilla and skin contours are unremarkable. MM/MM tomosynthesis screening BI IMPRESSION: No mammographic evidence of malignancy. ASSESSMENT: BI-RADS 1: Negative RECOMMENDATION: Routine annual mammography screening. This patient's information was entered into a reminder system with a target due date for their next mammogram.
[2022-08-29 12:25] LABS: Alanine Aminotransferase 28 U/L (0-31); Albumin Level 4.2 g/dL (3.5-5.0); Alkaline Phosphatase 86 U/L (39-117); Anion Gap 13 (12-20); Aspartate Amino Transferase 27 U/L (5-31); Bilirubin Direct 0.2 mg/dL (0.0-0.5); Bilirubin Total 0.7 mg/dL (0.0-1.0); Blood Urea Nitrogen 17 mg/dL (9-16); Calcium 9.8 mg/dL (8.4-10.2); Carbon Dioxide 29 mmol/L (22-29); Chloride 106 mmol/L (96-108); Cholesterol 168 mg/dL; Estimated Glomerular Filt Rate 44; Glucose Random 125 mg/dL (60-115); HDL Cholesterol 42 mg/dL; LDL Cholesterol Calculated 68 mg/dl; Potassium 4.9 mmol/L (3.3-5.1); Sodium 143 mmol/L (135-145); Total Protein 7.4 g/dL (6.5-8.0); Triglycerides 294 mg/dL
[2022-08-29 12:44] LABS: Thyroid Stimulating Hormone 4.69 uIU/mL (0.32-4.0)
== END 2022-08-29 10:19 | disposition home or self-care (01) ==
LOC: HO.MAMMO 10:18
PROVIDERS: PCP Internal Medicine; Visit Provider Internal Medicine
DX: F41.1 Generalized anxiety disorder (principal); I10 Essential (primary) hypertension; Z12.31 Encounter for screening mammogram for malignant neoplasm of breast
CPT/HCPCS: 36415; 77063; 77067; 80048; 80061; 80076; 84443

== ENCOUNTER → 2023-01-05 11:31 | Outpatient (BNVA) | payer OTHER, MEDICAID, SELFPAY | PROVIDERS: PCP Internal Medicine; Referring Provider Internal Medicine; Visit Provider Internal Medicine Cardiovascular Disease | DX: R00.2 Palpitations (principal); I10 Essential (primary) hypertension | CPT/HCPCS: 93005 ==

== ENCOUNTER 2023-07-13 15:35 | Outpatient (AMB) | payer OTHER, MEDICAID, SELFPAY ==
[2023-07-13 15:38] VITALS: BP 185/75; PULSE 56; BMI 24.0
--- NOTE | 2023-07-13 15:38 | MHC.OFFVIS ---
Intake Vital Signs 07/13/23 15:38 Height 5 ft 1 in Weight 126 lb 15.78 oz BMI 24.0 BP 185/75 H Blood Pressure Location Lt brachial Position Sitting Pulse 56 Pulse Source Pulse Oximeter Intake Visit Reasons: 6 month fu/(KM) Intake Note: chest pain s/b Blow Molder Required: No Director Data Architecture: Director Data Architecture Present Accompanied by: Daughter Allergies aspirin Allergy (Intermediate, Verified 07/13/23 15:41) Nausea and Vomiting lisinopril Adverse Reaction (Mild, Verified 07/13/23 15:41) Cough Medication List - Last Reconciled 07/13/23 by Thais Snowden, KIERSTEN-C albuterol sulfate 90 mcg/actuation (ProAir HFA) 2 puffs inhalation Q6H PRN atorvastatin 40 mg PO DAILY betamethasone dipropionate 0.05% 1 appl topical DAILY PRN fluoxetine 10 mg PO DAILY furosemide 20 mg PO DAILY gabapentin 300 mg PO TID losartan 25 mg PO DAILY metoprolol succinate ER 50 mg PO DAILY pantoprazole 40 mg PO DAILY terazosin 1 mg PO BEDTIME 30 days tramadol 50 mg PO TID PRN HPI 6 month fu/(KM) HPI Details Chaitanya is a 77-year-old female past medical history of hypertension who was previously evaluated for heart palpitations and now presents for follow-up. Today she presents with her daughter who assists with translation. Permit signed. Since her last visit in December she has been feeling generally well. She has not had issues with heart palpitations. She denies any chest discomfort at rest or with activity. No shortness of breath at rest, PND, orthopnea or edema. They did climb the stairs to this office and she did have shortness of breath with that activity. She tolerates normal ADLs at home without concerning symptoms. She takes her meds as directed. Home systolic blood pressure ranging 130s to 160s. [facility] Medical History GERD (gastroesophageal reflux disease) Generalized anxiety disorder Essential (primary) hypertension Surgical History History of appendectomy History of cataract surgery Family History Mother No problems noted. Father Heart disease Brother Heart disease Heart valve replaced Household Members: Family Housing: House Alcohol intake: never Patient Tobacco Use Status: Never used Tobacco e-Cigarette/Vaping Use: Never Used Second Hand Smoke Exposure: No service: No Current occupational status: disabled Cognitive needs: Yes (walker) Hearing needs: No Vision needs: Yes (glasses) Review of Systems Const All systems reviewed & are unremarkable except as noted in HPI and below ENT Details: sinus congestion from a cold Denies dizziness Card Denies chest pain, Denies chest pain at rest, Denies chest pain with activity, Denies rapid heart rate, Denies pedal edema, Denies edema, Denies leg edema, Denies lightheadedness, Denies palpitations, Denies dyspnea, Reports dyspnea on exertion and Denies orthopnea Resp Denies cough, Denies dyspnea and Reports dyspnea on exertion GI Denies hematochezia and Denies change in stool character Musc Denies abnormal gait, Denies limited range of motion, Denies muscle cramps, Denies muscle weakness, Denies numbness, Denies radiating pain into limb, Denies stiffness and Denies tingling Neuro Denies abnormal gait, Denies dizziness, Denies numbness and Denies tingling Endo Denies palpitations Physical Exam Vital Signs: Last Vital Signs Pulse 56 07/13/23 15:38 BP 185/75 H 07/13/23 15:38 BMI result Body Mass Index 24.0 Const General: cooperative, healthy appearing, comfortable and no acute distress Orientation/consciousness: patient oriented x3 Neck Neck: Yes normal visual inspection Resp Effort & Inspection: normal respiratory effort Auscultation: clear to auscultation bilaterally, no crackles, no rales, no rhonchi and no wheezes Cardio Jugular venous distension: no JVD Rate: regular rate Rhythm: regular rhythm Heart sounds: S1 normal heart sound present, S2 normal heart sound present, no murmurs and no rubs Neuro General: patient oriented x3 Extrem General: Yes normal to inspection, No no pedal edema and No calf tenderness Psych Appearance: grossly normal Mental Status: mental status grossly normal Speech and movement: Normal speech and movement present Assessment & Plan Assessment & Plan (1) Essential (primary) hypertension: Code(s): I10 - Essential (primary) hypertension Plan: History of hypertension. Blood pressure elevated at this visit. Initially 185/75, recheck done by me 172/72. She is currently only on metoprolol XL 50mg daily for palpitation and blood pressure control. In the past she was on lisinopril which was stopped due to cough. Is seem she was on losartan back in 2020. Her daughter does not recall any issues with the medication just that her blood pressure did not require all the agents she was on at that time. Currently with her blood pressure elevation and moved elevated blood pressures at home will restart on losartan 25 mg daily. Will plan a BMP in 1 week. Will plan to call her in 2 weeks to assess home blood pressures. Further med adjustments can be made if blood pressures remain elevated. Reviewed low-salt diet, increasing physical activity as able. Cardiology office visit in 3 months, sooner if needed. She tells me she was unable to get a PCP visit until spring. (2) Palpitations: Code(s): R00.2 - Palpitations Plan: Prior reports of heart palpitations. Currently denies any heart palpitations however she is on metoprolol. Cardiac event monitor was done 01/11/2022 showing sinus rhythm with heart rate range 49 to 66. (3) Intermittent chest pain: Code(s): R07.9 - Chest pain, unspecified Plan: Prior reports of chest discomfort. Currently denies any chest discomfort symptoms. Has good activity tolerance with normal ADLs. Did get short of breath when climbing stairs to this office today. A nuclear stress test was done 02/10/2022 which showed normal myocardial perfusion imaging. (4) SOB (shortness of breath) on exertion: Code(s): R06.02 - Shortness of breath Plan: As above Orders: Orders Basic Metabolic Panel Today I10 - Essential (primary) hypertension Medications: New losartan 25 mg PO DAILY 30 tabs 5RF Coding Level of Care Code Est Pt Level 3 (31755) Diagnoses Essential (primary) hypertension I10 Palpitations R00.2 Intermittent chest pain R07.9 SOB (shortness of breath) on exertion R06.02 Time Spent (min) 24
== END 2023-07-13 16:16 | disposition home or self-care (01) ==
PROVIDERS: Visit Provider Nurse Practitioner Family
DX: I10 Essential (primary) hypertension (principal); R00.2 Palpitations; R07.9 Chest pain, unspecified; R06.02 Shortness of breath
CPT/HCPCS: 99213

== ENCOUNTER → 2023-07-13 15:35 | Outpatient (BNVA) | payer OTHER, MEDICAID, SELFPAY | PROVIDERS: Visit Provider Nurse Practitioner Family ==

== ENCOUNTER 2023-07-25 10:25 | Outpatient (REF) | payer OTHER, SELFPAY ==
[2023-07-25 11:33] LABS: Anion Gap 14 (12-20); Blood Urea Nitrogen 21 mg/dL (9-16); Calcium 10.1 mg/dL (8.4-10.2); Carbon Dioxide 28 mmol/L (22-29); Chloride 106 mmol/L (96-108); Estimated Glomerular Filt Rate 49; Glucose Random 151 mg/dL (60-115); Potassium 4.7 mmol/L (3.3-5.1); Sodium 143 mmol/L (135-145)
== END 2023-07-25 10:26 | disposition home or self-care (01) ==
LOC: HO.LAB 10:25
PROVIDERS: PCP Internal Medicine; Visit Provider Nurse Practitioner Family
DX: I10 Essential (primary) hypertension (principal)
CPT/HCPCS: 36415; 80048

== ENCOUNTER 2023-10-13 10:03 | Outpatient (AMB) | payer OTHER, MEDICAID, SELFPAY ==
[2023-10-13 10:07] VITALS: BP 150/72; PULSE 77; BMI 23.5
--- NOTE | 2023-10-13 10:07 | A.OFFVIS_ITS ---
Intake Vital Signs 10/13/23 10:07 Height 5 ft 1 in Weight 124 lb 5.451 oz BMI 23.5 BP 150/72 H Blood Pressure Location Rt brachial Position Sitting Pulse 77 Pulse Source Pulse Oximeter Intake Visit Reasons: 3 mth f/up Field Service Tech Required: No Occupational Health And Safety Manager: Occupational Health And Safety Manager Present Allergies aspirin Allergy (Intermediate, Verified 10/13/23 10:09) Nausea and Vomiting lisinopril Adverse Reaction (Mild, Verified 10/13/23 10:09) Cough Medication List - Last Reconciled 10/13/23 by Thais Snowden NP-C albuterol sulfate 90 mcg/actuation (ProAir HFA) 2 puffs inhalation Q6H PRN atorvastatin 40 mg PO DAILY betamethasone dipropionate 0.05% 1 appl topical DAILY PRN fluoxetine 10 mg PO DAILY furosemide 20 mg PO DAILY gabapentin 300 mg PO TID losartan 25 mg PO DAILY metoprolol succinate ER 50 mg PO DAILY pantoprazole 40 mg PO DAILY terazosin 1 mg PO BEDTIME 30 days tramadol 50 mg PO TID PRN HPI 3 mth f/up HPI Details Chaitanya is an 78-year-old female past medical history of hypertension, prior evaluation for heart palpitations who now presents for follow-up. Today she presents with her son who assists with translation at their request. Permit signed. She has been feeling overall well since her last visit in June. Her symptom of shortness of breath with activity has improved some. She is trying to walk more. She has no chest discomfort at rest or with activity. She is not having issues with heart palpitations. She denies lightheadedness, presyncope, syncope, falls. No PND, orthopnea or edema. She i s taking her medications as directed. She has an upcoming PCP visit due. [facility] Medical History GERD (gastroesophageal reflux disease) Generalized anxiety disorder Essential (primary) hypertension Surgical History History of appendectomy History of cataract surgery Family History Mother No problems noted. Father Heart disease Brother Heart disease Heart valve replaced Social History Household Members: Family Housing: House Alcohol intake: never Patient Tobacco Use Status: Never used Tobacco e-Cigarette/Vaping Use: Never Used Second Hand Smoke Exposure: No service: No Current occupational status: disabled Cognitive needs: Yes (walker) Hearing needs: No Vision needs: Yes (glasses) Review of Systems Const All systems reviewed & are unremarkable except as noted in HPI and below ENT Reports dizziness Card Denies chest pain, Denies chest pain at rest, Denies chest pain with activity, Denies rapid heart rate, Denies pedal edema, Denies edema, Denies leg edema, Denies lightheadedness, Denies palpitations, Denies dyspnea, Denies dyspnea on exertion and Denies orthopnea Resp Denies cough, Denies dyspnea and Denies dyspnea on exertion GI Denies hematochezia and Denies change in stool character Musc Denies abnormal gait, Denies limited range of motion, Denies muscle cramps, Denies muscle weakness, Denies numbness, Denies radiating pain into limb, Denies stiffness and Denies tingling Neuro Denies abnormal gait, Reports dizziness, Denies numbness and Denies tingling Endo Denies palpitations Physical Exam Vital Signs: BMI result Body Mass Index 23.5 Const General: cooperative, healthy appearing, comfortable and no acute distress Orientation/consciousness: patient oriented x3 Neck Neck: Yes normal visual inspection Resp Effort & Inspection: normal respiratory effort Auscultation: clear to auscultation bilaterally, no crackles, no rales, no rhonchi and no wheezes Cardio Jugular venous distension: no JVD Rate: regular rate Rhythm: regular rhythm Heart sounds: S1 normal heart sound present, S2 normal heart sound present, no murmurs and no rubs Neuro General: patient oriented x3 Extrem General: Yes normal to inspection, No no pedal edema and No calf tenderness Psych Appearance: grossly normal Mental Status: mental status grossly normal Speech and movement: Normal speech and movement present Assessment & Plan Assessment & Plan (1) Essential (primary) hypertension: Code(s): I10 - Essential (primary) hypertension Plan: History of hypertension. Blood pressure elevated last visit and losartan 25 mg daily was added. She was continued on metoprolol as well. Blood pressure today is still mildly elevated at 1 50/72. Recheck done by me 148/70. She reports some shortness of breath with walking that she states has improved since last visit. This could be blood pressure related. Will increase her losartan up to 50 mg daily. Will plan for BMP in 1 week. They state understanding of this plan. Blood pressure will be rechecked by her PCP at upcoming visit. Will forward this note to her PCP as well. Reviewed low-salt diet, increasing physical activity as able. Cardiology office visit in 6 months, sooner if needed. (2) Palpitations: Code(s): R00.2 - Palpitations Plan: Prior reports of heart palpitations. Cardiac event monitor was done 01/11/2022 showing sinus rhythm with heart rate range 49 to 66. She has been on metoprolol and states that this has helped with her heart palpitations. Currently no complaints. No med changes made. (3) Intermittent chest pain: Code(s): R07.9 - Chest pain, unspecified Plan: Prior reports of chest discomfort. Currently denies any chest discomfort symptoms. Has good activity tolerance with normal ADLs. A nuclear stress test was done 02/10/2022 which showed normal myocardial perfusion imaging. (4) SOB (shortness of breath) on exertion: Code(s): R06.02 - Shortness of breath Plan: As above Plan Time spent on chart review, documentation, interview assess Orders: Orders Basic Metabolic Panel Today I10 - Essential (primary) hypertension Medications: New losartan 50 mg PO DAILY 30 tabs 6RF Discontinued losartan Discontinued Reason: Doctor's Order 25 mg PO DAILY 30 tabs 5RF Coding Level of Care Code Est Pt Level 3 (01772) Diagnoses Essential (primary) hypertension I10 Palpitations R00.2 Intermittent chest pain R07.9 SOB (shortness of breath) on exertion R06.02 Time Spent (min) 24
== END 2023-10-13 10:30 | disposition home or self-care (01) ==
PROVIDERS: PCP Internal Medicine; Visit Provider Nurse Practitioner Family
DX: I10 Essential (primary) hypertension (principal); R00.2 Palpitations; R07.9 Chest pain, unspecified; R06.02 Shortness of breath
CPT/HCPCS: 99213

== ENCOUNTER → 2023-10-13 10:03 | Outpatient (BNVA) | payer OTHER, MEDICAID, SELFPAY | PROVIDERS: PCP Internal Medicine; Visit Provider Nurse Practitioner Family ==

== ENCOUNTER 2023-12-03 14:48 | Outpatient (AMB) | payer OTHER, MEDICAID, SELFPAY ==
--- NOTE | 2023-12-03 14:54 | A.OFFPC_ITS ---
Vital Signs 12/03/23 14:59 Height 5 ft 1 in Weight 123 lb 2 oz BMI 23.3 BP 130/62 Blood Pressure Location Lt brachial Position Sitting Pulse 55 Pulse Source Pulse Oximeter Pulse Oximetry (%) 97 Oxygen Delivery Method Room Air Intake Visit Reasons: PE Intake Note: Patient is here today for a physical. Supervisor Rice Milling Required: Yes Supervisor Rice Milling Name: Daughter Technical Document Writer: Present Accompanied by: Daughter Allergies aspirin Allergy (Intermediate, Verified 12/04/23 10:33) Nausea and Vomiting lisinopril Adverse Reaction (Mild, Verified 12/04/23 10:33) Cough Medication List - Last Reconciled 12/04/23 by Jaya Bean MD albuterol sulfate 90 mcg/actuation (ProAir HFA) 2 puffs inhalation Q6H PRN atorvastatin 40 mg PO DAILY betamethasone dipropionate 0.05% 1 appl topical DAILY PRN fluoxetine 10 mg PO DAILY furosemide 20 mg PO DAILY gabapentin 300 mg PO TID losartan 50 mg PO DAILY metoprolol succinate ER 50 mg PO DAILY pantoprazole 40 mg PO DAILY tramadol 50 mg PO TID PRN Tobacco use date assessed: 12/03/23 Fall risk assessment: No Falls in past year Last assessed Fall Risk: 12/03/23 Dental Screening Dental Screen Date: 12/03/23 Did you have a dental visit in the last 12 months?: Yes Did you have a dental problem in the last 6 months where you did not have access to dental care?: No Was dental information given to patient?: Patient has dentist HPI PE HPI Details 78 yr old female presents to the office for an annual physical. [facility] Medical History GERD (gastroesophageal reflux disease) Generalized anxiety disorder Essential (primary) hypertension Surgical History History of dental surgery History of appendectomy History of cataract surgery Family History Mother No problems noted. Father Heart disease Brother Heart disease Heart valve replaced Social History Household Members: Family Housing: House Alcohol intake: never Patient Tobacco Use Status: Never used Tobacco e-Cigarette/Vaping Use: Never Used Second Hand Smoke Exposure: No service: No Current occupational status: disabled Cognitive needs: Yes (walker) Hearing needs: No Vision needs: Yes (glasses) Questionnaire PHQ-9 Over the last 2 weeks, how often have you been bothered by any of the following problems? 1. Little interest or pleasure in doing things: not at all 2. Feeling down, depressed, or hopeless: not at all 3. Trouble falling or staying asleep, or sleeping too much: not at all 4. Feeling tired or having little energy: not at all 5. Poor appetite or overeating: not at all 6. Feeling bad about yourself - or that you are a failure or have let yourself or your family down: not at all 7. Trouble concentrating on things, such as reading the newspaper or watching television: not at all 8. Moving or speaking so slowly that other people could have noticed. Or the opposite - being so fidgety or restless that you have been moving around a lot more than usual: not at all 9. Thoughts that you would be better off or of hurting yourself in some way: not at all Total score: 0 Depression Screening Interpretation: Negative Depression Screening Done: Yes Source: Developed by Drs. Geo Barney, Breanne Aragon, Doug Aguilar and colleagues, with an educational hal from [email or web address]. Thrive Questionnaire Date Thrive assessed: 12/03/23 I am a: Patient What is your living situation today?: I have a steady place to live Within the past 12 months, did the food you bought not last and you didn't have the money to get more?: Never true Within the past 12 months, did you worry whether your food would run out before you got money to buy more?: Never true Do you have trouble paying for medicines?: No Do you have trouble getting transportation to medical appointments?: No Do you have trouble paying your heating and electricity bill?: No Do you have trouble taking care of your child, family member or friend?: No Do you have trouble with day-to-day activities such as bathing, preparing meals, shopping, managing finances, etc.?: No Are you currently unemployed and looking for a job?: No Are you interested in more education?: No Currently or been in a relationship where the following occur: no concerns reported THRIVE Score: 0 AUDIT C Alcohol Use Questionnaire (AUDIT-C) 1. How often do you have a drink containing alcohol?: Never Total Score: 0 BELLA-7 AMB Questionnaire BELLA-7 Date BELLA - 7 assessed: 12/03/23 Feeling nervous, anxious, or on edge: 0 = Not at all Not being able to stop or control worryin = Not at all Worrying too much about different things: 0 = Not at all Trouble relaxin = Not at all Being so restless that it is hard to sit still: 0 = Not at all Becoming easily annoyed or irritable: 0 = Not at all Feeling afraid as if something awful might happen: 0 = Not at all Total BELLA-7 score (0-4 normal; 5-9 mild; 10-14 moderate; 15-21 severe): 0 Source: Developed by Drs. Geo Barney, Breanne Aragon, Doug Aguilar and colleagues, with an educational hal from [email or web address]. Physical exam (Primary Care) Vital Signs: Last Vital Signs Pulse 55 12/03/23 14:59 BP 130/62 12/03/23 14:59 Pulse Ox 97 12/03/23 14:59 Oxygen Delivery Method Room Air 12/03/23 14:59 Care Plan Goal for BP management: BP is in range BMI result Body Mass Index 23.3 Tobacco/Smoking Status: Tobacco use Status Tobacco use date assessed 12/03/23 12/03/23 15:09 Patient Tobacco Use Status Never used Tobacco 12/03/23 15:09 e-Cigarette/Vaping Use Never Used 12/03/23 15:09 PHQ-9: PHQ-9 Score PHQ-9: Total score 0 12/03/23 15:31 Depression Screening Interpretation: Negative Thrive Assessment: Date of Thrive Assessment Date Thrive assessed 12/03/23 12/03/23 15:09 Currently or been in a relationship where the following occur: no concerns reported Advance Care Planning discussion: Exists, not on file Date of discussion: 12/03/23 Who was present: Patient and daughter Forms completed: Health Care Proxy and MOLST Time spent: 1-15 minutes, not on file Actual minutes spent: 5 Const General: cooperative and healthy appearing Nutritional Appearance: well nourished Orientation/consciousness: patient oriented x3 Limitations: no limitations HENMT Head: Yes normal to inspection Eyes General: appearance normal, both eyes and all related structures Neck Neck: Yes normal visual inspection Chest Chest palpation & inspection: normal palpation of entire chest wall Resp Effort & Inspection: normal respiratory effort Neuro General: patient oriented x3 Results AMB Hemoglobin A1c AMB Hemoglobin A1c 7.8 % Last Edit by ASHVIN Johnson on 12/03/23 15:21 Results Reviewed Results Reviewed: Laboratory Last Values Hgb A1c (Clinic) 7.8 % (4.0-6.0) H 12/03/23 15:14 Assessment and Plan Assessment & Plan (1) Essential (primary) hypertension: Code(s): I10 - Essential (primary) hypertension Plan: Blood pressure is in range. Furosemide has been stopped. (2) Generalized anxiety disorder: Code(s): F41.1 - Generalized anxiety disorder Plan: Continue SSRI (3) GERD (gastroesophageal reflux disease): Code(s): K21.9 - Gastro-esophageal reflux disease without esophagitis Qualifiers: Esophagitis presence: esophagitis presence not specified Qualified Code(s): K21.9 - Gastro-esophageal reflux disease without esophagitis Plan: Continue PPI (4) Annual physical exam: Code(s): Z00.00 - Encounter for general adult medical examination without abnormal findings Plan: A1c done is high. Encouraged to get fasting bw done. Orders: Orders Basic Metabolic Panel Today I10 - Essential (primary) hypertension Hemoglobin A1c Today I10 - Essential (primary) hypertension Complete Blood Count no Diff Today I10 - Essential (primary) hypertension Thyroid Stimulating Hormone Today I10 - Essential (primary) hypertension Microalbumin, Random (w Creat) Today I10 - Essential (primary) hypertension UA and rflx microscopic Today I10 - Essential (primary) hypertension AMB Hemoglobin A1c 12/03/23 Z13.9 - Encounter for screening, unspecified Lipid Panel Today I10 - Essential (primary) hypertension Liver Panel Today I10 - Essential (primary) hypertension Coding Level of Care Code New Pt Prev Care >65yr (36999) Diagnoses Essential (primary) hypertension I10 Generalized anxiety disorder F41.1 Gastroesophageal reflux disease, unspecified whether esophagitis present K21.9 Esophagitis presence: esophagitis presence not specified Annual physical exam Z00.00 Additional Codes Vital Signs *Quality* - Advance Care Planning discussion: Exists, not on file ([id number]) Vital Signs *Quality* - Time spent: 1-15 minutes, not on file ([id number])
[2023-12-03 14:59] VITALS: BP 130/62; PULSE 55; O2SAT 97; BMI 23.3
== END 2023-12-03 15:52 | disposition home or self-care (01) ==
PROVIDERS: PCP Internal Medicine; Visit Provider Internal Medicine
DX: Z00.00 Encounter for general adult medical examination without abnormal findings (principal); I10 Essential (primary) hypertension; F41.1 Generalized anxiety disorder; K21.9 Gastro-esophageal reflux disease without esophagitis
CPT/HCPCS: 1124F; 83036; 99397

== ENCOUNTER 2023-12-19 10:37 | Outpatient (REF) | payer OTHER, MEDICAID, SELFPAY ==
[2023-12-19 11:03] LABS: Hematocrit 46.9 % (37.0-47.0); Hemoglobin 15.2 g/dl (12.0-16.0); Mean Corpuscular HGB Conc 32.4 g/dl (31.0-35.0); Mean Corpuscular Hemoglobin 27.4 pg (27.0-33.0); Mean Corpuscular Volume 84.5 fL (80.0-98.0); Mean Platelet Volume 11.6 fL (9.4-12.3); Platelet Count 294 X10*3/uL (160-400); Red Blood Count 5.55 X10*6/uL (4.20-5.50); Red Cell Distribution Width 13.9 % (11.0-16.0); White Blood Count 10.5 X10*3/uL (4.8-10.8)
[2023-12-19 11:11] LABS: Appearance Urine Clear; Color Urine Yellow; Glucose Urine UA Negative (Negative); Leukocyte Esterase Urine Negative (Negative); Nitrite Urine Negative (Negative); PH 5.5 (5.0-9.0); Specific Gravity - Urine 1.015 (1.005-1.025); Urine Blood Negative (Negative); Urine Ketones Negative (Negative); Urine Protein Negative (Neg-Trace)
[2023-12-19 11:25] LABS: Estimated Average Glucose 169 mg/dL; Hemoglobin A1c % 7.5 % (<6.0)
[2023-12-19 12:10] LABS: Creatinine Urine 82.94 mg/dL; Microalbumin Urine < 5.0 mg/L
[2023-12-19 12:14] LABS: Alanine Aminotransferase 25 U/L (0-31); Albumin Level 4.5 g/dL (3.5-5.0); Alkaline Phosphatase 80 U/L (39-117); Anion Gap 17 (12-20); Aspartate Amino Transferase 21 U/L (5-31); Bilirubin Direct 0.2 mg/dL (0.0-0.5); Bilirubin Total 0.4 mg/dL (0.0-1.0); Blood Urea Nitrogen 15 mg/dL (9-16); Calcium 10.4 mg/dL (8.4-10.2); Carbon Dioxide 23 mmol/L (22-29); Chloride 107 mmol/L (96-108); Cholesterol 159 mg/dL (<200); Estimated Glomerular Filt Rate 44; Glucose Random 131 mg/dL (60-115); HDL Cholesterol 46 mg/dL (>40); LDL Cholesterol Calculated 54 mg/dL (<100); Potassium 5.2 mmol/L (3.3-5.1); Sodium 142 mmol/L (135-145); Total Protein 8.6 g/dL (6.5-8.0); Triglycerides 295 mg/dL (<150)
[2023-12-19 12:19] LABS: Thyroid Stimulating Hormone 2.52 uIU/mL (0.32-4.0)
== END 2023-12-19 10:38 | disposition home or self-care (01) ==
LOC: HO.LAB 10:37
PROVIDERS: Nurse Practitioner Family; PCP Internal Medicine; Visit Provider Internal Medicine
DX: I10 Essential (primary) hypertension (principal)
CPT/HCPCS: 36415; 80048; 80061; 80076; 81003; 82043; 82570; 83036; 84443; 85027

== ENCOUNTER 2024-01-09 10:18 | Outpatient (REF) | payer OTHER, SELFPAY ==
[2024-01-09 11:43] LABS: Anion Gap 15 (12-20); Blood Urea Nitrogen 21 mg/dL (9-16); Calcium 9.8 mg/dL (8.4-10.2); Carbon Dioxide 23 mmol/L (22-29); Chloride 107 mmol/L (96-108); Estimated Glomerular Filt Rate 44; Glucose Random 148 mg/dL (60-115); Potassium 4.6 mmol/L (3.3-5.1); Sodium 140 mmol/L (135-145)
== END 2024-01-09 10:19 | disposition home or self-care (01) ==
LOC: HO.LAB 10:18
PROVIDERS: Absent Provider Nurse Practitioner Family; PCP Internal Medicine; Visit Provider Internal Medicine
DX: E87.5 Hyperkalemia (principal)
CPT/HCPCS: 36415; 80048

== ENCOUNTER 2024-04-15 12:53 | Outpatient (AMB) | payer OTHER, MEDICAID, SELFPAY ==
--- NOTE | 2024-04-15 12:56 | MHC.OFFVIS ---
Vital Signs 04/15/24 12:57 Height 5 ft 1 in Weight 119 lb 14.903 oz BMI 22.7 BP 138/62 Blood Pressure Location Rt brachial Position Sitting Pulse 49 L Pulse Source Monitor Intake Visit Reasons: 6 mth f/up Er Manager Required: Yes Er Manager Name: daughter Rv Servicer: Rv Servicer Present Accompanied by: Daughter Allergies aspirin Allergy (Intermediate, Verified 04/15/24 13:00) Nausea and Vomiting lisinopril Adverse Reaction (Mild, Verified 04/15/24 13:00) Cough Medication List - Last Reconciled 04/15/24 by Thais Snowden NP-C albuterol sulfate 90 mcg/actuation (ProAir HFA) 2 puffs inhalation Q6H PRN atorvastatin 40 mg PO DAILY betamethasone dipropionate 0.05% 1 appl topical DAILY PRN fluoxetine 10 mg PO DAILY furosemide 20 mg PO DAILY losartan 50 mg PO DAILY metoprolol succinate ER 50 mg PO DAILY pantoprazole 40 mg PO DAILY HPI HPI 6 mth f/up: Details: Chaitanya is an 78-year-old female past medical history of hypertension, heart palpitations, atypical chest discomfort who now presents for follow-up. Today she reports that she has been doing well since her last visit in September. She has not had any concerning chest discomfort or heart palpitations. She does have some issue with fatigue. Her home blood pressures have been well controlled with systolic ranging 120 to 140s. No shortness of breath, PND, orthopnea or edema. No lightheadedness, presyncope, syncope, falls. Taking meds as directed. Doing light activities in the home. Daughter is present and assists with translation at their request. [facility] Medical History GERD (gastroesophageal reflux disease) Generalized anxiety disorder Essential (primary) hypertension Surgical History History of dental surgery History of appendectomy History of cataract surgery Family History Mother No problems noted. Father Heart disease Brother Heart disease Heart valve replaced Social History Household Members: Family Housing: House Alcohol intake: never Patient Tobacco Use Status: Never used Tobacco e-Cigarette/Vaping Use: Never Used Second Hand Smoke Exposure: No service: No Current occupational status: disabled Cognitive needs: Yes (walker) Hearing needs: No Vision needs: Yes (glasses) Review of Systems Const All systems reviewed & are unremarkable except as noted in HPI and below Reports fatigue ENT Denies dizziness Card Denies chest pain, Denies chest pain at rest, Denies chest pain with activity, Denies rapid heart rate, Denies pedal edema, Denies edema, Denies leg edema, Denies lightheadedness, Denies palpitations, Denies dyspnea, Reports dyspnea on exertion and Denies orthopnea Resp Denies cough, Denies dyspnea and Reports dyspnea on exertion GI Denies hematochezia and Denies change in stool character Musc Denies abnormal gait, Denies limited range of motion, Denies muscle cramps, Denies muscle weakness, Denies numbness, Denies radiating pain into limb, Denies stiffness and Denies tingling Neuro Denies abnormal gait, Denies dizziness, Denies numbness and Denies tingling Endo Reports fatigue and Denies palpitations Physical Exam Vital Signs: Last Vital Signs Pulse 49 L 04/15/24 12:57 BP 138/62 04/15/24 12:57 BMI result Body Mass Index 22.7 Const General: cooperative, healthy appearing, comfortable and no acute distress Orientation/consciousness: patient oriented x3 Neck Neck: Yes normal visual inspection Resp Effort & Inspection: normal respiratory effort Auscultation: clear to auscultation bilaterally, no crackles, no rales, no rhonchi and no wheezes Cardio Jugular venous distension: no JVD Rate: regular rate Rhythm: regular rhythm Heart sounds: S1 normal heart sound present, S2 normal heart sound present, no murmurs and no rubs Neuro General: patient oriented x3 Extrem General: Yes normal to inspection, No no pedal edema and No calf tenderness Psych Appearance: grossly normal Mental Status: mental status grossly normal Speech and movement: Normal speech and movement present Office Procedures EKG Details: Today, read by me, sinus bradycardia, left anterior fascicular block, minimal voltage for LVH, nonspecific ST and T-wave abnormality, rate 49, QTC 413 milliseconds [id number], Complete Assessment & Plan Assessment & Plan (1) Sinus bradycardia: Code(s): R00.1 - Bradycardia, unspecified Category: Medical Plan: She has been on metoprolol to help with blood pressure and to help settle prior palpitations. EKG done today shows sinus bradycardia, left anterior fascicular block, nonspecific ST and T-wave abnormality, rate 49. I ambulated her in the [place] using a sat monitor and heart rate carlitos to a high of 63. She does report some fatigue. No lightheadedness, presyncope, syncope, falls. Will reduce metoprolol XL 50 mg down to 25 mg once daily. Daughter periodically checks her pulse using a sat monitor. Instructed to call if she has pulse rates running below 50 at rest. Cardiology follow-up in 3-4 months, sooner if needed (2) Essential (primary) hypertension: Code(s): I10 - Essential (primary) hypertension Category: Medical Plan: History of hypertension. Blood pressure elevated last visit and losartan dose was increased. Home blood pressures have been running good with systolic 120 to 140s. Blood pressure in the office today 138/62. She continues on losartan 50 mg daily as well as metoprolol. Reducing metoprolol dose as above. If blood pressures become more elevated then would suggest adding alternate agent for blood pressure control. According to daughter patient eats lots of bananas and oranges. She recently had labs that did show elevated potassium followed by normalization of potassium on recheck. She may have issues with elevated potassium if her losartan is further increased. Reviewed low-salt diet, increasing physical activity as able. (3) Palpitations: Code(s): R00.2 - Palpitations Category: Medical Plan: Prior reports of heart palpitations. Cardiac event monitor done 01/11/2022 showed sinus rhythm. No recent concerning palpitations. She continues on metoprolol. Dose being reduced as above. (4) Intermittent chest pain: Code(s): R07.9 - Chest pain, unspecified Category: Medical Plan: Prior reports of chest discomfort. Currently denies any chest discomfort symptoms. Has good activity tolerance with normal ADLs. A nuclear stress test was done 02/10/2022 which showed normal myocardial perfusion imaging. Plan Time spent on chart review, documentation, interview assess Medications: New metoprolol succinate ER Dose reduced 25 mg PO DAILY 90 tabs 1RF Discontinued metoprolol succinate ER Discontinued Reason: Doctor's Order 50 mg PO DAILY 90 tabs 1RF Coding Level of Care Code Est Pt Level 3 (98492) Diagnoses Sinus bradycardia R00.1 Essential (primary) hypertension I10 Palpitations R00.2 Intermittent chest pain R07.9 CPT Codes EKG - CPT: [id number], Complete ([id number]) Time Spent (min) 24
[2024-04-15 12:57] VITALS: BP 138/62; PULSE 49; BMI 22.7
== END 2024-04-15 13:28 | disposition home or self-care (01) ==
PROVIDERS: PCP Internal Medicine; Visit Provider Nurse Practitioner Family
DX: R00.1 Bradycardia, unspecified (principal); I10 Essential (primary) hypertension; R00.2 Palpitations; R07.9 Chest pain, unspecified
CPT/HCPCS: 93010; 99213

== ENCOUNTER → 2024-04-15 12:53 | Outpatient (BNVA) | payer OTHER, MEDICAID, SELFPAY | PROVIDERS: PCP Internal Medicine; Visit Provider Nurse Practitioner Family | DX: R00.1 Bradycardia, unspecified (principal); I10 Essential (primary) hypertension; R00.2 Palpitations; R07.89 Other chest pain; Z79.899 Other long term (current) drug therapy | CPT/HCPCS: 93005 ==

== ENCOUNTER 2024-06-08 10:44 | Outpatient (AMB) | payer OTHER, MEDICAID, SELFPAY ==
--- NOTE | 2024-06-08 10:48 | MHC.PC.OV ---
Vital Signs 06/08/24 10:49 Height 5 ft 1 in Weight 123 lb BMI 23.2 BP 120/62 Blood Pressure Location Lt brachial Position Sitting Pulse 55 Pulse Source Pulse Oximeter Pulse Oximetry (%) 97 Oxygen Delivery Method Room Air Intake Visit Reasons: 6mof\u Intake Note: Patient is here to follow up on HTN, GERD. Telehealth Nurse Educator Required: No 4Th Grade Math Teacher: Present Accompanied by: Nephew or Niece Allergies aspirin Allergy (Intermediate, Verified 06/08/24 13:39) Nausea and Vomiting lisinopril Adverse Reaction (Mild, Verified 06/08/24 13:39) Cough Medication List - Last Reconciled 06/08/24 by Jaya Bean MD albuterol sulfate 90 mcg/actuation (ProAir HFA) 2 puffs inhalation Q6H PRN atorvastatin 40 mg PO DAILY betamethasone dipropionate 0.05% 1 appl topical DAILY PRN fluoxetine 10 mg PO DAILY furosemide 20 mg PO DAILY losartan 50 mg PO DAILY metoprolol succinate ER 25 mg PO DAILY pantoprazole 40 mg PO DAILY Tobacco use date assessed: 06/08/24 Fall risk assessment: No Falls in past year Last assessed Fall Risk: 06/08/24 Dental Screening Dental Screen Date: 12/03/23 HPI 6mof\u HPI Details 78-year-old female presents to the office to discuss her chronic medical condition. She is accompanied by her son who is translating. Patient is at baseline state of health. Able to function and do all activities of daily living. Has received the flu vaccine. Compliant with all medications. Reporting no side effects. [facility], [facility] Medical History GERD (gastroesophageal reflux disease) Generalized anxiety disorder Essential (primary) hypertension Surgical History History of dental surgery History of appendectomy History of cataract surgery Family History Mother No problems noted. Father Heart disease Brother Heart disease Heart valve replaced Social History Household Members: Family Housing: House Alcohol intake: never Patient Tobacco Use Status: Never used Tobacco e-Cigarette/Vaping Use: Never Used Second Hand Smoke Exposure: No service: No Current occupational status: disabled Cognitive needs: Yes (walker) Hearing needs: No Vision needs: Yes (glasses) Questionnaire Thrive Questionnaire Date Thrive assessed: 12/03/23 BELLA-7 AMB Questionnaire BELLA-7 Date BELLA - 7 assessed: 12/03/23 Source: Developed by Drs. Geo Barney, Breanne Aragon, Doug Aguilar and colleagues, with an educational hal from [employer] Physical exam (Primary Care) Vital Signs: Last Vital Signs Pulse 55 06/08/24 10:49 BP 120/62 06/08/24 10:49 Pulse Ox 97 06/08/24 10:49 Oxygen Delivery Method Room Air 06/08/24 10:49 BMI result Body Mass Index 23.2 Tobacco/Smoking Status: Tobacco use Status Tobacco use date assessed 06/08/24 06/08/24 11:01 Patient Tobacco Use Status Never used Tobacco 06/08/24 11:01 e-Cigarette/Vaping Use Never Used 06/08/24 11:01 Thrive Assessment: Date of Thrive Assessment Date Thrive assessed 12/03/23 06/08/24 11:01 Const General: cooperative and healthy appearing Nutritional Appearance: well nourished Orientation/consciousness: patient oriented x3 Limitations: no limitations HENMT Head: Yes normal to inspection Eyes General: appearance normal, both eyes and all related structures Neck Neck: Yes normal visual inspection Chest Chest palpation & inspection: normal palpation of entire chest wall Resp Effort & Inspection: normal respiratory effort Neuro General: patient oriented x3 Results AMB Hemoglobin A1c AMB Hemoglobin A1c 8.3 % Last Edit by ASHVIN Johnson on 06/08/24 11:04 Results Reviewed Results Reviewed: Laboratory Last Values Hgb A1c (Clinic) 8.3 % (4.0-6.0) H 06/08/24 10:47 Coding Level of Care Code Est Pt Level 3 (49918) Complex EM visit Add On G2211 Diagnoses Essential (primary) hypertension I10 Generalized anxiety disorder F41.1 Assessment & Plan Assessment & Plan (1) Essential (primary) hypertension: Code(s): I10 - Essential (primary) hypertension Category: Medical Plan: Blood pressure is in range. Continue current medications. (2) Generalized anxiety disorder: Code(s): F41.1 - Generalized anxiety disorder Category: Medical Plan: Condition is stable. Continue current medications Orders: Orders AMB Hemoglobin A1c Today Z13.9 - Encounter for screening, unspecified Lipid Panel Today F41.1 - Generalized anxiety disorder, I10 - Essential (primary) hypertension Liver Panel Today F41.1 - Generalized anxiety disorder, I10 - Essential (primary) hypertension Complete Blood Count no Diff Today F41.1 - Generalized anxiety disorder, I10 - Essential (primary) hypertension Basic Metabolic Panel Today F41.1 - Generalized anxiety disorder, I10 - Essential (primary) hypertension
[2024-06-08 10:49] VITALS: BP 120/62; PULSE 55; O2SAT 97; BMI 23.2
== END 2024-06-08 12:09 | disposition home or self-care (01) ==
PROVIDERS: PCP Internal Medicine; Visit Provider Internal Medicine
DX: I10 Essential (primary) hypertension (principal); F41.1 Generalized anxiety disorder; Z13.9 Encounter for screening, unspecified

== ENCOUNTER → 2024-06-08 10:44 | Outpatient (BNVA) | payer OTHER, MEDICAID, SELFPAY | PROVIDERS: PCP Internal Medicine; Visit Provider Internal Medicine | DX: I10 Essential (primary) hypertension (principal); F41.1 Generalized anxiety disorder; Z79.899 Other long term (current) drug therapy | CPT/HCPCS: 83036 ==

== ENCOUNTER 2024-12-15 08:21 | Outpatient (AMB) | payer MEDICARE, SELFPAY ==
--- NOTE | 2024-12-15 08:30 | MHC.PC.OV ---
Vital Signs 12/15/24 08:32 Height 5 ft 1 in Weight 122 lb 2 oz BMI 23.1 BP 130/70 Blood Pressure Location Lt brachial Position Sitting Pulse 48 L Pulse Source Pulse Oximeter Temp 97.1 F Temp Source Temporal Artery Scan Pulse Oximetry (%) 96 Oxygen Delivery Method Room Air Intake Visit Reasons: 3 month f/u Intake Note: Patient is here to follow up on Hyperkalemia, HTN, GERD. Sorter Lumber Straightener Required: No Electrical Manufacturing Engineer: Present Accompanied by: Daughter Allergies aspirin Allergy (Intermediate, Verified 12/15/24 09:01) Nausea and Vomiting lisinopril Adverse Reaction (Mild, Verified 12/15/24 09:01) Cough Medication List - Last Reconciled 12/15/24 by Jaya Bean MD atorvastatin 40 mg PO DAILY betamethasone dipropionate 0.05% 1 appl topical DAILY PRN fluoxetine 10 mg PO DAILY furosemide 20 mg PO DAILY losartan 50 mg PO DAILY metoprolol succinate ER 25 mg PO DAILY pantoprazole 40 mg PO DAILY Tobacco use date assessed: 12/15/24 Fall risk assessment: No Falls in past year Last assessed Fall Risk: 12/15/24 Dental Screening Dental Screen Date: 12/15/24 Did you have a dental visit in the last 12 months?: Yes Did you have a dental problem in the last 6 months where you did not have access to dental care?: No Was dental information given to patient?: Patient has dentist [facility] Medical History (Updated 12/15/24 @ 09:00 by Jaya Bean MD) Diabetes mellitus GERD (gastroesophageal reflux disease) Generalized anxiety disorder Essential (primary) hypertension Surgical History (Updated 12/15/24 @ 08:40 by ASHVIN Johnson) History of mandibular surgery History of dental surgery History of appendectomy History of cataract surgery Family History Mother No problems noted. Father Heart disease Brother Heart disease Heart valve replaced Social History Household Members: Family Housing: House Alcohol intake: never Patient Tobacco Use Status: Never used Tobacco e-Cigarette/Vaping Use: Never Used Second Hand Smoke Exposure: No service: No Current occupational status: disabled Cognitive needs: Yes (walker) Hearing needs: No Vision needs: Yes (glasses) Questionnaire PHQ-9 Over the last 2 weeks, how often have you been bothered by any of the following problems? 1. Little interest or pleasure in doing things: not at all 2. Feeling down, depressed, or hopeless: not at all 3. Trouble falling or staying asleep, or sleeping too much: not at all 4. Feeling tired or having little energy: not at all 5. Poor appetite or overeating: not at all 6. Feeling bad about yourself - or that you are a failure or have let yourself or your family down: not at all 7. Trouble concentrating on things, such as reading the newspaper or watching television: not at all 8. Moving or speaking so slowly that other people could have noticed. Or the opposite - being so fidgety or restless that you have been moving around a lot more than usual: not at all 9. Thoughts that you would be better off or of hurting yourself in some way: not at all Total score: 0 Depression Screening Interpretation: Negative Depression Screening Done: Yes Source: Developed by Drs. Geo Barney, Breanne Aragon, Doug Aguilar and colleagues, with an educational hal from [employer]. Thrive Questionnaire Date Thrive assessed: 12/15/24 I am a: Patient What is your living situation today?: I have a steady place to live Within the past 12 months, did the food you bought not last and you didn't have the money to get more?: Never true Within the past 12 months, did you worry whether your food would run out before you got money to buy more?: Never true Do you have trouble paying for medicines?: No Do you have trouble getting transportation to medical appointments?: No Do you have trouble paying your heating and electricity bill?: No Do you have trouble taking care of your child, family member or friend?: No Do you have trouble with day-to-day activities such as bathing, preparing meals, shopping, managing finances, etc.?: No Are you currently unemployed and looking for a job?: No Are you interested in more education?: No Please select the resources that you would like help with: None Currently or been in a relationship where the following occur: No concerns reported THRIVE Score: 0 AUDIT C Alcohol Use Questionnaire (AUDIT-C) 1. How often do you have a drink containing alcohol?: Never Total Score: 0 BELLA-7 AMB Questionnaire BELLA-7 Date BELLA - 7 assessed: 12/15/24 Feeling nervous, anxious, or on edge: 0 = Not at all Not being able to stop or control worryin = Not at all Worrying too much about different things: 0 = Not at all Trouble relaxin = Not at all Being so restless that it is hard to sit still: 0 = Not at all Becoming easily annoyed or irritable: 0 = Not at all Feeling afraid as if something awful might happen: 0 = Not at all Total BELLA-7 score (0-4 normal; 5-9 mild; 10-14 moderate; 15-21 severe): 0 Source: Developed by Drs. Geo Barney, Breanne Aragon, Doug Aguilar and colleagues, with an educational hal from [employer]. Physical exam (Primary Care) Vital Signs: Last Vital Signs Temp 97.1 F 12/15/24 08:32 Pulse 48 L 12/15/24 08:32 BP 130/70 12/15/24 08:32 Pulse Ox 96 12/15/24 08:32 Oxygen Delivery Method Room Air 12/15/24 08:32 BMI result Body Mass Index 23.1 Tobacco/Smoking Status: Tobacco use Status Tobacco use date assessed 12/15/24 12/15/24 08:34 Patient Tobacco Use Status Never used Tobacco 12/15/24 08:34 e-Cigarette/Vaping Use Never Used 12/15/24 08:34 PHQ-9: PHQ-9 Score PHQ-9: Total score 0 12/15/24 08:34 Depression Screening Interpretation: Negative Thrive Assessment: Date of Thrive Assessment Date Thrive assessed 12/15/24 12/15/24 08:34 Currently or been in a relationship where the following occur: No concerns reported Advance Care Planning discussion: Exists, not on file Date of discussion: 12/15/24 Who was present: Patient Forms completed: Health Care Proxy and MOLST Coding Level of Care Code Est Pt Level 4 (46766) Diagnoses Essential (primary) hypertension I10 Diabetes mellitus E11.9 Additional Codes Vital Signs *Quality* - Advance Care Planning discussion: Exists, not on file ([id number]) Assessment & Plan Assessment & Plan (1) Essential (primary) hypertension: Code(s): I10 - Essential (primary) hypertension Category: Medical Plan: Blood pressure is in range. Continue current medications. (2) Diabetes mellitus: Code(s): E11.9 - Type 2 diabetes mellitus without complications Category: Medical Plan: A1c has been steadily rising. I have convinced the patient to start metformin. Blood work has been ordered again today. We will start medication based on results. Plan History of Present Illness The patient is a 63-year-old male presenting with concerns regarding weight gain and episodic mild bruising on his palms. He has documented an increase in weight, despite engaging in regular physical activity at least four times a week. His dietary pattern lacks consistency, often with a small breakfast, substantial lunch, and two servings at dinner, although nighttime snacking has been reduced. Incidentally noted bruising, described as ecchymosis on the palms, was reported as appearing and disappearing intermittently, a pattern predating his current anticoagulant therapy. Bruises are noted on both palms without significant exacerbating or alleviating factors. Additionally, the patient is experiencing increased urinary frequency, related to current diuretic usage. Social History - Engages in regular physical exercise, walking at least four times per week. - Described dietary habits include limited breakfast, larger meals at lunch, and two servings at dinner, with cessation of nighttime snacking. Review of Systems - Constitutional: Reports weight gain. - Skin: Reports intermittent ecchymosis on the palms. - Genitourinary: Reports increased urination. - Musculoskeletal: Denies excessive pain related to physical activity. Physical Exam General: Cooperative and healthy appearing Nutritional Appearance: Well nourished Orientation/consciousness: Patient oriented x3 Limitations: No limitations Head: Normal to inspection General: Appearance normal, both eyes and all related structures Neck: Normal visual inspection Chest: Normal palpation of entire chest wall Respiratory: Lungs are sounding good ormal respiratory effort Neurology: Patient oriented x3 Results - Labs (past results): Blood work completed in July and September; no concerns indicated. Plan - Regular physical activity, including walking at least four times per week. - Dietary adjustments to focus on portion control and balanced meals. - Six-month follow-up blood work to assess systemic health and medication impact. - Continuous observation of urinary frequency in relation to diuretic use. Patient was informed and verbally consented to the use of an ambient scribe for clinic note documentation during this visit. Discussion Notes I discussed with the patient the significance of maintaining a consistent physical activity regimen and the importance of dietary modifications with emphasis on portion control to address weight management. I reassured him regarding the nature of his skin bruising, noting it aligns with typical side effects of anticoagulant use, and explained the absence of need for a leadership development instructor consultation. We reviewed past lab results that indicated no current systemic issues, and I ordered follow-up blood work for six months. The expectation is that the diuretic usage accounts for the increased urination; thus, ongoing observation will be necessary. Encouragement was provided to adhere to these strategies and further anticipate a review on the next visit. Patient Instructions - Walk regularly, aiming for at least four exercise sessions per week. - Adapt food intake to focus on smaller, balanced meals. - Do not worry about the palm bruises unless they worsen or become painful. - Continue with the current medication regimen as discussed. - Return in six months for scheduled blood tests. - Monitor any changes in urination and report them if significant changes occur. Orders: Orders Basic Metabolic Panel Today E11.9 - Type 2 diabetes mellitus without complications, I10 - Essential (primary) hypertension Complete Blood Count no Diff Today E11.9 - Type 2 diabetes mellitus without complications, I10 - Essential (primary) hypertension Liver Panel Today E11.9 - Type 2 diabetes mellitus without complications, I10 - Essential (primary) hypertension Thyroid Stimulating Hormone Today E11.9 - Type 2 diabetes mellitus without complications, I10 - Essential (primary) hypertension XR chest 2V Today R05.9 - Cough, unspecified Lipid Panel Today E11.9 - Type 2 diabetes mellitus without complications, I10 - Essential (primary) hypertension Hemoglobin A1c Today E11.9 - Type 2 diabetes mellitus without complications, I10 - Essential (primary) hypertension UA and rflx microscopic Today E11.9 - Type 2 diabetes mellitus without complications, I10 - Essential (primary) hypertension Microalbumin, Random (w Creat) Today E11.9 - Type 2 diabetes mellitus without complications, I10 - Essential (primary) hypertension Medications: Refilled losartan 50 mg PO DAILY 90 tabs 2RF furosemide 20 mg PO DAILY 90 tabs 1RF betamethasone dipropionate 0.05% 1 appl topical DAILY PRN 45 grams 0RF skin irritation
[2024-12-15 08:32] VITALS: BP 130/70; PULSE 48; TEMP 36.2; O2SAT 96; BMI 23.1
== END 2024-12-15 08:59 | disposition home or self-care (01) ==
LOC: HO.HMCH 08:22
PROVIDERS: PCP Internal Medicine; Visit Provider Internal Medicine
DX: I10 Essential (primary) hypertension (principal); E11.9 Type 2 diabetes mellitus without complications; Z00.00 Encounter for general adult medical examination without abnormal findings

== ENCOUNTER → 2024-12-15 08:21 | Outpatient (BNVA) | payer MEDICARE, SELFPAY | PROVIDERS: PCP Internal Medicine; Visit Provider Internal Medicine | DX: I10 Essential (primary) hypertension (principal); K21.9 Gastro-esophageal reflux disease without esophagitis; E11.9 Type 2 diabetes mellitus without complications; R05.9 Cough, unspecified | CPT/HCPCS: 96127; 99212 ==

== ENCOUNTER 2024-12-17 10:18 | Outpatient (REF) | payer OTHER, SELFPAY ==
[2024-12-17 10:52] LABS: Hematocrit 42.7 % (37.0-47.0); Hemoglobin 14.2 g/dl (12.0-16.0); Mean Corpuscular HGB Conc 33.3 g/dl (31.0-35.0); Mean Corpuscular Hemoglobin 27.8 pg (27.0-33.0); Mean Corpuscular Volume 83.7 fL (80.0-98.0); Mean Platelet Volume 11.5 fL (9.4-12.3); Platelet Count 218 X10*3/uL (160-400); White Blood Count 8.8 X10*3/uL (4.8-10.8)
[2024-12-17 11:06] LABS: Estimated Average Glucose 183 mg/dL; Hemoglobin A1C 243.3836 umol/L; Total Hemoglobin (HGBA1C) 3781.6637 umol/L
[2024-12-17 11:07] LABS: Appearance Urine Cloudy; Color Urine Yellow; Glucose Urine UA Negative (Negative); Leukocyte Esterase Urine Negative (Negative); Nitrite Urine Negative (Negative); Urine Blood Negative (Negative); Urine Ketones Negative (Negative); Urine Protein Negative (Neg-Trace)
[2024-12-17 11:29] LABS: Alanine Aminotransferase 30 U/L (0-31); Albumin Level 4.1 g/dL (3.5-5.0); Anion Gap 15 (12-20); Aspartate Amino Transferase 35 U/L (5-31); Bilirubin Direct 0.2 mg/dL (0.0-0.5); Blood Urea Nitrogen 18 mg/dL (9-16); Calcium 9.5 mg/dL (8.4-10.2); Carbon Dioxide 25 mmol/L (22-29); Chloride 107 mmol/L (96-108); Cholesterol 179 mg/dL (<200); Estimated Glomerular Filt Rate 47; Glucose Random 147 mg/dL (60-115); HDL Cholesterol 49 mg/dL (>40); LDL Cholesterol Calculated 83 mg/dL (<100); Potassium 4.6 mmol/L (3.3-5.1); Sodium 142 mmol/L (135-145); Total Protein 7.4 g/dL (6.5-8.0); Triglycerides 239 mg/dL (<150)
[2024-12-17 11:31] LABS: Creatinine Urine 174.84 mg/dL
[2024-12-17 11:43] LABS: Bilirubin Total 0.7 mg/dL (0.0-1.0)
[2024-12-17 11:50] LABS: Thyroid Stimulating Hormone 2.96 uIU/mL (0.32-4.0)
[2024-12-17 13:11] LABS: Alkaline Phosphatase 72 U/L (39-117)
== END 2024-12-17 10:19 | disposition home or self-care (01) ==
LOC: HO.LAB 10:18
PROVIDERS: PCP Internal Medicine; Visit Provider Internal Medicine
DX: E11.9 Type 2 diabetes mellitus without complications (principal); I10 Essential (primary) hypertension
CPT/HCPCS: 36415; 80048; 80061; 80076; 81003; 82043; 82570; 83036; 84443; 85027

== ENCOUNTER 2024-12-23 09:21 | Outpatient (REF) | payer OTHER, SELFPAY ==
--- NOTE | ~2024-12-23 | XR_ITS ---
CLINICAL HISTORY: R05.9 - Cough, unspecified Two views of the chest. COMPARISON: None FINDINGS: Cardiomegaly. Atherosclerotic thoracic aorta. Prominence of the central pulmonary vasculature. No consolidation. Mild bronchial wall thickening. No pleural effusion or pneumothorax. No acute fracture. IMPRESSION: 1. Mild bronchial wall thickening. Nonspecific finding can be seen with pulmonary edema or a multifocal infectious or inflammatory process. 2. Cardiomegaly with central pulmonary vascular congestion. This document has been electronically signed by: Florencio Simms MD on 12/24/2024 12:47:48
== END 2024-12-23 09:22 | disposition home or self-care (01) ==
LOC: HO.XRAY 09:21
PROVIDERS: PCP Internal Medicine; Visit Provider Internal Medicine
DX: R05.9 Cough, unspecified (principal)
CPT/HCPCS: 71046

== ENCOUNTER → 2024-12-23 09:31 | Outpatient (BNV) | payer OTHER, SELFPAY | PROVIDERS: PCP Internal Medicine; Visit Provider Radiology Diagnostic Radiology | DX: I51.7 Cardiomegaly (principal); J81.1 Chronic pulmonary edema | CPT/HCPCS: 71046 ==

== ENCOUNTER 2024-12-26 15:13 | Outpatient (AMB) | payer MEDICARE, SELFPAY ==
--- NOTE | 2024-12-26 15:25 | A.OFFVIS_ITS ---
Vital Signs 12/26/24 15:27 Height 5 ft 1 in Weight 121 lb 4.068 oz BMI 22.9 BP 130/62 Blood Pressure Location Lt brachial Position Sitting Pulse 57 Pulse Source Pulse Oximeter Intake Visit Reasons: 4m follow up r/s 10-19-24 Surveyor Hydrographic Required: No Surveyor Hydrographic Services: Surveyor Hydrographic Offered & Declined Surveyor Hydrographic Name: daughter Accompanied by: Daughter Allergies aspirin Allergy (Intermediate, Verified 12/15/24 09:01) Nausea and Vomiting lisinopril Adverse Reaction (Mild, Verified 12/15/24 09:01) Cough Medication List - Last Reconciled 12/26/24 by Livan Haywood MD atorvastatin 40 mg PO DAILY betamethasone dipropionate 0.05% 1 appl topical DAILY PRN fluoxetine 10 mg PO DAILY furosemide 20 mg PO DAILY losartan 50 mg PO DAILY metoprolol succinate ER 25 mg PO DAILY pantoprazole 40 mg PO DAILY HPI Comments Details: Pleasant 79-year-old female who is here for palpitations and fatigue. She had COVID-19 infection in July 2021 Since then she has been experiencing some palpitations. She is saying she had palpitations for and saw late Dr De. she does not remember any cause was found. She is saying she has been getting palpitations x 1 week. She has had 3 episodes. No CP. [facility] Medical History (Updated 12/15/24 @ 09:00 by Jaya Bean MD) Diabetes mellitus GERD (gastroesophageal reflux disease) Generalized anxiety disorder Essential (primary) hypertension Surgical History History of mandibular surgery History of dental surgery History of appendectomy History of cataract surgery Family History Mother No problems noted. Father Heart disease Brother Heart disease Heart valve replaced Social History Household Members: Family Housing: House Alcohol intake: never Patient Tobacco Use Status: Never used Tobacco e-Cigarette/Vaping Use: Never Used Second Hand Smoke Exposure: No service: No Current occupational status: disabled Cognitive needs: Yes (walker) Hearing needs: No Vision needs: Yes (glasses) Review of Systems Const Denies chills, Denies fatigue, Denies fever(s), Denies frequent falls, Reports weakness, Denies weight gain and Denies weight loss ENT Reports dizziness Card Denies chest pain, Denies leg edema, Reports lightheadedness, Reports palpitations, Denies dyspnea and Denies dyspnea on exertion Resp Denies cough, Denies dyspnea and Denies dyspnea on exertion GI Denies hematochezia Musc Denies abnormal gait, Denies muscle weakness, Denies numbness, Denies radiating pain into limb and Denies tingling Neuro Denies abnormal gait, Reports dizziness, Denies frequent falls, Denies numbness, Denies tingling and Reports weakness Endo Denies fatigue and Reports palpitations Physical Exam Vital Signs: Last Vital Signs Pulse 57 12/26/24 15:27 BP 130/62 12/26/24 15:27 BMI result Body Mass Index 22.9 GENERAL APPEARANCE: in no acute distress, pleasant. NECK: no carotid bruit, no jugular venous distention. SKIN: no suspicious lesions, warm and dry. HEART: no murmurs, regular rate and rhythm. LUNGS: clear to auscultation bilaterally. ABDOMEN: soft, nontender. EXTREMITIES: no edema. PERIPHERAL PULSES: equal. NEUROLOGIC: No gross deficits, AAO X 3 Assessment & Plan Assessment & Plan (1) Palpitations: Code(s): R00.2 - Palpitations Category: Medical Plan 79 female here for f/u. She has h/o palpitations with no cause found in the past. She has been getting more palpitations x 1 week. She is saying she had 3 episodes. We discussed and we have decided to repeat Holter. Denying any chest pain or SOB. f/u in few months. Orders: Orders ECG 7 day holter monitor Today R00.2 - Palpitations Coding Level of Care Code Est Pt Level 3 (42078) Diagnoses Palpitations R00.2
[2024-12-26 15:27] VITALS: BP 130/62; PULSE 57; BMI 22.9
== END 2024-12-26 16:00 | disposition home or self-care (01) ==
LOC: HO.HCS 15:14
PROVIDERS: PCP Internal Medicine; Visit Provider Internal Medicine Cardiovascular Disease
DX: R00.2 Palpitations (principal)
CPT/HCPCS: 99213

== ENCOUNTER → 2024-12-26 15:13 | Outpatient (BNVA) | payer MEDICARE, SELFPAY | PROVIDERS: PCP Internal Medicine; Visit Provider Internal Medicine Cardiovascular Disease | DX: R00.2 Palpitations (principal) | CPT/HCPCS: 99212 ==

== ENCOUNTER → 2025-01-27 09:38 | Outpatient (REF) | payer MEDICARE, SELFPAY | LOC: HO.CARD 09:38 | PROVIDERS: PCP Internal Medicine; Visit Provider Internal Medicine Cardiovascular Disease | DX: R00.2 Palpitations (principal) | CPT/HCPCS: 93242 ==

== ENCOUNTER → 2025-01-27 09:41 | Outpatient (BNV) | payer MEDICARE, SELFPAY | PROVIDERS: PCP Internal Medicine; Visit Provider Internal Medicine Cardiovascular Disease | DX: I49.1 Atrial premature depolarization (principal) | CPT/HCPCS: 93244 ==

== ENCOUNTER 2025-02-09 13:17 | Outpatient (AMB) | payer MEDICARE, SELFPAY ==
--- NOTE | 2025-02-09 13:23 | A.OFFPC_ITS ---
Vital Signs 02/09/25 13:24 Height 5 ft 1 in Weight 120 lb BMI 22.7 BP 128/68 Blood Pressure Location Lt brachial Position Sitting Pulse 56 Pulse Source Pulse Oximeter Temp 96.4 F L Temp Source Temporal Artery Scan Pulse Oximetry (%) 98 Oxygen Delivery Method Room Air Intake Visit Reasons: PE Annual Intake Note: Patient is here today for a physical. pt requesting for glucose testing supplies. 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 Accompanied by: Daughter Allergies aspirin Allergy (Intermediate, Verified 02/09/25 13:46) Nausea and Vomiting metformin Allergy (Intermediate, Verified 02/09/25 13:46) Fatigued lisinopril Adverse Reaction (Mild, Verified 02/09/25 13:46) Cough Medication List - Last Reconciled 02/09/25 by Jaya Bean MD atorvastatin 40 mg PO DAILY betamethasone dipropionate 0.05% 1 appl topical DAILY PRN fluoxetine 10 mg PO DAILY furosemide 20 mg PO DAILY losartan 50 mg PO DAILY metformin 500 mg PO BID metoprolol succinate ER 25 mg PO DAILY pantoprazole 40 mg PO DAILY Tobacco use date assessed: 02/09/25 Fall risk assessment: No Falls in past year Last assessed Fall Risk: 02/09/25 Dental Screening Dental Screen Date: 12/15/24 [facility] Medical History (Updated 02/09/25 @ 13:48 by Jaya Bean MD) Annual physical exam Diabetes mellitus GERD (gastroesophageal reflux disease) Generalized anxiety disorder Essential (primary) hypertension Surgical History History of mandibular surgery History of dental surgery History of appendectomy History of cataract surgery Family History Mother No problems noted. Father Heart disease Brother Heart disease Heart valve replaced Social History Household Members: Family Housing: House Alcohol intake: never Patient Tobacco Use Status: Never used Tobacco e-Cigarette/Vaping Use: Never Used Second Hand Smoke Exposure: No service: No Current occupational status: disabled Cognitive needs: Yes (walker) Hearing needs: No Vision needs: Yes (glasses) Questionnaire PHQ-9 Over the last 2 weeks, how often have you been bothered by any of the following problems? 1. Little interest or pleasure in doing things: not at all 2. Feeling down, depressed, or hopeless: several days 3. Trouble falling or staying asleep, or sleeping too much: not at all 4. Feeling tired or having little energy: nearly every day 5. Poor appetite or overeating: several days 6. Feeling bad about yourself - or that you are a failure or have let yourself or your family down: not at all 7. Trouble concentrating on things, such as reading the newspaper or watching television: not at all 8. Moving or speaking so slowly that other people could have noticed. Or the opposite - being so fidgety or restless that you have been moving around a lot more than usual: not at all 9. Thoughts that you would be better off or of hurting yourself in some way: not at all Total score: 5 Depression Screening Interpretation: Negative Depression Screening Done: Yes Source: Developed by Drs. Geo Barney, Breanne Aragon, Doug Aguilar and colleagues, with an educational hal from [employer]. Thrive Questionnaire Date Thrive assessed: 12/15/24 BELLA-7 AMB Questionnaire BELLA-7 Date BELLA - 7 assessed: 12/15/24 Source: Developed by Drs. Geo Barney, Breanne Aragon, Doug Aguilar and colleagues, with an educational hal from [employer]. Physical exam (Primary Care) Vital Signs: Last Vital Signs Temp 96.4 F L 02/09/25 13:24 Pulse 56 02/09/25 13:24 BP 128/68 02/09/25 13:24 Pulse Ox 98 02/09/25 13:24 Oxygen Delivery Method Room Air 02/09/25 13:24 Care Plan Goal for BP management: BP is in range. BMI result Body Mass Index 22.7 Tobacco/Smoking Status: Tobacco use Status Tobacco use date assessed 02/09/25 02/09/25 13:30 Patient Tobacco Use Status Never used Tobacco 02/09/25 13:30 e-Cigarette/Vaping Use Never Used 02/09/25 13:30 PHQ-9: PHQ-9 Score PHQ-9: Total score 5 02/09/25 13:37 Depression Screening Interpretation: Negative Thrive Assessment: Date of Thrive Assessment Date Thrive assessed 12/15/24 02/09/25 13:30 Advance Care Planning discussion: Exists, not on file Date of discussion: 02/09/25 Who was present: Patient , daughter Forms completed: Health Care Proxy and MOLST Coding Level of Care Code Est Pt Prev Care >65y(62565) Diagnoses Annual physical exam Z00.00 Additional Codes Vital Signs *Quality* - Advance Care Planning discussion: Exists, not on file ([id number]) Assessment & Plan Assessment & Plan (1) Annual physical exam: Code(s): Z00.00 - Encounter for general adult medical examination without abnormal findings Category: Medical Plan: Discontinue metformin Plan History of Present Illness - The patient is an 79-year-old female presenting with diabetes mellitus. - The patient experienced adverse reactions to Metformin, including fatigue, shaking, and gastrointestinal symptoms such as diarrhea and abdominal pain. - Symptoms began after starting Metformin, with increased severity in the evening. - The patient reported feeling extremely fatigued and experiencing diarrhea, which persisted despite hydration with vitamin water and Pedialyte. - Blood glucose levels were noted to be around 130 mg/dL, but the patient experienced episodes of low blood sugar. - The patient has discontinued Metformin due to these adverse effects. Social History Review of Systems - Gastrointestinal: Reports diarrhea and abdominal pain. - General: Reports fatigue and shaking. Physical Exam General: Cooperative and healthy appearing Nutritional Appearance: Well nourished Orientation/consciousness: Patient oriented x3 Limitations: No limitations Head: Normal to inspection General: Appearance normal, both eyes and all related structures Neck: Normal visual inspection Chest: Normal palpation of entire chest wall Respiratory: N ormal respiratory effort Neurology: Patient oriented x3, but reports episodes of fatigue and shaking after taking medication. Results Plan 1. Diabetes Mellitus - Discontinue Metformin due to adverse reactions. - Monitor blood glucose levels closely to assess for hypoglycemia. 2. Adverse Reaction To Metformin - Discontinue Metformin and avoid future use. - Consider alternative diabetes management options. Discussion Notes The patient was advised to discontinue Metformin due to adverse reactions, including fatigue and gastrointestinal symptoms. Alternative diabetes management options will be considered. Monitoring of blood glucose levels is recommended to prevent hypoglycemia. Follow-up appointments will be scheduled to reassess the patient's condition and adjust treatment as necessary. Patient Instructions - Stop taking Metformin immediately. - Monitor blood sugar levels regularly. - Contact the healthcare provider if symptoms persist or worsen.
[2025-02-09 13:24] VITALS: BP 128/68; PULSE 56; TEMP 35.8; O2SAT 98; BMI 22.7
== END 2025-02-09 13:48 | disposition home or self-care (01) ==
LOC: HO.HMCH 13:18
PROVIDERS: PCP Internal Medicine; Visit Provider Internal Medicine
DX: Z00.00 Encounter for general adult medical examination without abnormal findings (principal)

== ENCOUNTER → 2025-02-09 13:17 | Outpatient (BNVA) | payer MEDICARE, SELFPAY | PROVIDERS: PCP Internal Medicine; Visit Provider Internal Medicine | DX: Z00.00 Encounter for general adult medical examination without abnormal findings (principal); E11.9 Type 2 diabetes mellitus without complications | CPT/HCPCS: 96127; 99397 ==

== ENCOUNTER 2025-02-26 19:30 | Inpatient (IN) | payer OTHER, SELFPAY ==
--- NOTE | 2025-02-26 | ECG_ITS ---
Test Reason : WEAKNESS Blood Pressure : */* mmHG Vent. Rate : 89 BPM Atrial Rate : 89 BPM P-R Int : 176 ms QRS Dur : 70 ms QT Int : 372 ms P-R-T Axes : 41 -54 107 degrees QTcB Int : 452 ms Sinus rhythm with Premature atrial complexes Possible Left atrial enlargement Left anterior fascicular block Left ventricular hypertrophy with repolarization abnormality ( R in aVL ) Abnormal ECG When compared with ECG of 09-Aug-2021 12:26, Premature atrial complexes are now Present Referred By: Generic ED Physician Electronically Signed By: DERECK LAGUNAS
--- NOTE | ~2025-02-26 | CT_ITS ---
CLINICAL HISTORY: periumbilical abd pain, vomiting CT abdomen and pelvis with contrast Comparison: None provided Findings: No consolidation or effusion. There is cardiomegaly. There are multiple gallstones with pericholecystic fluid. Correlate for cholecystitis. Unremarkable solid organs. No urolithiasis. No bowel obstruction, pneumoperitoneum, or pneumatosis. Pelvic contents unremarkable. The appendix is not visualized with no imaging evidence of appendicitis. No acute fracture. IMPRESSION: 1. Cholelithiasis with pericholecystic fluid raising possibility of cholecystitis. Correlate clinically 2. Cardiomegaly This document has been electronically signed by: Clayton Ortiz MD on 02/26/2025 23:12:54
--- NOTE | ~2025-02-26 | XR_ITS ---
CLINICAL HISTORY: dyspnea, hypoxia ?chf Single view of the chest. Comparison 02/26/2025. Findings: The heart is enlarged. The lungs are under ventilated. No definite pleural effusion is seen. Impression: There is interstitial prominence bilaterally suspicious for edema. No definite focal consolidation is seen. This document has been electronically signed by: Julio César Ruiz MD on 02/27/2025 20:59:08
--- NOTE | ~2025-02-26 | XR_ITS ---
CLINICAL HISTORY: weakness 1 view chest x-ray Comparison: None provided Findings: Portions of the exam are obscured by overlying material. No consolidation or effusion. Normal size heart. No acute fracture. IMPRESSION: 1. No acute findings. This document has been electronically signed by: Clayton Ortiz MD on 02/26/2025 22:11:40
--- NOTE | ~2025-02-26 | MR_ITS ---
EXAMINATION: MRCP HISTORY: gallstones, elevated LFTs COMPARISON: Correlation is made with a CT of the abdomen and pelvis with contrast dated 02/26/2025. TECHNIQUE: Axial gradient echo in and out of phase T1, axial T2 and fat suppressed T2, and coronal haste T2 with fat saturation images were obtained through the abdomen. 3D MRCP Reconstructed images and thick slab imaging of the biliary tree were obtained. FINDINGS: There is mild heterogeneous loss of signal intensity within the liver on opposed phase imaging, consistent with steatosis. There is no intrahepatic biliary ductal dilatation. The common bile duct is normal in caliber. No intraluminal filling defects are identified to suggest choledocholithiasis. There is cholelithiasis. There is no pericholecystic fluid or inflammatory change. There is mild edema in the region of the pancreatic tail/upper pole of the left kidney which could indicate pancreatitis. The pancreatic duct is normal in caliber. The spleen, adrenals, and kidneys are unremarkable. No retroperitoneal lymphadenopathy is identified in the upper abdomen. The visualized bones demonstrate normal signal marrow signal intensity. There are trace bilateral pleural effusions. MR/MR MRCP IMPRESSION: 1. Cholelithiasis without evidence of acute cholecystitis. No evidence of choledocholithiasis. 2. Heterogeneous hepatic steatosis. 3. Mild edema about the pancreatic tail which could indicate acute pancreatitis. Correlation with amylase and lipase levels are recommended. Electronically signed by: Geo Samayoa MD 02/27/2025 09:38 AM EDT
[2025-02-26 19:36] VITALS: BP 133/47; PULSE 84; RESP 16; TEMP 36.9; O2SAT 94
[2025-02-26 19:44] VITALS: BP 160/70; PULSE 80; O2SAT 90; BMI 23.2
[2025-02-26 19:47] LABS: Glucose, Whole Blood 170 mg/dL (60-115)
--- NOTE | 2025-02-26 20:03 | MHC.EDTECH ---
Pt incontinent of urine. Complete bedding change done. RN aware
[2025-02-26 20:14] LABS: Hematocrit 40.7 % (37.0-47.0); Hemoglobin 14.2 g/dl (12.0-16.0); Imm Gran Abs Auto 0.04 X10*3/uL (0.00-0.03); Imm Gran Pct Auto 0.3 % (0.0-0.4); Lymphocytes Absolute Auto 0.8 X10*3/uL (1.2-4.9); MANUAL DIFF FLAG NO; Mean Corpuscular HGB Conc 34.9 g/dl (31.0-35.0); Mean Corpuscular Hemoglobin 28.8 pg (27.0-33.0); Mean Corpuscular Volume 82.6 fL (80.0-98.0); NRBC Abs Auto 0.000 X10*3/uL (0.0-0.012); NRBC Pct Auto 0.0 /100WBC (0.0-0.2); Platelet Count 199 X10*3/uL (160-400); Red Blood Count 4.93 X10*6/uL (4.20-5.50); White Blood Count 11.7 X10*3/uL (4.8-10.8)
[2025-02-26 20:30] LABS: Alanine Aminotransferase 593 U/L (0-31); Albumin Level 4.1 g/dL (3.5-5.0); Alkaline Phosphatase 152 U/L (39-117); Anion Gap 17 (12-20); Aspartate Amino Transferase 785 U/L (5-31); Blood Urea Nitrogen 17 mg/dL (9-16); Calcium 9.4 mg/dL (8.4-10.2); Carbon Dioxide 23 mmol/L (22-29); Chloride 106 mmol/L (96-108); Creatinine Clr Calc Pharmacy 32.3; Estimated Glomerular Filt Rate 49; Potassium 4.2 mmol/L (3.3-5.1); Sodium 142 mmol/L (135-145); Total Protein 7.1 g/dL (6.5-8.0)
--- NOTE | 2025-02-26 21:05 | ED.WEAKNESS ---
HPI - Weakness General Chief complaint: Weakness Stated complaint: general malaise Time Seen by Provider: 02/26/25 21:01 Source: family, RN notes reviewed and old records reviewed Mode of arrival: wheelchair Limitations: language barrier History of Present Illness ED Provider: Dr. Ashlee Henry HPI Narrative: 79-year-old female with history of hypertension prediabetes presenting accompanied by her family with reported weakness that began today. In fact patient had been feeling well earlier in the morning and suddenly this afternoon developed ?shakiness and weakness requiring her to lay down in bed this afternoon?. Describes periumbilical abdominal pain associated with this that is nonradiating and has been ongoing constantly since it started. Associated vomiting and nausea but no diarrhea. May have had an episode of diarrhea earlier in the morning but otherwise denies bowel changes or urinary complaints. No known sick contacts. No reported hematochezia or melena. No reported fever but had been shaking like she had the chills according to her granddaughter who is at bedside. Related Data Previous Rx's ?Medication ?Instructions ?Recorded fluoxetine 10 mg capsule 10 mg PO DAILY #90 caps 08/31/24 atorvastatin 40 mg tablet 40 mg PO DAILY #90 tabs 10/31/24 metoprolol succinate 25 mg 25 mg PO DAILY #90 tabs 10/31/24 tablet,extended release 24 hr pantoprazole 40 mg tablet,delayed 40 mg PO DAILY #90 tabs 10/31/24 release betamethasone dipropionate 0.05 % 1 appl topical DAILY PRN skin 12/15/24 topical cream irritation #45 grams furosemide 20 mg tablet 20 mg PO DAILY #90 tabs 12/15/24 losartan 50 mg tablet 50 mg PO DAILY #90 tabs 12/15/24 metformin 500 mg tablet 500 mg PO BID #60 tabs 12/30/24 Allergies Allergy/AdvReac Type Severity Reaction Status Date / Time aspirin Allergy Intermediate Nausea and Verified 02/26/25 19:50 Vomiting metformin Allergy Intermediate Fatigued Verified 02/26/25 19:50 lisinopril AdvReac Mild Cough Verified 02/26/25 19:50 Review of Systems Review of Systems: Yes all other systems are reviewed and are negative (As per HPI) [facility] Past Medical History Source: obtained from family (Prediabetes, hypertension, heart problems , history of appendectomy) Medical History Annual physical exam Diabetes mellitus GERD (gastroesophageal reflux disease) Generalized anxiety disorder Essential (primary) hypertension Surgical History History of mandibular surgery History of dental surgery History of appendectomy History of cataract surgery Family History Family History Mother No problems noted. Father Heart disease Brother Heart disease Heart valve replaced Social History Social History Household Members: Family Housing: House Alcohol intake: never Patient Tobacco Use Status: Never used Tobacco Smoked in Last 30 Days: No e-Cigarette/Vaping Use: Never Used Second Hand Smoke Exposure: No Use of substances other than those prescribed or required for medical reasons: No Advance Directives: Yes Advance Directives Information Provided: Yes Advance Directives on File: No service: No Current occupational status: disabled Cognitive needs: Yes (walker) Hearing needs: No Vision needs: Yes (glasses) Physical Exam Vital Signs: Vital Signs: Last Vital Signs Temp 98.8 F 02/26/25 22:42 Pulse 67 02/27/25 03:26 Resp 18 02/27/25 03:26 BP 115/49 L 02/27/25 03:26 Pulse Ox 95 02/27/25 03:26 O2 Del Method Nasal Cannula 02/27/25 03:26 O2 Flow Rate 2 02/27/25 03:26 BMI result Body Mass Index 23.2 GENERAL: Ill-Appearing, appears uncomfortable. SKIN: Pale, warm, dry, no rashes noted. HEENT: Normocephalic, atraumatic, no stridor, dry mucous membranes, dentition intact, EOMI, PERRLA. NECK: Soft, supple, full ROM, midline structures nontender, no step-offs, no deformities, no lymphadenopathy. CHEST: Heart regular tachycardia, no murmurs, symmetric chest rise and fall. PULMONARY: Clear to auscultation bilaterally, diminished at the bases, no labored breathing, no wheezes/rhales/rhonchi. ABDOMINAL: Soft, nondistended, periumbilical tenderness to palpation with voluntary guarding, hyperactive bowel sounds in all quadrants. : Deferred. MUSCULOSKELETAL: Normal tone, full range of motion, no deformities, no peripheral edema. NEURO: Alert and oriented x3, CN II through XII intact, equal strength and sensation bilateral upper and lower extremities, no focal neurologic deficits. PSYCHIATRIC: Flat affect, fluid speech, good eye contact and appropriate demeanor. Medications Administered Generic Name Dose Route Start Last Admin Trade Name Freq PRN Reason Stop Dose Admin Piperacillin Sod/Tazobactam 50 mls @ 100 mls/hr 02/27/25 02:00 02/27/25 02:35 Sod 3.375 gm/ Sodium Chloride IV Infused Q6H ANTONY Infusion Discontinued Medications Generic Name Dose Route Start Last Admin Trade Name Freq PRN Reason Stop Dose Admin Ceftriaxone Sodium 1 gm 02/26/25 21:38 02/26/25 22:19 Ceftriaxone Sodium 1 Gm Vial IVPUSH 02/26/25 21:39 1 gm ONCE ONE Administration Lactated Ringer's 1,728 mls @ 1,728 mls/hr 02/26/25 21:33 02/27/25 00:39 Lr 30 ml/kg infuse over 1 hr (1728 ml) 02/26/25 22:32 Infused IV Infusion .Q1H ONE Magnesium Sulfate 2 gm in 50 mls @ 25 mls/hr 02/26/25 21:33 02/27/25 00:19 Magnesium Sulfate/H2o IV 02/26/25 23:32 Infused ONCE ONE Infusion Metronidazole 500 mg in 100 mls @ 100 mls/hr 02/26/25 23:35 02/27/25 02:01 Flagyl IV 02/27/25 00:34 Infused ONCE ONE Infusion Piperacillin Sod/Tazobactam 100 mls @ 200 mls/hr 02/26/25 23:45 02/27/25 01:49 Sod 4.5 gm/ Sodium Chloride IV Not Given Q6H ANTONY Iohexol 85 ml 02/26/25 22:30 02/26/25 22:31 Iohexol 350 Mg/Ml 100 Ml Infus..Btl IV 02/26/25 22:31 85 ml ONCE ONE Administration Morphine Sulfate 4 mg 02/26/25 21:33 02/26/25 22:18 Morphine Sulfate 4 Mg/Ml Cartridge IVPUSH 02/26/25 21:34 4 mg ONCE ONE Administration Protocol Ondansetron HCl 4 mg 02/26/25 21:33 02/26/25 22:19 Ondansetron Hcl 4 Mg/2 Ml Vial IVPUSH 02/26/25 21:34 4 mg ONCE ONE Administration Medical Decision Making Medical Decision Making [facility] Narrative: This patient presents today with a chief complaint of abdominal pain, weakness, shakiness. Differential diagnosis for this patient is broad. It includes gastroenteritis, cholecystitis or other biliary pathology such as cholangitis, bowel obstruction, peptic ulcer disease, pyelonephritis, vascular pathology, among many others. A broad-based workup based on history and physical examination was obtained. 10:39pm informed the patient has an elevated lactic acid of 2.7. I had already ordered blood cultures, lactic, 30 cc/kg fluid bolus and a dose of Rocephin upon initial evaluation of her blood work that was ordered from triage. She has what looks to be an obstructive pattern in her LFTs, accompanied by reports of potential rigors, treated as infection. Awaiting CT results. I see some gallbladder changes that could be consistent with cholecystitis. 11:38 p.m. and red but there is nothing CT indeed does show evidence of acute cholecystitis with pericholecystic fluid and cholelithiasis. Case discussed with general surgeon on-call, Dr. Adrian, who recommends admission to medicine and will see her tomorrow morning. 12:30 a.m. patient seen and evaluated by Dr. Adrian who ordered MRCP for tomorrow. Differential Diagnosis Differential Diagnoses: The differential diagnosis associated with the presentation includes (As above) Admission/Observation Consideration of admission/observation: Escalation of care including admission/observation considered Consult Healthcare Provider Management of the patient was discussed with: Hospitalist (Dr. Ordoñez) and Corporate Controller (General surgery, Dr. Adrian) Dr. Adrian will evaluate the patient in the morning, requests admit to Medicine Lab Data [facility] Lab Attestation statement: I reviewed the patient's lab results. White blood cell count mildly elevated at 11.7 02/26/25 20:09 02/26/25 20:09 Labs: Lab Results 02/26/25 02/26/25 02/26/25 Range/Units 19:42 20:09 22:15 WBC 11.7 H (4.8-10.8) X10*3/uL RBC 4.93 (4.20-5.50) X10*6/uL Hgb 14.2 (12.0-16.0) g/dl Hct 40.7 (37.0-47.0) % MCV 82.6 (80.0-98.0) fL MCH 28.8 (27.0-33.0) pg MCHC 34.9 (31.0-35.0) g/dl RDW 13.9 (11.0-16.0) % Plt Count 199 (160-400) X10*3/uL MPV 11.8 (9.4-12.3) fL Immature Gran % (Auto) 0.3 (0.0-0.4) % Neut % (Auto) 88.4 H (45-73) % Lymph % (Auto) 6.4 L (20-40) % Pender % (Auto) 4.4 (2-11) % Eos % (Auto) 0.2 (0-4) % Baso % (Auto) 0.3 (0-2) % Lymph # (Auto) 0.8 L (1.2-4.9) X10*3/uL Pender # (Auto) 0.5 (0.1-1.2) X10*3/uL Eos # (Auto) 0.0 (0.0-0.4) X10*3/uL Baso # (Auto) 0.0 (0.0-0.2) X10*3/uL Abs Immat Gran (auto) 0.04 H (0.00-0.03) X10*3/uL Absolute Neuts (auto) 10.4 H (2.0-8.3) x10*3/uL Absolute Nucleated RBC 0.000 (0.0-0.012) X10*3/uL Nucleated RBC % (auto) 0.0 (0.0-0.2) /100WBC Sodium 142 (135-145) mmol/L Potassium 4.2 (3.3-5.1) mmol/L Chloride 106 (96-108) mmol/L Carbon Dioxide 23 (22-29) mmol/L Anion Gap 17 (12-20) BUN 17 H (9-16) mg/dL Creatinine 1.08 (0.5-1.4) mg/dL Estim Creat Clear Calc 32.3 Estimated GFR 49 POC Glucose 170 H (60-115) mg/dL Random Glucose 153 H (60-115) mg/dL Lactic Acid 2.7 H* (0.5-2.0) mmol/L Calcium 9.4 (8.4-10.2) mg/dL Magnesium 1.5 L (1.6-2.6) mg/dL Total Bilirubin 2.1 H (0.0-1.0) mg/dL AST 785 H (5-31) U/L ALT 593 H (0-31) U/L Alkaline Phosphatase 152 H (39-117) U/L Total Protein 7.1 (6.5-8.0) g/dL Albumin 4.1 (3.5-5.0) g/dL Urine Color Yellow Urine Appearance Clear Urine pH 5.5 (5.0-9.0) Ur Specific [place] 1.010 (1.005-1.025) Urine Protein Negative (Neg-Trace) mg/dL Urine Glucose (UA) Negative (Negative) mg/dL Urine Ketones Negative (Negative) mg/dL Urine Blood Negative (Negative) Urine Nitrite Negative (Negative) Ur Leukocyte Esterase Negative (Negative) Influenza Type A (PCR) NEGATIVE (Negative) Influenza Type B (PCR) NEGATIVE (Negative) RSV RNA Qual (PCR) NEGATIVE (Negative) SARS-CoV-2 RNA (RT-PCR) NEGATIVE (Negative) Independent Interpretation I performed an independent interpretation of an: EKG, Plain X-Ray and CT Scan Interpretation: My independent interpretation of the ECG reveals normal sinus rhythm with rate of 89, PACs, leftward axis, normal intervals, no ST elevations or depressions to suggest ischemic changes, LVH, relatively unchanged from previous on 08/09/2021. 9:35 p.m. My independent interpretation of the chest x-ray reveals no consolidations, pulmonary edema, pleural effusion, pneumothorax, obvious bony abnormalities. 10:[address] with potential gallbladder pathology, patchy infiltrates at the bases of the lungs, motion artifact. Awaiting final read by radiologist. Radiology Impression Discussion of test interpretation with radiology: I have reviewed the radiologist's reading. Independent Historian Clinical information obtained from an independent historian. History obtained from or confirmed by: Other (Daughter, granddaughter) External Record Review External record reviewed: Prior outpatient labs Chronic Conditions Patient?s care impacted by: Diabetes and Hypertension Critical Care Time Critical Care Time Critical Care Time: Yes Total Critical Care Time: 44 Attestation: Time is exclusive of separately billable procedures. Time includes: direct patient care, patient reassessment, coordination of patient care, interpretation of data (laboratory data, pulse oximetry, arterial blood gases and chest xrays), review of patient's medical records, medical consultation and documentation of patient care. Procedures excluded from critical care time: central intravenous line placement and electrocardiography. Discharge Plan Discharge Clinical Impression: Acute cholecystitis due to biliary calculus, Severe sepsis with acute organ dysfunction, Hypomagnesemia Patient Disposition: Admitted As Inpatient
[2025-02-26 21:26] LABS: Magnesium 1.5 mg/dL (1.6-2.6)
[2025-02-26 21:51] VITALS: BP 127/46; PULSE 84; RESP 24; O2SAT 96
[2025-02-26] MEDS: Magnesium Sulfate/H2O 2 GM/50 ML PIGGYBACK IV (22:19)
[2025-02-26 22:24] LABS: Appearance Urine Clear; Glucose Urine UA Negative (Negative); PH 5.5 (5.0-9.0); Specific Gravity - Urine 1.010 (1.005-1.025)
[2025-02-26] MEDS: iohexoL 350 MG/ML 100 ML INFUS..BTL 85 ML IV (22:31)
[2025-02-26 22:42] VITALS: BP 125/53; PULSE 88; RESP 44; TEMP 37.1; O2SAT 97
[2025-02-26 22:57] LABS: Resp Syncy Virus RNA Qual PCR NEGATIVE (Negative); SARS COV2 PCR INHOUSE NEGATIVE (Negative)
[2025-02-27] VITALS (12 sets, daily range): BP systolic 94–165; BP diastolic 36–70; PULSE 57–78; RESP 16–20; TEMP 36.2–37.1; O2SAT 93–95; BMI 23.2
[2025-02-27 00:18] LABS: Reflex Lactate? Lactic Acid Added
[2025-02-27] MEDS: metroNIDAZOLE/NS 500 MG/100 ML PIGGYBACK 100 MG IV (01:01)
--- NOTE | 2025-02-27 01:03 | P.CONGS_ITS ---
History of Present Illness Consult details Consult date: 02/27/25 Narrative: [age] old female brought to the ER because of weakness and chills. The family says this happened sometime in the afternoon. She also apparently had complained of pain in the periumbilical area. She was reported to have some episodes of nausea and vomiting Currently, she seems more comfortable although had received some pain medications She had recent been diagnosed to have diabetes. She was started on metformin a month ago. According to the daughter, she does not seem to have been doing well with metformin and has been weeks since that time overall. She remains active and ambulating at home. Review of Systems 2 Constitutional: Constitutional: Reports chills and Denies fever(s) Cardiovascular: Cardiovascular: Denies chest pain, Denies dyspnea and Denies dyspnea on exertion Respiratory: Respiratory: Denies cough, Denies dyspnea and Denies dyspnea on exertion Gastrointestinal: Gastrointestinal: Denies hematochezia and Denies change in bowel habits Genitourinary: Genitourinary: Denies hematuria Musculoskeletal: Musculoskeletal: Denies back pain and Denies limited range of motion Neurologic: Denies focal weakness and Denies convulsions Psychiatric: Psychiatric: Denies depression and Denies mood swings PMFSH Past Medical History Medical History PAF (paroxysmal atrial fibrillation) Annual physical exam Diabetes mellitus GERD (gastroesophageal reflux disease) Generalized anxiety disorder Essential (primary) hypertension Family History Family History Mother No problems noted. Father Heart disease Brother Heart disease Heart valve replaced Surgical History Surgical History History of mandibular surgery History of dental surgery History of appendectomy History of cataract surgery Social History Social History Household Members: Family Household Members Other:: DAUGHTER Housing: House Do you presently have visiting nurse or other home services: No Alcohol intake: never Patient Tobacco Use Status: Never used Tobacco e-Cigarette/Vaping Use: Never Used Second Hand Smoke Exposure: No Advance Directives Date on File: 02/27/25 service: No Current occupational status: disabled Cognitive needs: Yes (walker) Hearing needs: No Vision needs: Yes (glasses) Meds Allergies Allergy/AdvReac Type Severity Reaction Status Date / Time aspirin Allergy Intermediate Nausea and Verified 02/26/25 19:50 Vomiting metformin Allergy Intermediate Fatigued Verified 02/26/25 19:50 lisinopril AdvReac Mild Cough Verified 02/26/25 19:50 Active Medications: Current Medications Piperacillin Sod/Tazobactam (Sod 4.5 gm/ Sodium Chloride) 100 mls @ 200 mls/hr IV Q6H ANTONY Morphine Sulfate (Morphine Sulfate 4 Mg/Ml Cartridge) 4 mg IVPUSH Q4H PRN; Protocol PRN Reason: Pain, Severe (Pain Scale 7-10) Ondansetron HCl (Ondansetron Hcl 4 Mg/2 Ml Vial) 4 mg IVPUSH Q4H PRN PRN Reason: Nausea and Vomiting Home Medications ?Medication ?Instructions ?Recorded ?Confirmed ?Last Taken ?Type pantoprazole 40 mg tablet,delayed 40 mg PO DAILY@0630 02/27/25 02/27/25 02/26/25 History release Physical Exam 2 Vital Signs: Vital Signs: Last Vital Signs Temp 98.8 F 02/26/25 22:42 Pulse 88 02/26/25 22:42 Resp 44 H 02/26/25 22:42 BP 125/53 L 02/26/25 22:42 Pulse Ox 97 02/26/25 22:42 O2 Del Method Room Air 02/26/25 22:42 O2 Flow Rate 2 02/26/25 21:51 BMI result Body Mass Index 23.2 Const: Other: Appears sleepy currently General: comfortable and no acute distress Neck: Neck: Yes no lymphadenopathy Resp: Auscultation: clear to auscultation bilaterally Cardio: Rhythm: regular rhythm GI: Other: Some tenderness on the right side of the abdomen, no guarding or rebound Palpation (GI): Soft to palpation, nontender and no guarding Results Labs 02/28/25 06:00 02/28/25 06:00 Labs: Abnormal lab results 02/26/25 02/26/25 02/26/25 Range/Units 19:42 20:09 22:15 WBC 11.7 H (4.8-10.8) X10*3/uL Neut % (Auto) 88.4 H (45-73) % Lymph % (Auto) 6.4 L (20-40) % Lymph # (Auto) 0.8 L (1.2-4.9) X10*3/uL Abs Immat Gran (auto) 0.04 H (0.00-0.03) X10*3/uL Absolute Neuts (auto) 10.4 H (2.0-8.3) x10*3/uL BUN 17 H (9-16) mg/dL POC Glucose 170 H (60-115) mg/dL Random Glucose 153 H (60-115) mg/dL Lactic Acid 2.7 H* (0.5-2.0) mmol/L Magnesium 1.5 L (1.6-2.6) mg/dL Total Bilirubin 2.1 H (0.0-1.0) mg/dL AST 785 H (5-31) U/L ALT 593 H (0-31) U/L Alkaline Phosphatase 152 H (39-117) U/L Short CBC 02/26/25 Range/Units 20:09 WBC 11.7 H (4.8-10.8) X10*3/uL Hgb 14.2 (12.0-16.0) g/dl Hct 40.7 (37.0-47.0) % Plt Count 199 (160-400) X10*3/uL BMP 02/26/25 20:09 Sodium 142 Potassium 4.2 Chloride 106 Carbon Dioxide 23 BUN 17 H Creatinine 1.08 Calcium 9.4 Liver Function 02/26/25 Range/Units 20:09 Total Bilirubin 2.1 H (0.0-1.0) mg/dL AST 785 H (5-31) U/L ALT 593 H (0-31) U/L Alkaline Phosphatase 152 H (39-117) U/L Albumin 4.1 (3.5-5.0) g/dL Urine 02/26/25 Range/Units 22:15 Urine Color Yellow Urine Appearance Clear Urine pH 5.5 (5.0-9.0) Ur Specific [place] 1.010 (1.005-1.025) Urine Protein Negative (Neg-Trace) mg/dL Urine Glucose (UA) Negative (Negative) mg/dL All other labs normal. Assessment and Plan (1) Acute cholecystitis due to biliary calculus: Status: Acute She was brought to the ER because of weakness, chills, as well as abdominal pain. Her CAT scan shows gallstones, with mild thickening of the gallbladder wall. The gallbladder itself does not appeared to be markedly distended. Findings may however suggest cholecystitis . She does have elevated bilirubin and LFTs are also markedly elevated. I would recommend doing an MRCP to rule out any CBD stones. We should continue to trend her LFTs. We will check her lipase. She may benefit from cholecystectomy at some point. I have discussed the above with the family. We will follow along closely while she is in the hospital. Her lactate was mildly elevated so that this should be rechecked as well. She currently appears to be hemodynamically stable and comfortable Procedures Date of Service Date of Service: 03/01/25
[2025-02-27 01:30] LABS: ~Lactic Acid-LAB USE ONLY 3.0 mmol/L (0.5-2.0)
--- NOTE | 2025-02-27 03:02 | PC.NURSE ---
Messaged Dr. Ordoñez in regards to repeat lactic being elevated. Per Dr. Ordoñez, no additional lactic levels or maintenance fluids at this time.
[2025-02-27 03:05] LABS: Reflex Lactate? 2 Y
[2025-02-27 05:14] LABS: ~Lactic Acid-LAB USE ONLY 2.8 mmol/L (0.5-2.0)
--- NOTE | 2025-02-27 05:14 | P.HPHOSP_ITS ---
History of Present Illness Date of Service: 02/27/25 Chief Complaint: Abd pain, vomiting This is a 79-year-old female with pertinent history of rrd-gqsyjur-rtdeovhba diabetes mellitus, hypertension, mixed hyperlipidemia, mood disorder, gastroesophageal reflux disease who presents to the emergency department for evaluation of abdominal pain and vomiting. History obtained with the help of grandson at bedside. Patient's symptoms started on the day of presentation. She started having pain in the periumbilical region which was constant, nonradiating and without any relieving factors. Also had multiple episodes of associated nausea and vomiting. Patient developed chills on the day of presentation. Endorses malaise and easy fatigability. No documented fever. No chest pain, palpitations, shortness of breath, changes in urinary or bowel habits. In the emergency department, imaging with acute cholecystitis. General surgery was consulted who requested admission to medicine team. Review of Systems 2 Constitutional: Constitutional: Reports chills Cardiovascular: Cardiovascular: Reports no additional cardiovascular complaints Respiratory: Respiratory: Reports no additional respiratory complaints Gastrointestinal: Gastrointestinal: Reports abdominal pain, Reports nausea and Reports vomiting [facility] Medical History Annual physical exam Diabetes mellitus GERD (gastroesophageal reflux disease) Generalized anxiety disorder Essential (primary) hypertension Family History Mother No problems noted. Father Heart disease Brother Heart disease Heart valve replaced Surgical History History of mandibular surgery History of dental surgery History of appendectomy History of cataract surgery Social History Household Members: Family Housing: House Alcohol intake: never Patient Tobacco Use Status: Never used Tobacco Smoked in Last 30 Days: No e-Cigarette/Vaping Use: Never Used Second Hand Smoke Exposure: No Use of substances other than those prescribed or required for medical reasons: No Advance Directives: Yes Advance Directives Information Provided: Yes Advance Directives on File: No service: No Current occupational status: disabled Cognitive needs: Yes (walker) Hearing needs: No Vision needs: Yes (glasses) Meds Allergies Allergy/AdvReac Type Severity Reaction Status Date / Time aspirin Allergy Intermediate Nausea and Verified 02/26/25 19:50 Vomiting metformin Allergy Intermediate Fatigued Verified 02/26/25 19:50 lisinopril AdvReac Mild Cough Verified 02/26/25 19:50 Active Medications: Current Medications Piperacillin Sod/Tazobactam (Sod 3.375 gm/ Sodium Chloride) 50 mls @ 100 mls/hr IV Q6H ANTONY Last Infusion: 02/27/25 02:35 Dose: Infused Morphine Sulfate (Morphine Sulfate 4 Mg/Ml Cartridge) 4 mg IVPUSH Q4H PRN; Protocol PRN Reason: Pain, Severe (Pain Scale 7-10) Ondansetron HCl (Ondansetron Hcl 4 Mg/2 Ml Vial) 4 mg IVPUSH Q4H PRN PRN Reason: Nausea and Vomiting Physical Exam 2 Vital Signs and Narrative: Vital Signs: Last Vital Signs Temp 98.8 F 02/26/25 22:42 Pulse 67 02/27/25 03:26 Resp 18 02/27/25 03:26 BP 115/49 L 02/27/25 03:26 Pulse Ox 95 02/27/25 03:26 O2 Del Method Nasal Cannula 02/27/25 03:26 O2 Flow Rate 2 02/27/25 03:26 BMI result Body Mass Index 23.2 Elderly female lying in bed in no distress Neck supple, no JVD Regular rate and rhythm, S1-S2 heard Regular breath sounds bilaterally, no wheezing or crackles appreciated Abdomen with right-sided tenderness, no rigidity Patient is awake, alert and oriented to self, place, time and person ; no focal motor deficit Psych: Normal mood No pedal edema Results Labs 02/26/25 20:09 02/26/25 20:09 Labs: Laboratory Results - last 24 hr 02/26/25 02/26/25 02/26/25 19:42 20:09 22:15 MCV 82.6 MCH 28.8 MCHC 34.9 RDW 13.9 Plt Count 199 MPV 11.8 Immature Gran % (Auto) 0.3 Neut % (Auto) 88.4 H Lymph % (Auto) 6.4 L Hand % (Auto) 4.4 Eos % (Auto) 0.2 Baso % (Auto) 0.3 Lymph # (Auto) 0.8 L Hand # (Auto) 0.5 Eos # (Auto) 0.0 Baso # (Auto) 0.0 Abs Immat Gran (auto) 0.04 H Absolute Neuts (auto) 10.4 H Absolute Nucleated RBC 0.000 Nucleated RBC % (auto) 0.0 Anion Gap 17 Estim Creat Clear Calc 32.3 Estimated GFR 49 POC Glucose 170 H Random Glucose 153 H Lactic Acid 2.7 H* Lactic Acid F/U @ 2Hr Calcium 9.4 Magnesium 1.5 L Total Bilirubin 2.1 H AST 785 H ALT 593 H Alkaline Phosphatase 152 H Total Protein 7.1 Albumin 4.1 Urine Color Yellow Urine Appearance Clear Urine pH 5.5 Ur Specific [place] 1.010 Urine Protein Negative Urine Glucose (UA) Negative Urine Ketones Negative Urine Blood Negative Urine Nitrite Negative Ur Leukocyte Esterase Negative Influenza Type A (PCR) NEGATIVE Influenza Type B (PCR) NEGATIVE RSV RNA Qual (PCR) NEGATIVE SARS-CoV-2 RNA (RT-PCR) NEGATIVE 02/27/25 01:03 MCV MCH MCHC RDW Plt Count MPV Immature Gran % (Auto) Neut % (Auto) Lymph % (Auto) Hand % (Auto) Eos % (Auto) Baso % (Auto) Lymph # (Auto) Hand # (Auto) Eos # (Auto) Baso # (Auto) Abs Immat Gran (auto) Absolute Neuts (auto) Absolute Nucleated RBC Nucleated RBC % (auto) Anion Gap Estim Creat Clear Calc Estimated GFR POC Glucose Random Glucose Lactic Acid Lactic Acid F/U @ 2Hr 3.0 H* Calcium Magnesium Total Bilirubin AST ALT Alkaline Phosphatase Total Protein Albumin Urine Color Urine Appearance Urine pH Ur Specific [place] Urine Protein Urine Glucose (UA) Urine Ketones Urine Blood Urine Nitrite Ur Leukocyte Esterase Influenza Type A (PCR) Influenza Type B (PCR) RSV RNA Qual (PCR) SARS-CoV-2 RNA (RT-PCR) Assessment and Plan (1) Acute cholecystitis due to biliary calculus: Status: Acute Plan This is a 79-year-old female with pertinent history of lbf-yhojhxt-izlitktoe diabetes mellitus, hypertension, mixed hyperlipidemia, mood disorder, gastroesophageal reflux disease who presents to the emergency department for evaluation of abdominal pain and vomiting. #. Acute calculous cholecystitis: Will admit patient with IV Zosyn. General surgery on board. Noted elevated LFTs, will order MRCP to rule out CBD stone. Will keep patient NPO. IV opioids p.r.n. for analgesia. #. Wcd-xzscozj-wtpvrsqoe diabetes mellitus: Initiating Accu-Cheks with sliding scale insulin every 6 hours #. Hypomagnesemia due to GI losses: Repleted #. Acute lactic acidosis in the setting of metformin use #. Hypertension: Hold antihypertensives in the setting of sepsis #. Mixed hyperlipidemia: Hold statin #. Mood disorder: Continue home mood stabilizers once able to take p.o. Med rec pending DVT prophylaxis: SCDs Full code. Discussed with prateek at bedside Admit as inpatient and will require two night minimum hospital stay for evaluation management of calculous cholecystitis with need for IV antibiotics (as above), which is not possible in a lesser acute setting. Quality Stroke Does the patient have a stroke diagnosis?: No VTE Prior VTE?: No VTE Risk Level:: Medical - moderate - high VTE Device Contraindication: N/A - Device Ordered VTE Drug Contraindication: Treatment Not Indicated
[2025-02-27 05:41] LABS: Hematocrit 36.0 % (37.0-47.0); Hemoglobin 12.6 g/dl (12.0-16.0); Mean Corpuscular HGB Conc 35.0 g/dl (31.0-35.0); Mean Corpuscular Hemoglobin 28.9 pg (27.0-33.0); Mean Corpuscular Volume 82.6 fL (80.0-98.0); NRBC Abs Auto 0.000 X10*3/uL (0.0-0.012); NRBC Pct Auto 0.0 /100WBC (0.0-0.2); Platelet Count 188 X10*3/uL (160-400); Red Blood Count 4.36 X10*6/uL (4.20-5.50); White Blood Count 18.0 X10*3/uL (4.8-10.8)
[2025-02-27 06:01] LABS: Alanine Aminotransferase 515 U/L (0-31); Albumin Level 3.6 g/dL (3.5-5.0); Alkaline Phosphatase 132 U/L (39-117); Anion Gap 15 (12-20); Aspartate Amino Transferase 422 U/L (5-31); Blood Urea Nitrogen 14 mg/dL (9-16); Calcium 8.6 mg/dL (8.4-10.2); Carbon Dioxide 20 mmol/L (22-29); Chloride 107 mmol/L (96-108); Creatinine Clr Calc Pharmacy 32.3; Estimated Glomerular Filt Rate 49; Potassium 3.7 mmol/L (3.3-5.1); Sodium 138 mmol/L (135-145); Total Protein 6.5 g/dL (6.5-8.0)
[2025-02-27 06:03] LABS: Atypical Lymph Absolute Manual 0.2 x10*3/uL; Atypical Lymphs Percent Manual 1 % (0-6); Band Neutrophils Percent 6 % (3-5); Basophils Abs Manual 0.2 X10*3/uL (0.0-0.2); Basophils Percent Manual 1 % (0-2); Lymphocytes Absolute Manual 2.0 X10*3/uL (1.2-4.9); Lymphocytes Percent Manual 11 % (20-40); Metamyelocytes Absolute 0.4 X10*3/uL; Metamyelocytes Percent 2 %; Monocytes Absolute Manual 1.4 X10*3/uL (0.1-1.2); Monocytes Percent Manual 8 % (2-11); Myelocytes Absolute 0.2 X10*/uL; Myelocytes Percent 1 %; Neutrophils Absolute Manual 13.7 X10*3/uL (2.0-8.3); Neutrophils Percent Manual 70 % (45-73); RBC Morphology NOTED
[2025-02-27 06:04] LABS: Large Platelet PRESENT; Ovalocytes 2+ (15-30) /OIF; Schistocytes 1+ (0-2) /OIF; Spherocytes 2+ (3-5) /OIF
[2025-02-27 06:05] LABS: Toxic Granulation PRESENT; Toxic Vacuolation PRESENT
[2025-02-27 06:50] LABS: Glucose, Whole Blood 144 mg/dL (60-115)
--- NOTE | 2025-02-27 07:10 | PC.NURSE ---
Pt helped on and off bedpan. Bed changed and pt cleaned up. Family at bedside. Callbell in reach
[2025-02-27] MEDS: 0.9 % Sodium Chloride Flush 3 ML SYRINGE IVFLUSH (07:17)
--- NOTE | 2025-02-27 07:18 | PC.NURSE ---
This RN assumed care of patient @ 0700. Family at bedside. PAtient [place] speaking only, family helps with translation. IV 22G in left wrist. Current running ABX. O2 2 L NC 97% No SOB/WOB. Patient c/o 10/10 pain in abdomen. PAtient able to use bed colón, yellow urine noted. VSS and up to date.
--- NOTE | 2025-02-27 07:41 | P.PNGS_ITS ---
Subjective Subjective Date of Service: 02/27/25 <Lu Elder PA-C - Last Filed: 02/27/25 07:50> 02/27/25 <Hai Adrian MD - Last Filed: 02/27/25 12:08> Interval history: Family at bedside. Patient continues to c/o abdominal pain. <TOMAS Koenig Last Filed: 02/27/25 07:50> Physical Exam 2 Vital Signs: Vital Signs: Last Vital Signs Temp 98.8 F 02/26/25 22:42 Pulse 67 02/27/25 03:26 Resp 20 02/27/25 07:25 BP 115/49 L 02/27/25 03:26 Pulse Ox 95 02/27/25 03:26 O2 Del Method Nasal Cannula 02/27/25 03:26 O2 Flow Rate 2 02/27/25 03:26 BMI result Body Mass Index 23.2 <TOMAS Koenig Last Filed: 02/27/25 07:50> Const: Other: uncomfortable appearing <Lu Elder PA-C - Last Filed: 02/27/25 07:50> General: alert <TOMAS Koenig Last Filed: 02/27/25 07:50> Resp: Effort & Inspection: normal respiratory effort <TOMAS Koenig Last Filed: 02/27/25 07:50> GI: Inspection: Yes normal to inspection and No distended <Lu Elder PA-C - Last Filed: 02/27/25 07:50> Palpation (GI): Soft to palpation, Tenderness to palpation present (GI) in the RUQ; Dempsey's sign negative and no guarding <Lu Elder PA-C - Last Filed: 02/27/25 07:50> Percussion: Yes normal to percussion <TOMAS Koenig Last Filed: 02/27/25 07:50> Skin: General skin exam: no rashes or lesions noted and no jaundice < TOMAS Koenig Last Filed: 02/27/25 07:50> Neuro: General: moves all extremities <TOMAS Koenig Last Filed: 02/27/25 07:50> Objective Data Active Medications Acetaminophen (Acetaminophen 325 Mg Tablet) 650 mg PO Q6H PRN PRN Reason: Pain, Mild 1-3,fever,headache Calcium Carbonate (Calcium Carbonate 750 Mg Tab.Chew) 750 mg PO Q4H PRN PRN Reason: Heartburn Dextrose (Dextrose 50 % 25 Gm/50 Ml Syringe) 25 gm IVPUSH Q15M PRN; Protocol PRN Reason: per Hypoglycemia Standing Ord. Glucose (Glucose Gel 15 Gm Gel..Gram.) 15 gm PO Q15M PRN; Protocol PRN Reason: per Hypoglycemia Standing Ord. Piperacillin Sod/Tazobactam (Sod 3.375 gm/ Sodium Chloride) 50 mls @ 100 mls/hr IV Q6H [facility] Last Admin: 02/27/25 07:17 Dose: 100 mls/hr Documented By: MICHAELLE Insulin Human Lispro (Insulin Lispro 100 Unit/Ml 3 Ml Vial) 0 unit SUBCUT Q6H [facility]; Protocol Last Admin: 02/27/25 06:50 Dose: Not Given Documented By: PEDRO Non-Admin Reason: No Insulin Coverage Magnesium Hydroxide (Milk Of Magnesia 30 Ml Oral.Susp) 30 ml PO DAILY PRN PRN Reason: Constipation Melatonin (Melatonin 3 Mg Tablet) 6 mg PO BEDTIME PRN PRN Reason: Insomnia Morphine Sulfate (Morphine Sulfate 4 Mg/Ml Cartridge) 4 mg IVPUSH Q4H PRN; Protocol PRN Reason: Pain, Severe (Pain Scale 7-10) Last Admin: 02/27/25 07:25 Dose: 4 mg Documented By: MICHAELLE Ondansetron HCl (Ondansetron Hcl 4 Mg/2 Ml Vial) 4 mg IVPUSH Q8H PRN PRN Reason: Nausea and Vomiting Sodium Chloride (0.9 % Sodium Chloride Flush 3 Ml Syringe) [facility] Last Admin: 02/27/25 07:17 Dose: 3 ml Documented By: MICHAELLE <Lu Elder PA-C - Last Filed: 02/27/25 07:50> Labs CBC & Chem 7: 02/27/25 04:53 02/27/25 04:53 <uL Elder PA-C - Last Filed: 02/27/25 07:50> Labs: Laboratory Results - last 24 hr 02/26/25 02/26/25 02/26/25 19:42 20:09 22:15 MCV 82.6 MCH 28.8 MCHC 34.9 RDW 13.9 Plt Count 199 MPV 11.8 Immature Gran % (Auto) 0.3 Neut % (Auto) 88.4 H Lymph % (Auto) 6.4 L [place] % (Auto) 4.4 Eos % (Auto) 0.2 Baso % (Auto) 0.3 Lymph # (Auto) 0.8 L [place] # (Auto) 0.5 Eos # (Auto) 0.0 Baso # (Auto) 0.0 Abs Immat Gran (auto) 0.04 H Absolute Neuts (auto) 10.4 H Absolute Nucleated RBC 0.000 Nucleated RBC % (auto) 0.0 Neutrophils % (Manual) Band Neutrophils % Lymphocytes % (Manual) Atypical Lymphs % (Man) Monocytes % (Manual) Basophils % (Manual) Metamyelocytes % Myelocytes % Abs Neuts (Manual) Lymphocytes # (Manual) Atyp Lymphs # (Manual) Monocytes # (Manual) Basophils # (Manual) Metamyelocytes # Myelocytes # Toxic Granulation Toxic Vacuolation Platelet Estimate Large Platelets Plt Morphology Comment RBC Morphology Spherocytes Ovalocytes Schistocytes Anion Gap 17 Estim Creat Clear Calc 32.3 Estimated GFR 49 POC Glucose 170 H Random Glucose 153 H Lactic Acid 2.7 H* Lactic Acid F/U @ 2Hr Lactic Acid F/U @ 4Hr Calcium 9.4 Magnesium 1.5 L Total Bilirubin 2.1 H AST 785 H ALT 593 H Alkaline Phosphatase 152 H Total Protein 7.1 Albumin 4.1 Urine Color Yellow Urine Appearance Clear Urine pH 5.5 Ur Specific [place] 1.010 Urine Protein Negative Urine Glucose (UA) Negative Urine Ketones Negative Urine Blood Negative Urine Nitrite Negative Ur Leukocyte Esterase Negative Influenza Type A (PCR) NEGATIVE Influenza Type B (PCR) NEGATIVE RSV RNA Qual (PCR) NEGATIVE SARS-CoV-2 RNA (RT-PCR) NEGATIVE 02/27/25 02/27/25 02/27/25 01:03 04:53 06:47 MCV 82.6 MCH 28.9 MCHC 35.0 RDW 14.2 Plt Count 188 MPV 12.3 Immature Gran % (Auto) Cancelled Neut % (Auto) Cancelled Lymph % (Auto) Cancelled [place] % (Auto) Cancelled Eos % (Auto) Cancelled Baso % (Auto) Cancelled Lymph # (Auto) Cancelled [place] # (Auto) Cancelled Eos # (Auto) Cancelled Baso # (Auto) Cancelled Abs Immat Gran (auto) Cancelled Absolute Neuts (auto) Cancelled Absolute Nucleated RBC 0.000 Nucleated RBC % (auto) 0.0 Neutrophils % (Manual) 70 Band Neutrophils % 6 H Lymphocytes % (Manual) 11 L Atypical Lymphs % (Man) 1 Monocytes % (Manual) 8 Basophils % (Manual) 1 Metamyelocytes % 2 Myelocytes % 1 Abs Neuts (Manual) 13.7 H Lymphocytes # (Manual) 2.0 Atyp Lymphs # (Manual) 0.2 Monocytes # (Manual) 1.4 H Basophils # (Manual) 0.2 Metamyelocytes # 0.4 Myelocytes # 0.2 Toxic Granulation PRESENT Toxic Vacuolation PRESENT Platelet Estimate NORMAL Large Platelets PRESENT Plt Morphology Comment NOTED RBC Morphology NOTED Spherocytes 2+ (3-5) Ovalocytes 2+ (15-30) Schistocytes 1+ (0-2) Anion Gap 15 Estim Creat Clear Calc 32.3 Estimated GFR 49 POC Glucose 144 H Random Glucose 155 H Lactic Acid Lactic Acid F/U @ 2Hr 3.0 H* Lactic Acid F/U @ 4Hr 2.8 H* Calcium 8.6 D Magnesium Total Bilirubin 2.6 H AST 422 H ALT 515 H Alkaline Phosphatase 132 H Total Protein 6.5 Albumin 3.6 Urine Color Urine Appearance Urine pH Ur Specific [place] Urine Protein Urine Glucose (UA) Urine Ketones Urine Blood Urine Nitrite Ur Leukocyte Esterase Influenza Type A (PCR) Influenza Type B (PCR) RSV RNA Qual (PCR) SARS-CoV-2 RNA (RT-PCR) <Lu Elder PA-C - Last Filed: 02/27/25 07:50> Procedures Date of Service Date of Service: 02/27/25 <Lu Elder PA-C - Last Filed: 02/27/25 07:50> 02/27/25 <Hai Adrian MD - Last Filed: 02/27/25 12:08> Progress Note: A&P Assessment and plan (1) Acute cholecystitis due to biliary calculus: Status: Acute <Lu Elder PA-C - Last Filed: 02/27/25 07:50> Assessment and Plan: Still complains of epigastric pain Bilirubin continues to go up AST ALT are markedly elevated although were compared to yesterday 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 WBC and Bili continues to trend up. Clinical picture concerning for cholangitis. Abd tender in RUQ tender. Await MRCP today. Cont IVF, IV abx. Discussed with family proceeding with cholecystectomy if CBD clear. They are comfortable with plan. <Lu Elder PA-C - Last Filed: 02/27/25 07:50> Time Spent With Patient Time: Total time managing care of this patient today ____ minutes. <Lu Elder PA-C - Last Filed: 02/27/25 07:50> Quality Stroke Does the patient have a stroke diagnosis?: No <Lu Elder PA-C - Last Filed: 02/27/25 07:50> VTE Prior VTE?: No <Lu Elder PA-C - Last Filed: 02/27/25 07:50> VTE Risk Level:: Medical - moderate - high <Lu Elder PA-C - Last Filed: 02/27/25 07:50> VTE Device Contraindication: N/A - Device Ordered <Lu Elder PA-C - Last Filed: 02/27/25 07:50> VTE Drug Contraindication: Treatment Not Indicated <Lu Elder PA-C - Last Filed: 02/27/25 07:50>
--- NOTE | 2025-02-27 08:51 | HO.PM.IMPN ---
Subjective Subjective Date of Service: 02/27/25 Review of Systems Follow up abdominal pain Physical Exam Vital Signs: Vital Signs: Last Vital Signs Temp 97.7 F 02/27/25 07:57 Pulse 59 02/27/25 07:57 Resp 20 02/27/25 07:57 BP 111/42 L 02/27/25 07:57 Pulse Ox 93 02/27/25 07:57 O2 Del Method Nasal Cannula 02/27/25 07:57 O2 Flow Rate 1 02/27/25 07:57 BMI result Body Mass Index 23.2 Appearing in no acute distress lung sounds are clear to auscultation heart regular rate rhythm, clear S1, S2 positive bowel sounds, abdomen is soft, nontender neuro patient is alert x3, no focal deficits Objective Data Active Medications Acetaminophen (Acetaminophen 325 Mg Tablet) 650 mg PO Q6H PRN PRN Reason: Pain, Mild 1-3,fever,headache Calcium Carbonate (Calcium Carbonate 750 Mg Tab.Chew) 750 mg PO Q4H PRN PRN Reason: Heartburn Dextrose (Dextrose 50 % 25 Gm/50 Ml Syringe) 25 gm IVPUSH Q15M PRN; Protocol PRN Reason: per Hypoglycemia Standing Ord. Glucose (Glucose Gel 15 Gm Gel..Gram.) 15 gm PO Q15M PRN; Protocol PRN Reason: per Hypoglycemia Standing Ord. Piperacillin Sod/Tazobactam (Sod 3.375 gm/ Sodium Chloride) 50 mls @ 100 mls/hr IV Q6H [facility] Last Infusion: 02/27/25 08:22 Dose: Infused Documented By: MICHAELLE Insulin Human Lispro (Insulin Lispro 100 Unit/Ml 3 Ml Vial) 0 unit SUBCUT Q6H [facility]; Protocol Last Admin: 02/27/25 06:50 Dose: Not Given Documented By: PEDRO Non-Admin Reason: No Insulin Coverage Magnesium Hydroxide (Milk Of Magnesia 30 Ml Oral.Susp) 30 ml PO DAILY PRN PRN Reason: Constipation Melatonin (Melatonin 3 Mg Tablet) 6 mg PO BEDTIME PRN PRN Reason: Insomnia Morphine Sulfate (Morphine Sulfate 4 Mg/Ml Cartridge) 4 mg IVPUSH Q4H PRN; Protocol PRN Reason: Pain, Severe (Pain Scale 7-10) Last Admin: 02/27/25 07:25 Dose: 4 mg Documented By: MICHAELLE Ondansetron HCl (Ondansetron Hcl 4 Mg/2 Ml Vial) 4 mg IVPUSH Q8H PRN PRN Reason: Nausea and Vomiting Sodium Chloride (0.9 % Sodium Chloride Flush 3 Ml Syringe) 3 ml IVFLUSH QSHIFT [facility] Last Admin: 02/27/25 07:17 Dose: 3 ml Documented By: MICHAELLE Labs 02/27/25 04:53 02/27/25 04:53 Labs: Laboratory Results - last 24 hr 02/26/25 02/26/25 02/26/25 19:42 20:09 22:15 MCV 82.6 MCH 28.8 MCHC 34.9 RDW 13.9 Plt Count 199 MPV 11.8 Immature Gran % (Auto) 0.3 Neut % (Auto) 88.4 H Lymph % (Auto) 6.4 L [place] % (Auto) 4.4 Eos % (Auto) 0.2 Baso % (Auto) 0.3 Lymph # (Auto) 0.8 L [place] # (Auto) 0.5 Eos # (Auto) 0.0 Baso # (Auto) 0.0 Abs Immat Gran (auto) 0.04 H Absolute Neuts (auto) 10.4 H Absolute Nucleated RBC 0.000 Nucleated RBC % (auto) 0.0 Neutrophils % (Manual) Band Neutrophils % Lymphocytes % (Manual) Atypical Lymphs % (Man) Monocytes % (Manual) Basophils % (Manual) Metamyelocytes % Myelocytes % Abs Neuts (Manual) Lymphocytes # (Manual) Atyp Lymphs # (Manual) Monocytes # (Manual) Basophils # (Manual) Metamyelocytes # Myelocytes # Toxic Granulation Toxic Vacuolation Platelet Estimate Large Platelets Plt Morphology Comment RBC Morphology Spherocytes Ovalocytes Schistocytes Anion Gap 17 Estim Creat Clear Calc 32.3 Estimated GFR 49 POC Glucose 170 H Random Glucose 153 H Lactic Acid 2.7 H* Lactic Acid F/U @ 2Hr Lactic Acid F/U @ 4Hr Calcium 9.4 Magnesium 1.5 L Total Bilirubin 2.1 H AST 785 H ALT 593 H Alkaline Phosphatase 152 H Total Protein 7.1 Albumin 4.1 Urine Color Yellow Urine Appearance Clear Urine pH 5.5 Ur Specific [place] 1.010 Urine Protein Negative Urine Glucose (UA) Negative Urine Ketones Negative Urine Blood Negative Urine Nitrite Negative Ur Leukocyte Esterase Negative Influenza Type A (PCR) NEGATIVE Influenza Type B (PCR) NEGATIVE RSV RNA Qual (PCR) NEGATIVE SARS-CoV-2 RNA (RT-PCR) NEGATIVE 02/27/25 02/27/25 02/27/25 01:03 04:53 06:47 MCV 82.6 MCH 28.9 MCHC 35.0 RDW 14.2 Plt Count 188 MPV 12.3 Immature Gran % (Auto) Cancelled Neut % (Auto) Cancelled Lymph % (Auto) Cancelled [place] % (Auto) Cancelled Eos % (Auto) Cancelled Baso % (Auto) Cancelled Lymph # (Auto) Cancelled [place] # (Auto) Cancelled Eos # (Auto) Cancelled Baso # (Auto) Cancelled Abs Immat Gran (auto) Cancelled Absolute Neuts (auto) Cancelled Absolute Nucleated RBC 0.000 Nucleated RBC % (auto) 0.0 Neutrophils % (Manual) 70 Band Neutrophils % 6 H Lymphocytes % (Manual) 11 L Atypical Lymphs % (Man) 1 Monocytes % (Manual) 8 Basophils % (Manual) 1 Metamyelocytes % 2 Myelocytes % 1 Abs Neuts (Manual) 13.7 H Lymphocytes # (Manual) 2.0 Atyp Lymphs # (Manual) 0.2 Monocytes # (Manual) 1.4 H Basophils # (Manual) 0.2 Metamyelocytes # 0.4 Myelocytes # 0.2 Toxic Granulation PRESENT Toxic Vacuolation PRESENT Platelet Estimate NORMAL Large Platelets PRESENT Plt Morphology Comment NOTED RBC Morphology NOTED Spherocytes 2+ (3-5) Ovalocytes 2+ (15-30) Schistocytes 1+ (0-2) Anion Gap 15 Estim Creat Clear Calc 32.3 Estimated GFR 49 POC Glucose 144 H Random Glucose 155 H Lactic Acid Lactic Acid F/U @ 2Hr 3.0 H* Lactic Acid F/U @ 4Hr 2.8 H* Calcium 8.6 D Magnesium Total Bilirubin 2.6 H AST 422 H ALT 515 H Alkaline Phosphatase 132 H Total Protein 6.5 Albumin 3.6 Urine Color Urine Appearance Urine pH Ur Specific [place] Urine Protein Urine Glucose (UA) Urine Ketones Urine Blood Urine Nitrite Ur Leukocyte Esterase Influenza Type A (PCR) Influenza Type B (PCR) RSV RNA Qual (PCR) SARS-CoV-2 RNA (RT-PCR) Assessment and Plan (1) Acute cholecystitis due to biliary calculus: Status: Acute Plan 79-year-old female with pertinent history of qcy-[id number]-minjvjdoz diabetes mellitus, hypertension, mixed hyperlipidemia, mood disorder, gastroesophageal reflux disease who presents to the emergency department for evaluation of abdominal pain and vomiting. Acute calculous cholecystitis IV Zosyn. General surgery> hold on CCY d/t acute pancreatitis Noted elevated LFTs MRCP r/o CBD stone. clears IV opioids p.r.n. for analgesia. Acute gallstone Pancreatitis Lipase 962 IV fluids Pain management LFTs trending down Leukocytosis likely secondary to acute eugenia no sepsis empiric abx Transaminitis ? CBD stone follow LFTs Fht-zvmnmph-dzzxewloa diabetes mellitus Initiating Accu-Checks with sliding scale insulin every 6 hours Hypomagnesemia due to GI losses Repleted Acute lactic acidosis in the setting of metformin use Hypertension Hold antihypertensives in the setting of sepsis Mixed hyperlipidemia Hold statin Mood disorder Continue home mood stabilizers once able to take p.o. DVT prophylaxis: SCDs Full code. Discussed with prateek at bedside Quality Stroke Does the patient have a stroke diagnosis?: No VTE Prior VTE?: No VTE Risk Level:: Medical - moderate - high VTE Device Contraindication: N/A - Device Ordered VTE Drug Contraindication: Treatment Not Indicated
--- NOTE | 2025-02-27 09:49 | HO.ANESPROP2 ---
Documented by User: Margarita Nelson NP 02/28/25 10:16 HPI - Anesthesia Eval Consult details Narrative: 79 yr old female for laparoscopic cholecystectomy. On IV antibiotics for elevated lactic acid, WBCs; LFTs initially elevated, downtrending LFTs, WBCs. MRCP 02/27/25 negative for acute cholecystitis, +cholelethiasis, lipase initially 900s, downtrending 02/28/25 Family at bedside interpreting for pt: No recent illness; no chest pain/SOB; climbs stairs daily in her home, no CP/SOB. Case reviewed with LM 02/27/25. PMFSH Active Problems Active Problems: All Active Problems Elevated liver enzymes (Acute) Hypomagnesemia (Acute) Severe sepsis with acute organ dysfunction (Acute) Acute cholecystitis due to biliary calculus (Acute) Diabetes mellitus (Acute) Sinus bradycardia (Acute) Hyperkalemia (Acute) Annual physical exam (Acute) Chest pain (Acute) Palpitations (Acute) Hospital discharge follow-up (Acute) Intermittent chest pain (Acute) SOB (shortness of breath) on exertion (Acute) Gout attack (Acute) Urinary retention with incomplete bladder emptying (Acute) Weak urinary stream (Acute) Urinary retention (Acute) Sensation of pressure in bladder area (Acute) Dysuria (Acute) GERD (gastroesophageal reflux disease) (Acute) Generalized anxiety disorder (Acute) Essential (primary) hypertension (Acute) Past Medical History Medical History PAF (paroxysmal atrial fibrillation) Annual physical exam Diabetes mellitus GERD (gastroesophageal reflux disease) Generalized anxiety disorder Essential (primary) hypertension Functional capacity: independent ambulation Patient : No Family History Family History Mother No problems noted. Father Heart disease Brother Heart disease Heart valve replaced Family history of problems with anesthesia: No Surgical History Surgical History History of mandibular surgery History of dental surgery History of appendectomy History of cataract surgery History of Problems with Anesthesia: Yes Social History Social History Household Members: Family Household Members Other:: DAUGHTER Housing: House Do you presently have visiting nurse or other home services: No Alcohol intake: never Patient Tobacco Use Status: Never used Tobacco e-Cigarette/Vaping Use: Never Used Second Hand Smoke Exposure: No Advance Directives Date on File: 02/27/25 service: No Current occupational status: disabled Cognitive needs: Yes (walker) Hearing needs: No Vision needs: Yes (glasses) Meds Allergies Allergy/AdvReac Type Severity Reaction Status Date / Time aspirin Allergy Intermediate Nausea and Verified 02/26/25 19:50 Vomiting metformin Allergy Intermediate Fatigued Verified 02/26/25 19:50 lisinopril AdvReac Mild Cough Verified 02/26/25 19:50 Active Medications: Current Medications Acetaminophen (Acetaminophen 325 Mg Tablet) 650 mg PO Q6H PRN PRN Reason: Pain, Mild 1-3,fever,headache Calcium Carbonate (Calcium Carbonate 750 Mg Tab.Chew) 750 mg PO Q4H PRN PRN Reason: Heartburn Dextrose (Dextrose 50 % 25 Gm/50 Ml Syringe) 25 gm IVPUSH Q15M PRN; Protocol PRN Reason: per Hypoglycemia Standing Ord. Glucose (Glucose Gel 15 Gm Gel..Gram.) 15 gm PO Q15M PRN; Protocol PRN Reason: per Hypoglycemia Standing Ord. Piperacillin Sod/Tazobactam (Sod 3.375 gm/ Sodium Chloride) 50 mls @ 100 mls/hr IV Q6H [facility] Last Infusion: 02/27/25 08:22 Dose: Infused Insulin Human Lispro (Insulin Lispro 100 Unit/Ml 3 Ml Vial) 0 unit SUBCUT Q6H [facility]; Protocol Last Admin: 02/27/25 06:50 Dose: Not Given Magnesium Hydroxide (Milk Of Magnesia 30 Ml Oral.Susp) 30 ml PO DAILY PRN PRN Reason: Constipation Melatonin (Melatonin 3 Mg Tablet) 6 mg PO BEDTIME PRN PRN Reason: Insomnia Morphine Sulfate (Morphine Sulfate 4 Mg/Ml Cartridge) 4 mg IVPUSH Q4H PRN; Protocol PRN Reason: Pain, Severe (Pain Scale 7-10) Last Admin: 02/27/25 07:25 Dose: 4 mg Ondansetron HCl (Ondansetron Hcl 4 Mg/2 Ml Vial) 4 mg IVPUSH Q8H PRN PRN Reason: Nausea and Vomiting Sodium Chloride (0.9 % Sodium Chloride Flush 3 Ml Syringe) 3 ml IVFLUSH QSHIFT [facility] Last Admin: 02/27/25 07:17 Dose: 3 ml Home Medications ?Medication ?Instructions ?Recorded ?Confirmed ?Last Taken ?Type pantoprazole 40 mg tablet,delayed 40 mg PO DAILY@0630 02/27/25 02/27/25 02/26/25 History release Exam Exam Date and Time: EKG 02/26/25 NSR, PACs, rate 89; holter January 2025 without afib/aflutter Height,Weight and Vital Signs: Height 5 ft 2 in Weight 57.6 kg Last Vital Signs Temp 97.7 F 02/27/25 07:57 Pulse 59 02/27/25 07:57 Resp 20 02/27/25 07:57 BP 111/42 L 02/27/25 07:57 Pulse Ox 93 02/27/25 07:57 O2 Del Method Nasal Cannula 02/27/25 07:57 O2 Flow Rate 1 02/27/25 07:57 Pertinent Lab Results Pertinent Lab Results: Laboratory Tests 02/26/25 02/26/25 02/26/25 19:42 20:09 22:15 WBC 11.7 H RBC 4.93 Hgb 14.2 Hct 40.7 MCV 82.6 MCH 28.8 MCHC 34.9 RDW 13.9 Plt Count 199 MPV 11.8 Immature Gran % (Auto) 0.3 Neut % (Auto) 88.4 H Lymph % (Auto) 6.4 L [place] % (Auto) 4.4 Eos % (Auto) 0.2 Baso % (Auto) 0.3 Lymph # (Auto) 0.8 L [place] # (Auto) 0.5 Eos # (Auto) 0.0 Baso # (Auto) 0.0 Abs Immat Gran (auto) 0.04 H Absolute Neuts (auto) 10.4 H Absolute Nucleated RBC 0.000 Nucleated RBC % (auto) 0.0 Neutrophils % (Manual) Band Neutrophils % Lymphocytes % (Manual) Atypical Lymphs % (Man) Monocytes % (Manual) Basophils % (Manual) Metamyelocytes % Myelocytes % Abs Neuts (Manual) Lymphocytes # (Manual) Atyp Lymphs # (Manual) Monocytes # (Manual) Basophils # (Manual) Metamyelocytes # Myelocytes # Toxic Granulation Toxic Vacuolation Platelet Estimate Large Platelets Plt Morphology Comment RBC Morphology Spherocytes Ovalocytes Schistocytes Sodium 142 Potassium 4.2 Chloride 106 Carbon Dioxide 23 Anion Gap 17 BUN 17 H Creatinine 1.08 Estim Creat Clear Calc 32.3 Estimated GFR 49 POC Glucose 170 H Random Glucose 153 H Lactic Acid 2.7 H* Lactic Acid F/U @ 2Hr Lactic Acid F/U @ 4Hr Calcium 9.4 Magnesium 1.5 L Total Bilirubin 2.1 H AST 785 H ALT 593 H Alkaline Phosphatase 152 H Total Protein 7.1 Albumin 4.1 Urine Color Yellow Urine Appearance Clear Urine pH 5.5 Ur Specific [place] 1.010 Urine Protein Negative Urine Glucose (UA) Negative Urine Ketones Negative Urine Blood Negative Urine Nitrite Negative Ur Leukocyte Esterase Negative Influenza Type A (PCR) NEGATIVE Influenza Type B (PCR) NEGATIVE RSV RNA Qual (PCR) NEGATIVE SARS-CoV-2 RNA (RT-PCR) NEGATIVE 02/27/25 02/27/25 02/27/25 01:03 04:53 06:47 WBC 18.0 H RBC 4.36 Hgb 12.6 Hct 36.0 L MCV 82.6 MCH 28.9 MCHC 35.0 RDW 14.2 Plt Count 188 MPV 12.3 Immature Gran % (Auto) Cancelled Neut % (Auto) Cancelled Lymph % (Auto) Cancelled [place] % (Auto) Cancelled Eos % (Auto) Cancelled Baso % (Auto) Cancelled Lymph # (Auto) Cancelled [place] # (Auto) Cancelled Eos # (Auto) Cancelled Baso # (Auto) Cancelled Abs Immat Gran (auto) Cancelled Absolute Neuts (auto) Cancelled Absolute Nucleated RBC 0.000 Nucleated RBC % (auto) 0.0 Neutrophils % (Manual) 70 Band Neutrophils % 6 H Lymphocytes % (Manual) 11 L Atypical Lymphs % (Man) 1 Monocytes % (Manual) 8 Basophils % (Manual) 1 Metamyelocytes % 2 Myelocytes % 1 Abs Neuts (Manual) 13.7 H Lymphocytes # (Manual) 2.0 Atyp Lymphs # (Manual) 0.2 Monocytes # (Manual) 1.4 H Basophils # (Manual) 0.2 Metamyelocytes # 0.4 Myelocytes # 0.2 Toxic Granulation PRESENT Toxic Vacuolation PRESENT Platelet Estimate NORMAL Large Platelets PRESENT Plt Morphology Comment NOTED RBC Morphology NOTED Spherocytes 2+ (3-5) Ovalocytes 2+ (15-30) Schistocytes 1+ (0-2) Sodium 138 Potassium 3.7 Chloride 107 Carbon Dioxide 20 L Anion Gap 15 BUN 14 Creatinine 1.08 Estim Creat Clear Calc 32.3 Estimated GFR 49 POC Glucose 144 H Random Glucose 155 H Lactic Acid Lactic Acid F/U @ 2Hr 3.0 H* Lactic Acid F/U @ 4Hr 2.8 H* Calcium 8.6 D Magnesium Total Bilirubin 2.6 H AST 422 H ALT 515 H Alkaline Phosphatase 132 H Total Protein 6.5 Albumin 3.6 Urine Color Urine Appearance Urine pH Ur Specific [place] Urine Protein Urine Glucose (UA) Urine Ketones Urine Blood Urine Nitrite Ur Leukocyte Esterase Influenza Type A (PCR) Influenza Type B (PCR) RSV RNA Qual (PCR) SARS-CoV-2 RNA (RT-PCR) Airway Mallampati Class: III TM Dist: >3cm Neck ROM: Full Loose/Missing/Broken Teeth: No (left upper molar implant) Heart: RRR Lungs: clear to ausculation b/l Assessment and Plan Final Anesthetic Review Family History of Problems with Anesthesia: No History of Problems with Anesthesia: Yes Documented by User: Boyd Green MD 03/01/25 11:07 [facility] Past Medical History Medical History PAF (paroxysmal atrial fibrillation) Annual physical exam Diabetes mellitus GERD (gastroesophageal reflux disease) Generalized anxiety disorder Essential (primary) hypertension Family History Family History Mother No problems noted. Father Heart disease Brother Heart disease Heart valve replaced Surgical History Surgical History History of mandibular surgery History of dental surgery History of appendectomy History of cataract surgery Social History Social History Household Members: Family Household Members Other:: DAUGHTER Housing: House Do you presently have visiting nurse or other home services: No Alcohol intake: never Patient Tobacco Use Status: Never used Tobacco e-Cigarette/Vaping Use: Never Used Second Hand Smoke Exposure: No Advance Directives Date on File: 02/27/25 service: No Current occupational status: disabled Cognitive needs: Yes (walker) Hearing needs: No Vision needs: Yes (glasses) Meds Allergies Allergy/AdvReac Type Severity Reaction Status Date / Time aspirin Allergy Intermediate Nausea and Verified 02/26/25 19:50 Vomiting metformin Allergy Intermediate Fatigued Verified 02/26/25 19:50 lisinopril AdvReac Mild Cough Verified 02/26/25 19:50 Home Medications ?Medication ?Instructions ?Recorded ?Confirmed ?Last Taken ?Type pantoprazole 40 mg tablet,delayed 40 mg PO DAILY@0630 02/27/25 02/27/25 02/26/25 History release Exam Narrative Narrative: cholagitis Airway Other: normal orientation and cognition Assessment and Plan Assessment Anesthesia Assessment: Anesthesia Plan Discussed and Chart Reviewed Final Anesthetic Review ASA Class: III Final Preanesthetic Review: No Changes in Pt Med Stat, Meds/Allgs Chart Reviewed, Consent Obtained/Reviewed and Anes Risks/Benef Reviewed Patient Risk: High Procedure Risk: Intermediate Anesthetic Plan Anesthetic Plan: GA Disposition: Standard PACU and Inp. Admit - ICU
--- NOTE | 2025-02-27 10:11 | PHA.MEDREC ---
Addendum entered by Nasir Hennessy RPh 02/27/25 10:23: MED REC REVIEWED BY [facility] Original Note: Pharmacy Consult ? Medication Reconciliation Pharmacy has completed the medication reconciliation. Spoke with pt family @bedside and they had a packet from a recent office visit we were able to go down and confirm with our med list. Pt family states the pt no longer takes Metformin 500mg due to that med dropping the pt blood sugar too much after 2 doses; pt Dr chiu per family, pt stopped it about 3 weeks ago. Pt still uses Betamethasone cream as needed for skin irritation per the family.
--- NOTE | 2025-02-27 10:47 | PC.NURSE ---
Addendum entered by Jesús Rodrigues RN 02/27/25 10:51: Patient O2 went down to 89% RA Patient denies SOB/WOB. reapplied O2 1L NC O2 sat returned to 94% Original Note: Patient to MRI has returned, patient titrated to RA 94%. Nursing swallow test performed, patient passed.
[2025-02-27 10:53] LABS: INTERNATIONAL NORM RATIO 1.1 (0.9-1.1); Prothrombin Time 12.5 SEC (10.9-12.4)
[2025-02-27 11:06] LABS: Lipase 962 U/L (8-78)
--- NOTE | 2025-02-27 12:02 | PC.NURSE ---
stat labs were drawn in ED that was out in by md jourdan LOU. lipase elevated. patient returned back to ED to awaiting her admission. daughter aware of plan of care. md soliman by bedside. spoke to rn relief charge and text the primary er nurse that she was coming back.
--- NOTE | 2025-02-27 12:06 | PM.EVENT ---
Event Note Date of Service: 02/27/25 Event Note: MRCP reviewed - no CBD stones, no ductal dilatation There is however note of inflammatory changes surrounding the pancreas Lipase checked - markedly elevated at 900 Furthermore, the gallbladder does not seemed to be significantly inflamed on MRI Overall symptoms may be explained by acute gallstone pancreatitis We will allow pancreatitis to resolve for now We will cancel the cholecystectomy for today I discussed this with the family extensively They understand the plan well Okay to have clear liquids Time Spent With Patient Time: Total time managing care of this patient today ____ minutes.
[2025-02-27] MEDS: Lactated Ringers 1,000 ML 125 ML IVCONT (13:26)
[2025-02-27 13:35] LABS: Glucose, Whole Blood 134 mg/dL (60-115)
--- NOTE | 2025-02-27 15:29 | MHC.CM.PN ---
PT LIVES WITH SISTER IS INDEPEDENT HAD NO SERVICES HAS A RIDE HOME WHEN DCD DC HOME N/S
--- NOTE | 2025-02-27 16:07 | PM.EVENT ---
Event Note Date of Service: 02/27/25 Event Note: Seen on afternoon rounds Appears a lot more comfortable Abdomen is softer, seems less tender She is more alert as well Continue monitor lipase and LFTs Manage as gallstone pancreatitis Likely to have passed the stone Possible lap eugenia on Thursday Family updated at bedside Time Spent With Patient Time: Total time managing care of this patient today ____ minutes.
[2025-02-27 18:23] LABS: Glucose, Whole Blood 109 mg/dL (60-115)
[2025-02-27 19:42] LABS: Glucose, Whole Blood 196 mg/dL (60-115)
[2025-02-27 21:01] LABS: VBG HCO3 28 mmol/L (22-26); VBG O2 % Saturation 50.0 %
[2025-02-27 21:04] LABS: Venous Blood Gas Refer to POC result
[2025-02-27 21:37] LABS: B Type Natriuretic Peptide 676 pg/mL (<100)
--- NOTE | 2025-02-27 21:54 | PM.EVENT ---
Event Note Date of Service: 02/27/25 Event Note: Nurse reported hypoxia. Does have bilateral crackles upon examination. Chest x-ray concerning for pulmonary edema and BNP elevated. Will order 1 dose of IV Lasix. Stopped fluids. Time Spent With Patient Time: Total time managing care of this patient today ____ minutes.
[2025-02-27] MEDS: Furosemide 40 MG/4 ML VIAL IVPUSH (22:36)
[2025-02-28] MEDS: 0.9 % Sodium Chloride Flush 3 ML SYRINGE IVFLUSH ×4 (00:30→21:38)
[2025-02-28 03:04] VITALS: BP 134/62; PULSE 55; RESP 16; TEMP 36; O2SAT 93
[2025-02-28 06:56] LABS: MANUAL DIFF FLAG NO
[2025-02-28 06:59] LABS: Hematocrit 35.9 % (37.0-47.0); Hemoglobin 12.3 g/dl (12.0-16.0); Imm Gran Abs Auto 0.06 X10*3/uL (0.00-0.03); Imm Gran Pct Auto 0.5 % (0.0-0.4); Lymphocytes Absolute Auto 2.5 X10*3/uL (1.2-4.9); Mean Corpuscular HGB Conc 34.3 g/dl (31.0-35.0); Mean Corpuscular Hemoglobin 28.1 pg (27.0-33.0); Mean Corpuscular Volume 82.2 fL (80.0-98.0); NRBC Abs Auto 0.000 X10*3/uL (0.0-0.012); NRBC Pct Auto 0.0 /100WBC (0.0-0.2); Platelet Count 168 X10*3/uL (160-400); Red Blood Count 4.37 X10*6/uL (4.20-5.50); White Blood Count 13.0 X10*3/uL (4.8-10.8)
[2025-02-28 07:25] LABS: Glucose, Whole Blood 118 mg/dL (60-115)
[2025-02-28 07:27] LABS: Alanine Aminotransferase 304 U/L (0-31); Albumin Level 3.6 g/dL (3.5-5.0); Alkaline Phosphatase 115 U/L (39-117); Anion Gap 12 (12-20); Aspartate Amino Transferase 144 U/L (5-31); Blood Urea Nitrogen 16 mg/dL (9-16); Calcium 8.7 mg/dL (8.4-10.2); Carbon Dioxide 29 mmol/L (22-29); Chloride 104 mmol/L (96-108); Creatinine Clr Calc Pharmacy 28.6; Estimated Glomerular Filt Rate 42; Potassium 3.3 mmol/L (3.3-5.1); Sodium 142 mmol/L (135-145); Total Protein 6.6 g/dL (6.5-8.0)
[2025-02-28 07:30] VITALS: BP 132/61; PULSE 61; RESP 17; TEMP 36.8; O2SAT 92
[2025-02-28 07:32] LABS: Alanine Aminotransferase 302 U/L (0-31); Albumin Level 3.6 g/dL (3.5-5.0); Alkaline Phosphatase 115 U/L (39-117); Aspartate Amino Transferase 142 U/L (5-31); Total Protein 6.6 g/dL (6.5-8.0)
--- NOTE | 2025-02-28 07:40 | HO.PM.IMPN ---
Subjective Subjective Date of Service: 02/28/25 Review of Systems Follow up abdominal pain still with RUQ discomfort no nausea or vomiting Physical Exam Vital Signs: Vital Signs: Last Vital Signs Temp 98.2 F 02/28/25 07:30 Pulse 61 02/28/25 07:30 Resp 17 02/28/25 07:30 BP 132/61 02/28/25 07:30 Pulse Ox 92 02/28/25 07:30 O2 Del Method Nasal Cannula 02/28/25 07:30 O2 Flow Rate 2 02/28/25 07:30 BMI result Body Mass Index 23.2 Appearing in no acute distress lung sounds mild rales heart regular rate rhythm, clear S1, S2 positive bowel sounds, abdomen is soft, RUQ tenderness neuro patient is alert x3, no focal deficits Objective Data Active Medications Acetaminophen (Acetaminophen 325 Mg Tablet) 650 mg PO Q6H PRN PRN Reason: Pain, Mild 1-3,fever,headache Calcium Carbonate (Calcium Carbonate 750 Mg Tab.Chew) 750 mg PO Q4H PRN PRN Reason: Heartburn Dextrose (Dextrose 50 % 25 Gm/50 Ml Syringe) 25 gm IVPUSH Q15M PRN; Protocol PRN Reason: per Hypoglycemia Standing Ord. Dextrose (Dextrose 50 % 25 Gm/50 Ml Syringe) 25 gm IVPUSH Q15M PRN; Protocol PRN Reason: per Hypoglycemia Standing Ord. Glucose (Glucose Gel 15 Gm Gel..Gram.) 15 gm PO Q15M PRN; Protocol PRN Reason: per Hypoglycemia Standing Ord. Glucose (Glucose Gel 15 Gm Gel..Gram.) 15 gm PO Q15M PRN; Protocol PRN Reason: per Hypoglycemia Standing Ord. Piperacillin Sod/Tazobactam (Sod 3.375 gm/ Sodium Chloride) 50 mls @ 100 mls/hr IV Q6H [facility] Last Infusion: 02/28/25 03:18 Dose: Infused Documented By: BRANDI Insulin Human Lispro (Insulin Lispro 100 Unit/Ml 3 Ml Vial) 0 unit SUBCUT QIDACHS [facility]; Protocol Last Admin: 02/27/25 22:43 Dose: Not Given Documented By: BRANDI Non-Admin Reason: already given Magnesium Hydroxide (Milk Of Magnesia 30 Ml Oral.Susp) 30 ml PO DAILY PRN PRN Reason: Constipation Melatonin (Melatonin 3 Mg Tablet) 6 mg PO BEDTIME PRN PRN Reason: Insomnia Morphine Sulfate (Morphine Sulfate 4 Mg/Ml Cartridge) 4 mg IVPUSH Q4H PRN; Protocol PRN Reason: Pain, Severe (Pain Scale 7-10) Last Admin: 02/27/25 07:25 Dose: 4 mg Documented By: MICHAELLE Ondansetron HCl (Ondansetron Hcl 4 Mg/2 Ml Vial) 4 mg IVPUSH Q8H PRN PRN Reason: Nausea and Vomiting Sodium Chloride (0.9 % Sodium Chloride Flush 3 Ml Syringe) 3 ml IVFLUSH QSHIFT [facility] Last Admin: 02/28/25 00:30 Dose: 3 ml Documented By: BRANDI Labs 02/28/25 06:00 02/28/25 06:00 Labs: Laboratory Results - last 24 hr 02/27/25 02/27/25 02/27/25 10:30 13:29 18:20 MCV MCH MCHC RDW Plt Count MPV Immature Gran % (Auto) Neut % (Auto) Lymph % (Auto) [place] % (Auto) Eos % (Auto) Baso % (Auto) Lymph # (Auto) [place] # (Auto) Eos # (Auto) Baso # (Auto) Abs Immat Gran (auto) Absolute Neuts (auto) Absolute Nucleated RBC Nucleated RBC % (auto) PT 12.5 H INR 1.1 VBG pH VBG pCO2 VBG pO2 VBG HCO3 VBG O2 Saturation VBG Base Excess Anion Gap Estim Creat Clear Calc Estimated GFR POC Glucose 134 H 109 Random Glucose Calcium Total Bilirubin Direct Bilirubin AST ALT Alkaline Phosphatase B-Natriuretic Peptide Total Protein Albumin Lipase 962 H 02/27/25 02/27/25 02/27/25 19:38 20:51 20:57 MCV MCH MCHC RDW Plt Count MPV Immature Gran % (Auto) Neut % (Auto) Lymph % (Auto) [place] % (Auto) Eos % (Auto) Baso % (Auto) Lymph # (Auto) [place] # (Auto) Eos # (Auto) Baso # (Auto) Abs Immat Gran (auto) Absolute Neuts (auto) Absolute Nucleated RBC Nucleated RBC % (auto) PT INR VBG pH 7.39 VBG pCO2 46 VBG pO2 33 VBG HCO3 28 H VBG O2 Saturation 50.0 VBG Base Excess 2.9 Anion Gap Estim Creat Clear Calc Estimated GFR POC Glucose 196 H Random Glucose Calcium Total Bilirubin Direct Bilirubin AST ALT Alkaline Phosphatase B-Natriuretic Peptide 676 H Total Protein Albumin Lipase 02/28/25 02/28/25 02/28/25 06:00 06:00 06:00 MCV 82.2 MCH 28.1 MCHC 34.3 RDW 14.3 Plt Count 168 MPV 12.1 Immature Gran % (Auto) 0.5 H Neut % (Auto) 72.2 Lymph % (Auto) 19.5 L [place] % (Auto) 6.2 Eos % (Auto) 1.4 Baso % (Auto) 0.2 Lymph # (Auto) 2.5 [place] # (Auto) 0.8 Eos # (Auto) 0.2 Baso # (Auto) 0.0 Abs Immat Gran (auto) 0.06 H Absolute Neuts (auto) 9.4 H Absolute Nucleated RBC 0.000 Nucleated RBC % (auto) 0.0 PT INR VBG pH VBG pCO2 VBG pO2 VBG HCO3 VBG O2 Saturation VBG Base Excess Anion Gap 12 Estim Creat Clear Calc 28.6 Estimated GFR 42 POC Glucose Random Glucose 113 Calcium 8.7 Total Bilirubin 2.0 H 2.1 H Direct Bilirubin 1.3 H AST 144 H 142 H ALT 304 H Alkaline Phosphatase B-Natriuretic Peptide Total Protein Albumin Lipase 02/28/25 02/28/25 02/28/25 06:00 06:00 06:00 MCV MCH MCHC RDW Plt Count MPV Immature Gran % (Auto) Neut % (Auto) Lymph % (Auto) [place] % (Auto) Eos % (Auto) Baso % (Auto) Lymph # (Auto) [place] # (Auto) Eos # (Auto) Baso # (Auto) Abs Immat Gran (auto) Absolute Neuts (auto) Absolute Nucleated RBC Nucleated RBC % (auto) PT INR VBG pH VBG pCO2 VBG pO2 VBG HCO3 VBG O2 Saturation VBG Base Excess Anion Gap Estim Creat Clear Calc Estimated GFR POC Glucose Random Glucose Calcium Total Bilirubin Direct Bilirubin AST ALT 302 H Alkaline Phosphatase 115 115 B-Natriuretic Peptide Total Protein 6.6 6.6 Albumin 3.6 Lipase 02/28/25 02/28/25 06:00 07:13 MCV MCH MCHC RDW Plt Count MPV Immature Gran % (Auto) Neut % (Auto) Lymph % (Auto) [place] % (Auto) Eos % (Auto) Baso % (Auto) Lymph # (Auto) [place] # (Auto) Eos # (Auto) Baso # (Auto) Abs Immat Gran (auto) Absolute Neuts (auto) Absolute Nucleated RBC Nucleated RBC % (auto) PT INR VBG pH VBG pCO2 VBG pO2 VBG HCO3 VBG O2 Saturation VBG Base Excess Anion Gap Estim Creat Clear Calc Estimated GFR POC Glucose 118 H Random Glucose Calcium Total Bilirubin Direct Bilirubin AST ALT Alkaline Phosphatase B-Natriuretic Peptide Total Protein Albumin 3.6 Lipase Microbiology Microbiology Results: Microbiology 02/26/25 22:15 Blood Culture - Preliminary Blood - Venous No growth after 24 hours. 02/26/25 22:05 Blood Culture - Preliminary Blood - Venous No growth after 24 hours. Assessment and Plan (1) Acute cholecystitis due to biliary calculus: Status: Acute Plan 79-year-old female with pertinent history of [id number] diabetes mellitus, hypertension, mixed hyperlipidemia, mood disorder, gastroesophageal reflux disease who presents to the emergency department for evaluation of abdominal pain and vomiting. Acute fluid overload likely from IV fluids continue IV lasix for now monitor symptoms BNP trending down Acute calculous cholecystitis IV Zosyn. General surgery> CCY thursday Noted elevated LFTs MRCP> r/o notable CBD stone. clears IV opioids p.r.n. for analgesia. Acute gallstone Pancreatitis Lipase 962 initially Pain management LFTs trending down Leukocytosis likely secondary to acute eugenia no sepsis empiric abx Transaminitis likely CBD stone follow LFTs [id number] diabetes mellitus Initiating Accu-Checks with sliding scale insulin every 6 hours Hypomagnesemia due to GI losses Repleted Acute lactic acidosis in the setting of metformin use Hypertension Hold antihypertensives in the setting of sepsis Mixed hyperlipidemia Hold statin Mood disorder Continue home mood stabilizers once able to take p.o. DVT prophylaxis: SCDs Full code. Discussed with prateek at bedside Quality Stroke Does the patient have a stroke diagnosis?: No VTE Prior VTE?: No VTE Risk Level:: Medical - moderate - high VTE Device Contraindication: N/A - Device Ordered VTE Drug Contraindication: Treatment Not Indicated
[2025-02-28 07:42] LABS: Lipase 563 U/L (8-78)
--- NOTE | 2025-02-28 08:10 | PM.PNGS ---
Subjective Subjective Date of Service: 02/28/25 <Lu Elder PA-C - Last Filed: 02/28/25 08:15> 02/28/25 <Hai Adrian MD - Last Filed: 02/28/25 10:06> Interval history: Hypoxic overnight and required IV lasix. She denies shortness of breath currently. She reports continued upper/right sided abd pain. Denies nausea/vomiting. Feels weak. <Lu Elder PA-C - Last Filed: 02/28/25 08:15> Physical Exam Vital Signs: Vital Signs: Last Vital Signs Temp 98.2 F 02/28/25 07:30 Pulse 61 02/28/25 07:30 Resp 17 02/28/25 07:30 BP 132/61 02/28/25 07:30 Pulse Ox 92 02/28/25 07:30 O2 Del Method Nasal Cannula 02/28/25 07:30 O2 Flow Rate 2 02/28/25 07:30 BMI result Body Mass Index 23.2 <Lu Elder PA-C - Last Filed: 02/28/25 08:15> Const: General: comfortable, no acute distress and alert <Lu Elder PA-C - Last Filed: 02/28/25 08:15> Orientation/consciousness: patient oriented x3 <TOMAS Koenig Last Filed: 02/28/25 08:15> Resp: Effort & Inspection: normal respiratory effort <TOMAS Koenig Last Filed: 02/28/25 08:15> GI: Palpation (GI): Soft to palpation, Tenderness to palpation present (GI) (moderate epigastric/RUQ tenderness) and no guarding <Lu Elder PA-C - Last Filed: 02/28/25 08:15> Percussion: Yes normal to percussion <TOMAS Koenig Last Filed: 02/28/25 08:15> Skin: General skin exam: no rashes or lesions noted and no jaundice <TOMAS Koenig Last Filed: 02/28/25 08:15> Neuro: General: patient oriented x3 and moves all extremities <TOMAS Koenig Filed: 02/28/25 08:15> Objective Data Active Medications Acetaminophen (Acetaminophen 325 Mg Tablet) 650 mg PO Q6H PRN PRN Reason: Pain, Mild 1-3,fever,headache Calcium Carbonate (Calcium Carbonate 750 Mg Tab.Chew) 750 mg PO Q4H PRN PRN Reason: Heartburn Dextrose (Dextrose 50 % 25 Gm/50 Ml Syringe) 25 gm IVPUSH Q15M PRN; Protocol PRN Reason: per Hypoglycemia Standing Ord. Dextrose (Dextrose 50 % 25 Gm/50 Ml Syringe) 25 gm IVPUSH Q15M PRN; Protocol PRN Reason: per Hypoglycemia Standing Ord. Furosemide (Furosemide 40 Mg/4 Ml Vial) 40 mg IVPUSH BID@0900,1800 [facility]; Protocol Glucose (Glucose Gel 15 Gm Gel..Gram.) 15 gm PO Q15M PRN; Protocol PRN Reason: per Hypoglycemia Standing Ord. Glucose (Glucose Gel 15 Gm Gel..Gram.) 15 gm PO Q15M PRN; Protocol PRN Reason: per Hypoglycemia Standing Ord. Piperacillin Sod/Tazobactam (Sod 3.375 gm/ Sodium Chloride) 50 mls @ 100 mls/hr IV Q6H [facility] Last Infusion: 02/28/25 03:18 Dose: Infused Documented By: BRANDI Insulin Human Lispro (Insulin Lispro 100 Unit/Ml 3 Ml Vial) [facility]; Protocol Last Admin: 02/27/25 22:43 Dose: Not Given Documented By: BRANDI Non-Admin Reason: already given Magnesium Hydroxide (Milk Of Magnesia 30 Ml Oral.Susp) 30 ml PO DAILY PRN PRN Reason: Constipation Melatonin (Melatonin 3 Mg Tablet) 6 mg PO BEDTIME PRN PRN Reason: Insomnia Morphine Sulfate (Morphine Sulfate 4 Mg/Ml Cartridge) 4 mg IVPUSH Q4H PRN; Protocol PRN Reason: Pain, Severe (Pain Scale 7-10) Last Admin: 02/27/25 07:25 Dose: 4 mg Documented By: MICHAELLE Ondansetron HCl (Ondansetron Hcl 4 Mg/2 Ml Vial) 4 mg IVPUSH Q8H PRN PRN Reason: Nausea and Vomiting Sodium Chloride (0.9 % Sodium Chloride Flush 3 Ml Syringe) 3 ml IVFLUSH [facility] Last Admin: 02/28/25 00:30 Dose: 3 ml Documented By: BRANDI <Lu Elder PA-C - Last Filed: 02/28/25 08:15> Labs CBC & Chem 7: 02/28/25 06:00 02/28/25 06:00 <Lu Elder PA-C - Last Filed: 02/28/25 08:15> Labs: Laboratory Results - last 24 hr 02/27/25 02/27/25 02/27/25 10:30 13:29 18:20 MCV MCH MCHC RDW Plt Count MPV Immature Gran % (Auto) Neut % (Auto) Lymph % (Auto) [place] % (Auto) Eos % (Auto) Baso % (Auto) Lymph # (Auto) [place] # (Auto) Eos # (Auto) Baso # (Auto) Abs Immat Gran (auto) Absolute Neuts (auto) Absolute Nucleated RBC Nucleated RBC % (auto) PT 12.5 H INR 1.1 VBG pH VBG pCO2 VBG pO2 VBG HCO3 VBG O2 Saturation VBG Base Excess Anion Gap Estim Creat Clear Calc Estimated GFR POC Glucose 134 H 109 Random Glucose Calcium Total Bilirubin Direct Bilirubin AST ALT Alkaline Phosphatase B-Natriuretic Peptide Total Protein Albumin Lipase 962 H 02/27/25 02/27/25 02/27/25 19:38 20:51 20:57 MCV MCH MCHC RDW Plt Count MPV Immature Gran % (Auto) Neut % (Auto) Lymph % (Auto) [place] % (Auto) Eos % (Auto) Baso % (Auto) Lymph # (Auto) [place] # (Auto) Eos # (Auto) Baso # (Auto) Abs Immat Gran (auto) Absolute Neuts (auto) Absolute Nucleated RBC Nucleated RBC % (auto) PT INR VBG pH 7.39 VBG pCO2 46 VBG pO2 33 VBG HCO3 28 H VBG O2 Saturation 50.0 VBG Base Excess 2.9 Anion Gap Estim Creat Clear Calc Estimated GFR POC Glucose 196 H Random Glucose Calcium Total Bilirubin Direct Bilirubin AST ALT Alkaline Phosphatase B-Natriuretic Peptide 676 H Total Protein Albumin Lipase 02/28/25 02/28/25 02/28/25 06:00 06:00 06:00 MCV 82.2 MCH 28.1 MCHC 34.3 RDW 14.3 Plt Count 168 MPV 12.1 Immature Gran % (Auto) 0.5 H Neut % (Auto) 72.2 Lymph % (Auto) 19.5 L [place] % (Auto) 6.2 Eos % (Auto) 1.4 Baso % (Auto) 0.2 Lymph # (Auto) 2.5 [place] # (Auto) 0.8 Eos # (Auto) 0.2 Baso # (Auto) 0.0 Abs Immat Gran (auto) 0.06 H Absolute Neuts (auto) 9.4 H Absolute Nucleated RBC 0.000 Nucleated RBC % (auto) 0.0 PT INR VBG pH VBG pCO2 VBG pO2 VBG HCO3 VBG O2 Saturation VBG Base Excess Anion Gap 12 Estim Creat Clear Calc 28.6 Estimated GFR 42 POC Glucose Random Glucose 113 Calcium 8.7 Total Bilirubin 2.0 H 2.1 H Direct Bilirubin 1.3 H AST 144 H 142 H ALT 304 H Alkaline Phosphatase B-Natriuretic Peptide Total Protein Albumin Lipase 02/28/25 02/28/25 02/28/25 06:00 06:00 06:00 MCV MCH MCHC RDW Plt Count MPV Immature Gran % (Auto) Neut % (Auto) Lymph % (Auto) [place] % (Auto) Eos % (Auto) Baso % (Auto) Lymph # (Auto) [place] # (Auto) Eos # (Auto) Baso # (Auto) Abs Immat Gran (auto) Absolute Neuts (auto) Absolute Nucleated RBC Nucleated RBC % (auto) PT INR VBG pH VBG pCO2 VBG pO2 VBG HCO3 VBG O2 Saturation VBG Base Excess Anion Gap Estim Creat Clear Calc Estimated GFR POC Glucose Random Glucose Calcium Total Bilirubin Direct Bilirubin AST ALT 302 H Alkaline Phosphatase 115 115 B-Natriuretic Peptide Total Protein 6.6 6.6 Albumin 3.6 Lipase 02/28/25 02/28/25 06:00 07:13 MCV MCH MCHC RDW Plt Count MPV Immature Gran % (Auto) Neut % (Auto) Lymph % (Auto) [place] % (Auto) Eos % (Auto) Baso % (Auto) Lymph # (Auto) [place] # (Auto) Eos # (Auto) Baso # (Auto) Abs Immat Gran (auto) Absolute Neuts (auto) Absolute Nucleated RBC Nucleated RBC % (auto) PT INR VBG pH VBG pCO2 VBG pO2 VBG HCO3 VBG O2 Saturation VBG Base Excess Anion Gap Estim Creat Clear Calc Estimated GFR POC Glucose 118 H Random Glucose Calcium Total Bilirubin Direct Bilirubin AST ALT Alkaline Phosphatase B-Natriuretic Peptide Total Protein Albumin 3.6 Lipase 563 H <Lu Elder PA-C - Last Filed: 02/28/25 08:15> Microbiology Microbiology Results: Microbiology 02/26/25 22:15 Blood Culture - Preliminary Blood - Venous No growth after 24 hours. 02/26/25 22:05 Blood Culture - Preliminary Blood - Venous No growth after 24 hours. <Lu Elder PA-C - Last Filed: 02/28/25 08:15> Procedures Date of Service Date of Service: 02/28/25 <Lu Elder PA-C - Last Filed: 02/28/25 08:15> 02/28/25 <Hai Adrian MD - Last Filed: 02/28/25 10:06> Progress Note: A&P Assessment and plan (1) Gallstone pancreatitis: Status: Acute <Lu Elder PA-C - Last Filed: 02/28/25 08:15> Assessment and Plan: Admits to pain although much improved compared to yesterday More alert today Abdomen is soft although with tenderness Lipase much improved Bilirubin trending down Possible lap eugenia tomorrow Continue to follow LFTs and lipase Likely to have passed a gallstone through the common bile duct Family at bedside Seen and examined independently Okay to have clear liquids <Hai Adrian MD - Last Filed: 02/28/25 10:06> Assessment and Plan: Admitted with gallstone pancreatitis, likely with passed CBD stone. LFTs and lipase continue to downtrend. Overall appears more comfortable this morning, abd remains tender in epigastrium/RUQ. VSS. Tenatively on schedule for tomorrow for laparoscopic cholecystectomy, possible open if labs continue to improve, respiratory status remains stable. Patient and family at bedside comfortable with plan. Cont clear liquids for now. <TOMAS Koenig Last Filed: 02/28/25 08:15> Time Spent With Patient Time: Total time managing care of this patient today ____ minutes. <TOMAS Koenig Last Filed: 02/28/25 08:15> Quality Stroke Does the patient have a stroke diagnosis?: No <Lu Elder PA-C - Last Filed: 02/28/25 08:15> VTE Prior VTE?: No <Lu Elder PA-C - Last Filed: 02/28/25 08:15> VTE Risk Level:: Medical - moderate - high <Lu Elder PA-C - Last Filed: 02/28/25 08:15> VTE Device Contraindication: N/A - Device Ordered <Lu Elder PA-C - Last Filed: 02/28/25 08:15> VTE Drug Contraindication: Treatment Not Indicated <Lu Elder PA-C - Last Filed: 02/28/25 08:15>
[2025-02-28 08:24] LABS: Magnesium 2.2 mg/dL (1.6-2.6)
[2025-02-28] MEDS: Furosemide 40 MG/4 ML VIAL IVPUSH ×2 (08:57→17:28)
[2025-02-28 09:33] LABS: B Type Natriuretic Peptide 449 pg/mL (<100)
[2025-02-28 11:17] LABS: Glucose, Whole Blood 213 mg/dL (60-115)
--- NOTE | 2025-02-28 14:11 | PM.EVENT ---
Event Note Date of Service: 03/01/25 Event Note: Seen on afternoon rounds Continues to feel much better Still having some pain and tenderness but much improved Looks comfortable Abdomen is soft and benign Reviewed technique of laparoscopic cholecystectomy and possible open cholecystectomy with daughter and patient Explained the risks including but not limited to bleeding, infections, injury to other organs including bowel, liver, bile ducts, Understands benefits and alternatives She has given consent according to the daughter Kisha Lap cholecystectomy planned tomorrow if LFTs and bilirubin continued to improve Time Spent With Patient Time: Total time managing care of this patient today ____ minutes.
[2025-02-28 16:00] VITALS: BP 154/70; PULSE 61; RESP 16; TEMP 36.3; O2SAT 92
[2025-02-28 16:22] LABS: Glucose, Whole Blood 123 mg/dL (60-115)
[2025-02-28 19:49] VITALS: BP 143/65; PULSE 58; RESP 18; TEMP 36.4; O2SAT 92
[2025-02-28 19:55] LABS: Glucose, Whole Blood 234 mg/dL (60-115)
[2025-03-01] VITALS (13 sets, daily range): BP systolic 130–206; BP diastolic 54–85; PULSE 54–74; RESP 12–18; TEMP 36.1–36.9; O2SAT 90–99
[2025-03-01 07:54] LABS: Glucose, Whole Blood 148 mg/dL (60-115)
[2025-03-01] MEDS: 0.9 % Sodium Chloride Flush 3 ML SYRINGE IVFLUSH ×3 (07:56→22:38)
--- NOTE | 2025-03-01 07:58 | P.PNGS_ITS ---
Subjective Subjective Date of Service: 03/01/25 Interval history: No events overnight Continues to have some pain although much improved Has been more alert and comfortable according to family No nausea and vomiting No fever Physical Exam 2 Vital Signs: Vital Signs: Last Vital Signs Temp 97.7 F 03/01/25 07:41 Pulse 67 03/01/25 07:41 Resp 18 03/01/25 07:41 BP 159/71 H 03/01/25 07:41 Pulse Ox 94 03/01/25 07:41 O2 Del Method Nasal Cannula 03/01/25 07:41 O2 Flow Rate 2 03/01/25 07:41 BMI result Body Mass Index 23.2 Const: General: comfortable and no acute distress Eyes: Other: Anicteric sclerae Resp: Effort & Inspection: normal respiratory effort Cardio: Rate: regular rate GI: Other: Mild tenderness on the epigastric area and right upper quadrant Palpation (GI): Soft to palpation, not firm and no guarding Objective Data Active Medications Acetaminophen (Acetaminophen 325 Mg Tablet) 650 mg PO Q6H PRN PRN Reason: Pain, Mild 1-3,fever,headache Calcium Carbonate (Calcium Carbonate 750 Mg Tab.Chew) 750 mg PO Q4H PRN PRN Reason: Heartburn Dextrose (Dextrose 50 % 25 Gm/50 Ml Syringe) 25 gm IVPUSH Q15M PRN; Protocol PRN Reason: per Hypoglycemia Standing Ord. Furosemide (Furosemide 40 Mg/4 Ml Vial) 40 mg IVPUSH BID@0900,1800 [facility]; Protocol Last Admin: 02/28/25 17:28 Dose: 40 mg Documented By: NASIR Glucose (Glucose Gel 15 Gm Gel..Gram.) 15 gm PO Q15M PRN; Protocol PRN Reason: per Hypoglycemia Standing Ord. Piperacillin Sod/Tazobactam (Sod 3.375 gm/ Sodium Chloride) 50 mls @ 100 mls/hr IV Q6H [facility] Last Infusion: 03/01/25 02:55 Dose: Infused Documented By: CECY Insulin Human Lispro (Insulin Lispro 100 Unit/Ml 3 Ml Vial) 0 unit SUBCUT QIDACHS [facility]; Protocol Last Admin: 02/28/25 20:52 Dose: 4 unit Documented By: CECY Magnesium Hydroxide (Milk Of Magnesia 30 Ml Oral.Susp) 30 ml PO DAILY PRN PRN Reason: Constipation Melatonin (Melatonin 3 Mg Tablet) 6 mg PO BEDTIME PRN PRN Reason: Insomnia Morphine Sulfate (Morphine Sulfate 4 Mg/Ml Cartridge) 4 mg IVPUSH Q4H PRN; Protocol PRN Reason: Pain, Severe (Pain Scale 7-10) Last Admin: 02/27/25 07:25 Dose: 4 mg Documented By: MICHAELLE Ondansetron HCl (Ondansetron Hcl 4 Mg/2 Ml Vial) 4 mg IVPUSH Q8H PRN PRN Reason: Nausea and Vomiting Sodium Chloride (0.9 % Sodium Chloride Flush 3 Ml Syringe) 3 ml [facility] Last Admin: 02/28/25 21:38 Dose: 3 ml Documented By: LYSZ Labs 02/28/25 06:00 02/28/25 06:00 Labs: Laboratory Results - last 24 hr 02/28/25 02/28/25 02/28/25 06:00 07:53 11:14 POC Glucose 213 H Magnesium 2.2 B-Natriuretic Peptide 449 H 02/28/25 02/28/25 03/01/25 16:19 19:51 07:49 POC Glucose 123 H 234 H 148 H Magnesium B-Natriuretic Peptide Microbiology Microbiology Results: Microbiology 02/26/25 22:15 Blood Culture - Preliminary Blood - Venous No growth after 48 hours. 02/26/25 22:05 Blood Culture - Preliminary Blood - Venous No growth after 48 hours. Procedures Date of Service Date of Service: 03/01/25 Progress Note: A&P Assessment and plan (1) Gallstone pancreatitis: Status: Acute Assessment and Plan: Continues to improve Clinically looks well Minimal pain and tenderness Follow up LFTs and lipase pending For laparoscopic cholecystectomy, possible open today The family understands the technique of the planned procedure They are aware of the risks, benefits, and alternatives which have been reviewed extensively Time Spent With Patient Time: Total time managing care of this patient today ____ minutes. Quality Stroke Does the patient have a stroke diagnosis?: No VTE Prior VTE?: No VTE Risk Level:: Medical - moderate - high VTE Device Contraindication: N/A - Device Ordered VTE Drug Contraindication: Treatment Not Indicated
--- NOTE | 2025-03-01 09:07 | HO.PM.IMPN ---
Subjective Subjective Date of Service: 03/01/25 Review of Systems Follow up abdominal pain still with RUQ discomfort no nausea or vomiting Physical Exam Vital Signs: Vital Signs: Last Vital Signs Temp 97.7 F 03/01/25 07:41 Pulse 67 03/01/25 07:41 Resp 18 03/01/25 07:41 BP 159/71 H 03/01/25 07:41 Pulse Ox 94 03/01/25 07:41 O2 Del Method Nasal Cannula 03/01/25 07:41 O2 Flow Rate 2 03/01/25 07:41 BMI result Body Mass Index 23.2 Appearing in no acute distress lung sounds are clear to auscultation heart regular rate rhythm, clear S1, S2 positive bowel sounds, abdomen is soft, nontender neuro patient is alert x3, no focal deficits Objective Data Active Medications Acetaminophen (Acetaminophen 325 Mg Tablet) 650 mg PO Q6H PRN PRN Reason: Pain, Mild 1-3,fever,headache Calcium Carbonate (Calcium Carbonate 750 Mg Tab.Chew) 750 mg PO Q4H PRN PRN Reason: Heartburn Dextrose (Dextrose 50 % 25 Gm/50 Ml Syringe) 25 gm IVPUSH Q15M PRN; Protocol PRN Reason: per Hypoglycemia Standing Ord. Furosemide (Furosemide 40 Mg/4 Ml Vial) 40 mg IVPUSH BID@0900,1800 [facility]; Protocol Last Admin: 02/28/25 17:28 Dose: 40 mg Documented By: NASIR Glucose (Glucose Gel 15 Gm Gel..Gram.) 15 gm PO Q15M PRN; Protocol PRN Reason: per Hypoglycemia Standing Ord. Piperacillin Sod/Tazobactam (Sod 3.375 gm/ Sodium Chloride) 50 mls @ 100 mls/hr IV Q6H [facility] Last Admin: 03/01/25 07:56 Dose: 100 mls/hr Documented By: CHARLY Insulin Human Lispro (Insulin Lispro 100 Unit/Ml 3 Ml Vial) 0 unit SUBCUT QIDACHS [facility]; Protocol Last Admin: 03/01/25 07:57 Dose: Not Given Documented By: CHARLY Non-Admin Reason: No Insulin Coverage Magnesium Hydroxide (Milk Of Magnesia 30 Ml Oral.Susp) 30 ml PO DAILY PRN PRN Reason: Constipation Melatonin (Melatonin 3 Mg Tablet) 6 mg PO BEDTIME PRN PRN Reason: Insomnia Morphine Sulfate (Morphine Sulfate 4 Mg/Ml Cartridge) 4 mg IVPUSH Q4H PRN; Protocol PRN Reason: Pain, Severe (Pain Scale 7-10) Last Admin: 02/27/25 07:25 Dose: 4 mg Documented By: MICHAELLE Ondansetron HCl (Ondansetron Hcl 4 Mg/2 Ml Vial) 4 mg IVPUSH Q8H PRN PRN Reason: Nausea and Vomiting Sodium Chloride (0.9 % Sodium Chloride Flush 3 Ml Syringe) 3 ml IVFLUSH QSHIFT [facility] Last Admin: 03/01/25 07:56 Dose: 3 ml Documented By: COLBURK Labs 02/28/25 06:00 02/28/25 06:00 Labs: Laboratory Results - last 24 hr 02/28/25 02/28/25 02/28/25 07:53 11:14 16:19 POC Glucose 213 H 123 H B-Natriuretic Peptide 449 H 02/28/25 03/01/25 19:51 07:49 POC Glucose 234 H 148 H B-Natriuretic Peptide Microbiology Microbiology Results: Microbiology 02/26/25 22:15 Blood Culture - Preliminary Blood - Venous No growth after 48 hours. 02/26/25 22:05 Blood Culture - Preliminary Blood - Venous No growth after 48 hours. Assessment and Plan (1) Acute cholecystitis due to biliary calculus: Status: Acute Plan 79-year-old female with pertinent history of kfd-hottmwz-lkvubpzcd diabetes mellitus, hypertension, mixed hyperlipidemia, mood disorder, gastroesophageal reflux disease who presents to the emergency department for evaluation of abdominal pain and vomiting. Acute calculous cholecystitis IV Zosyn. Noted elevated LFTs MRCP> r/o notable CBD stone. IV opioids p.r.n. for analgesia. General surgery> CCY today Acute fluid overload. Resolved likely from IV fluids continue IV lasix for now monitor symptoms BNP trending down Acute gallstone Pancreatitis Lipase 962 initially Pain management LFTs trending down Leukocytosis likely secondary to acute eugenia no sepsis empiric abx Transaminitis likely CBD stone follow LFTs Qvc-nikaior-xvkfnekyx diabetes mellitus Initiating Accu-Checks with sliding scale insulin every 6 hours Hypomagnesemia due to GI losses Repleted Acute lactic acidosis in the setting of metformin use Hypertension Hold antihypertensives in the setting of sepsis Mixed hyperlipidemia Hold statin Mood disorder Continue home mood stabilizers once able to take p.o. DVT prophylaxis: SCDs Full code. Quality Stroke Does the patient have a stroke diagnosis?: No VTE Prior VTE?: No VTE Risk Level:: Medical - moderate - high VTE Device Contraindication: N/A - Device Ordered VTE Drug Contraindication: Treatment Not Indicated
[2025-03-01 09:12] LABS: Alanine Aminotransferase 207 U/L (0-31); Albumin Level 3.8 g/dL (3.5-5.0); Alkaline Phosphatase 129 U/L (39-117); Aspartate Amino Transferase 66 U/L (5-31); Total Protein 7.3 g/dL (6.5-8.0)
[2025-03-01 09:26] LABS: Lipase 386 U/L (8-78)
--- NOTE | 2025-03-01 10:34 | PC.NURSE ---
Patient off unit for procedure at 10:34.
--- NOTE | 2025-03-01 12:06 | W.PM.OPN ---
Operative Note Operative Note Date of Service: 03/01/25 Narrative: Preop diagnosis: Acute cholecystitis, recent gallstone pancreatitis and elevated LFTs Postop diagnosis: The same Procedure: Laparoscopic cholecystectomy Surgeon: Hai Adrian MD sociology research assistant: CARMINE Elder The patient is a 79 year female admitted because of weakness, chills, abdominal pain along with elevated lactate. She was deemed to be septic on admission 3 days ago. Her LFTs were elevated. She had signs of cholecystitis from gallstones on her initial imaging. Her lipase was also markedly elevated consistent with acute gallstone pancreatitis. Her MRI did not reveal any CBD stones. She was treated supportively with IV antibiotics until her LFTs as well as her lipase had gone down. She was then scheduled for inpatient cholecystectomy today. She understood the technique of the planned procedure as well as the risks, benefits, and alternatives. Her family was involved with the discussion. She was brought to the operating room. She was placed supine under general anesthesia via endotracheal tube. The abdomen was prepped and draped in the usual sterile fashion. A surgical time-out was done. The patient was receiving scheduled IV Zosyn. I made a short supraumbilical incision with a blade 15. This was carried down through the full-thickness of the skin and thick subcutaneous fat down to the fascia. The fascia was incised. The peritoneum was entered. Through this incision a Brasher port was introduced. Pneumoperitoneum was introduced to a pressure of 15 mm Hg. From here on the rest of the procedure was done under vision with the 10 mm 0 degree scope. With laparoscopic visualization and inserted a 12 mm port in the epigastric area below the subcostal margin. Two 5 mm ports were introduced via small incisions below the subcostal margin along the anterior axillary line and the midclavicular line. Graspers were placed through these working ports. The patient is placed in a head up and [id number] position . The gallbladder was seen. This appeared slightly erythematous and distended but soft. We are able to easily applied a grasper at the fundus to retract the gallbladder cephalad. Another retractor was applied towards the neck to retract the gallbladder laterally. The gallbladder was being retracted in a cephalad lateral fashion to put the area of the cystic duct on stretch I carefully dissected the neck of the gallbladder by peeling off the peritoneum and fat using the [place] dissector until was able to clearly see the cystic duct. We continued to dissect the cystic duct to confirm its confluence with the neck of the gallbladder. By doing so we are able to also achieve a critical view of the hepatocystic triangle. The cystic artery was seen adjacent to the cystic duct. There were no other large structures in the area. With the confluence of the neck of the gallbladder with the cystic duct confirmed, we applied clips on the cystic duct with 2 clips being applied distally. The cystic duct was transected between clips with Endo scissors. We gently dissected the cystic artery to define this. We then applied clips with 2 clips being applied distally. The cystic artery was transected between clips endo-scissors. With a retraction of the gallbladder away from the liver bed, I proceeded to then gently divide the hilum with the electrocautery hook. We incised the peritoneum of the gallbladder he had interface with the liver bed with electrocautery. The gallbladder was erythematous but soft. We proceeded with separation of the gallbladder from the liver bed along without the well-defined plane of dissection using a combination of blunt dissection and electrocautery hook all the way to the fundus until the entire gallbladder was completely from the liver bed. The gallbladder was retrieved through an endobag through the umbilical incision. I reinserted all ports and re-insufflated. I examined all 4 quadrants. There was no other pathology. There was no evidence of any bowel injury or any bile leak . There was not periods of bowel from a tear in the gallbladder wall earlier so we copiously irrigated and suctioned out the irrigant fluid. We cauterized area of oozing from the liver from the retraction. Once we confirmed good hemostasis, I desufflated through the port sites. I removed all ports under vision with the laparoscope. The umbilical port was removed last. The fascia of the umbilical incision was closed with a [id number] Polysorb 0 stitch. Skin closure was achieved on all incisions with Polysorb 4-0 subcuticular running sutures. All incisions were infiltrated with Marcaine 0.5% for postop analgesia. Steri-Strips and dressings were applied. The procedure was then completed. The patient tolerated procedure well. There were no immediate complications. Initial fin and al counts of sponges and instruments were correct. Estimated blood loss about 25 cc. The patient is extubated without difficulty and transferred to the recovery room with stable vital signs.
--- NOTE | 2025-03-01 12:57 | PC.NURSE ---
Patient returned to room from OR. Patient has 4 bandaids present with scant serosanguineous drainage present. Patient easily arousable, on 2L. Multiple family members at bedside. Bed alarm on, call maldonado in reach.
--- NOTE | 2025-03-01 13:32 | ECG_ITS ---
Test Reason : dysrhythmia Blood Pressure : */* mmHG Vent. Rate : 62 BPM Atrial Rate : 62 BPM P-R Int : 166 ms QRS Dur : 72 ms QT Int : 456 ms P-R-T Axes : 35 -51 83 degrees QTcB Int : 462 ms Normal sinus rhythm with sinus arrhythmia Possible Left atrial enlargement Left anterior fascicular block Minimal voltage criteria for LVH, may be normal variant ( R in aVL ) Septal infarct (cited on or before 01-Mar-2025) Abnormal ECG When compared with ECG of 01-Mar-2025 13:59, Questionable change in initial forces of Septal leads Referred By: Kaykay Spears Electronically Signed By: DERECK LAGUNAS
--- NOTE | 2025-03-01 15:58 | MHC.CM.PN ---
PER ROUNDS PT TO HAVE A GALL BLADDER SURGERY TODAY
--- NOTE | 2025-03-01 16:05 | PM.EVENT ---
Event Note Date of Service: 03/01/25 Event Note: Seen postop on afternoon rounds Underwent uneventful laparoscopic cholecystectomy earlier She seems to have good pain control Looks well Stable vital signs Abdomen is soft Pain management Diet as tolerated Doing well overall Possible discharge to home tomorrow Family at bedside Time Spent With Patient Time: Total time managing care of this patient today ____ minutes.
[2025-03-01 16:21] LABS: Glucose, Whole Blood 162 mg/dL (60-115)
--- NOTE | 2025-03-01 18:18 | PC.NURSE ---
13:20 - Upon further assessment from return from OR, patient had elevated BP and irregularity heard in heart sounds. Patient asymptomatic. Scar Spears notified via [facility] [place]. EKG ordered.
[2025-03-01 21:23] LABS: Glucose, Whole Blood 282 mg/dL (60-115)
[2025-03-02 03:13] VITALS: BP 154/68; PULSE 66; RESP 16; TEMP 36.3; O2SAT 93
[2025-03-02 07:08] VITALS: BP 150/70; PULSE 60; RESP 14; TEMP 36.4; O2SAT 93
--- NOTE | 2025-03-02 07:27 | PM.DS ---
DS: Providers Provider Date of Service: 03/02/25 Date of admission: 02/26/25 23:58 Date of discharge: 03/02/25 Primary care physician: Jaya Bean MD DS: Diagnosis Discharge Diagnosis (1) Acute cholecystitis due to biliary calculus: Status: Acute DS: Summary Hospital Course Hospital Course: admission hpi Chief Complaint: Abd pain, vomiting This is a 79-year-old female with pertinent history of llb-ssgglkh-sbpghlkub diabetes mellitus, hypertension, mixed hyperlipidemia, mood disorder, gastroesophageal reflux disease who presents to the emergency department for evaluation of abdominal pain and vomiting. History obtained with the help of grandson at bedside. Patient's symptoms started on the day of presentation. She started having pain in the periumbilical region which was constant, nonradiating and without any relieving factors. Also had multiple episodes of associated nausea and vomiting. Patient developed chills on the day of presentation. Endorses malaise and easy fatigability. No documented fever. No chest pain, palpitations, shortness of breath, changes in urinary or bowel habits. In the emergency department, imaging with acute cholecystitis. General surgery was consulted who requested admission to medicine team. hospital course Patient was admitte and started antibiotics for possible cholecystitis raised on CT, she subsequently had MRCP showing cholelithiasis but no evidence of cholecystitis. She underwent succesfull lap cholecystecomy 2 days later and is doing well, tolerating regular diet and will be discharge home and follow up with PCP and surgery. Of note her LFTs were markedly elevated is trending down with initial AST of 685 and now 66, ALT of 593 now 207, Tibili 2.1 now 1.2. Diabetes not meds that I see, Final diagnoses: Gallsttone pancreatitis Cholelithiasis Elevated LfTS Time Attestation Discharge Coordination Time (in mins): 35 Quality: Safe Use of Opioids Does Pt have an Active Cancer Diagnosis on the Problem List?: No Quality: Stroke Does the patient have a stroke diagnosis?: No Physical Exam Vital Signs: Vital Signs: Last Vital Signs Temp 97.5 F 03/02/25 07:08 Pulse 60 03/02/25 07:08 Resp 14 03/02/25 07:08 BP 150/70 H 03/02/25 07:08 Pulse Ox 93 03/02/25 07:08 O2 Del Method Nasal Cannula 03/02/25 07:08 O2 Flow Rate 2 03/02/25 07:08 BMI result Body Mass Index 23.2 DS: Data Data Completed and Pending Pending studies at discharge: Pending at discharge 03/01/25 11:43 Surgical [PTH] Routine Labs on day of discharge: Laboratory Results - last 24 hr 03/01/25 03/01/25 03/01/25 07:49 08:39 16:16 POC Glucose 148 H 162 H Total Bilirubin 1.2 H Direct Bilirubin 0.6 H AST 66 H ALT 207 H Alkaline Phosphatase 129 H Total Protein 7.3 Albumin 3.8 Lipase 386 H Blood Type B Positive Antibody Screen NEGATIVE 03/01/25 21:19 POC Glucose 282 H Total Bilirubin Direct Bilirubin AST ALT Alkaline Phosphatase Total Protein Albumin Lipase Blood Type Antibody Screen Preliminary micro results at discharge 02/26/25 22:15 Blood Culture - Preliminary Blood - Venous No growth after 48 hours. 02/26/25 22:05 Blood Culture - Preliminary Blood - Venous No growth after 48 hours. Discharge Plan Discharge Anticipated Discharge Date/Time: 03/02/25 07:32 Patient Disposition: Home Health Service Discharge Diagnosis: Acute gallstone pancreaitis, cholelithiasis Referrals: Hai Adrian MD [Physician, General Surgery] - 2 Weeks Jaya Bean MD [Primary Care Provider, Internal Medicine] - 1 Week Discharge Medications: New docusate sodium [Colace] 100 mg capsule 100 mg PO BID Qty: 30 0RF oxycodone 5 mg tablet 5 mg PO Q4H PRN (Reason: pain (scale score 7-10)) Qty: 26 0RF Rx Instructions: Partial Fill upon patient request. Continued fluoxetine 10 mg capsule 10 mg PO DAILY Qty: 90 1RF metoprolol succinate 25 mg tablet extended release 24 hr 25 mg PO DAILY Qty: 90 3RF pantoprazole 40 mg tablet,delayed release (DR/EC) 40 mg PO DAILY@0630 losartan 50 mg tablet 50 mg PO DAILY Qty: 90 2RF furosemide 20 mg tablet 20 mg PO DAILY Qty: 90 1RF betamethasone dipropionate 0.05 % cream 1 appl topical DAILY PRN (Reason: skin irritation) Qty: 45 0RF Held atorvastatin 40 mg tablet 40 mg PO DAILY Qty: 90 1RF Hold Instructions: Resume on 03/08/25. Discharge Orders: Discharge Order (Routine); Ordered 03/02/25 Ordered By: Oskar Sutton Diet: Diabetic diet Activity on Discharge: No heavy lifting Stand Alone Forms: Patient Portal Discharge page Print Language: [place] Citizen Activity Restrictions/Additional Instructions: If the incision area is tender, you may apply an ice pack for short intervals (No more than 20 minutes on, followed by at least 20 minutes off). Do not apply heat. Do not use creams, lotions, or topical antibiotics. These can cause infection or allergic reaction. Ok to shower 24 hours after your surgery. Remove bandaids in 2 days. You have steri strips (small white strips) covering your incision- these will fall off ~1 week. Follow up in office with Dr. Adrian in 2 weeks. ([phone]) No heavy lifting (>10-20lbs) or strenuous activity! Call Your Doctor If: -Your temperature exceeds 101.5? F -You experience excessive pain or swelling -You have an unexpected reaction to medication -You have excessive bleeding -You experience continued vomiting/nausea -Your incision begins to separate -Your incision shows signs of infection such as increased redness, swelling, excessive pain, drainage (light blood or clear fluid is normal) or heat Care Plan Goals: recovery from gallstone pancreatitis Health Concerns: pancreatititis elevated lfts Plan of Treatment: As outline above Assessment: as above
[2025-03-02 07:31] LABS: Glucose, Whole Blood 245 mg/dL (60-115)
--- NOTE | 2025-03-02 07:33 | P.PNGS_ITS ---
Subjective Subjective Date of Service: 03/02/25 <Lu Elder PA-C - Last Filed: 03/02/25 07:46> 03/02/25 <Hai Adrian MD - Last Filed: 03/02/25 07:55> Interval history: No events overnight. Patient feels well this morning, has been on IV tylenol. Unclear if she has been OOB following the surgery. Tolerated solid diet yesterday without nausea or vomiting. Has been having loose stools. Family at bedside asking about discharge. <Lu Elder PA-C - Last Filed: 03/02/25 07:46> Physical Exam 2 Vital Signs: Vital Signs: Last Vital Signs Temp 97.5 F 03/02/25 07:08 Pulse 60 03/02/25 07:08 Resp 14 03/02/25 07:08 BP 150/70 H 03/02/25 07:08 Pulse Ox 93 03/02/25 07:08 O2 Del Method Nasal Cannula 03/02/25 07:08 O2 Flow Rate 2 03/02/25 07:08 BMI result Body Mass Index 23.2 <Lu Elder PA-C - Last Filed: 03/02/25 07:46> Const: General: comfortable, no acute distress and alert <TOMAS Koenig Last Filed: 03/02/25 07:46> Resp: Effort & Inspection: normal respiratory effort <TOMAS Koenig Last Filed: 03/02/25 07:46> GI: Other: umbilical dressing saturated, remainder of dressings intact and clean abd soft, very mild incisional tenderness <TOMAS Koenig Last Filed: 03/02/25 07:46> Inspection: No distended <TOMAS Koenig Last Filed: 03/02/25 07:46> Palpation (GI): no guarding <TOMAS Koenig Last Filed: 03/02/25 07:46> Skin: General skin exam: no rashes or lesions noted and no jaundice < TOMAS Koenig Last Filed: 03/02/25 07:46> Neuro: General: moves all extremities <TOMAS Koenig Last Filed: 03/02/25 07:46> Objective Data Active Medications Calcium Carbonate (Calcium Carbonate 750 Mg Tab.Chew) 750 mg PO Q4H PRN PRN Reason: Heartburn Dextrose (Dextrose 50 % 25 Gm/50 Ml Syringe) 25 gm IVPUSH Q15M PRN; Protocol PRN Reason: per Hypoglycemia Standing Ord. Docusate Sodium (Docusate Sodium 100 Mg Capsule) 100 mg PO BID [facility] Last Admin: 03/01/25 21:44 Dose: 100 mg Documented By: TOMER Glucose (Glucose Gel 15 Gm Gel..Gram.) 15 gm PO Q15M PRN; Protocol PRN Reason: per Hypoglycemia Standing Ord. Piperacillin Sod/Tazobactam (Sod 3.375 gm/ Sodium Chloride) 50 mls @ 100 mls/hr IV Q6H [facility] Last Infusion: 03/02/25 04:20 Dose: Infused Documented By: TOMER Acetaminophen (Ofirmev) 1,000 mg in 100 mls @ 400 mls/hr IV Q6H [facility] Last Infusion: 03/02/25 03:53 Dose: Infused Documented By: TOMER Insulin Human Lispro (Insulin Lispro 100 Unit/Ml 3 Ml Vial) 0 unit SUBCUT QIDACHS [facility]; Protocol Last Admin: 03/01/25 21:44 Dose: 6 unit Documented By: TOMER Magnesium Hydroxide (Milk Of Magnesia 30 Ml Oral.Susp) 30 ml PO DAILY PRN PRN Reason: Constipation Melatonin (Melatonin 3 Mg Tablet) 6 mg PO BEDTIME PRN PRN Reason: Insomnia Morphine Sulfate (Morphine Sulfate 4 Mg/Ml Cartridge) 4 mg IVPUSH Q4H PRN; Protocol PRN Reason: Pain, Severe (Pain Scale 7-10) Last Admin: 02/27/25 07:25 Dose: 4 mg Documented By: HOTTENC Morphine Sulfate (Morphine Sulfate 4 Mg/Ml Cartridge) 3 mg IVPUSH Q3H PRN; Protocol PRN Reason: Pain, Severe (Pain Scale 7-10) Ondansetron HCl (Ondansetron Hcl 4 Mg/2 Ml Vial) 4 mg IVPUSH Q8H PRN PRN Reason: Nausea and Vomiting Oxycodone HCl (Oxycodone Hcl Immed Release 5 Mg Tablet) 5 mg PO Q4H PRN PRN Reason: Pain, Moderate(Pain Scale 4-6) Sodium Chloride (0.9 % Sodium Chloride Flush 3 Ml Syringe) 3 ml IVFLUSH [facility] Last Admin: 03/01/25 22:38 Dose: 3 ml Documented By: TOMER <Lu Elder PA-C - Last Filed: 03/02/25 07:46> Labs CBC & Chem 7: 02/28/25 06:00 02/28/25 06:00 <Lu Elder PA-C - Last Filed: 03/02/25 07:46> Labs: Laboratory Results - last 24 hr 03/01/25 03/01/25 03/01/25 07:49 08:39 16:16 POC Glucose 148 H 162 H Total Bilirubin 1.2 H Direct Bilirubin 0.6 H AST 66 H ALT 207 H Alkaline Phosphatase 129 H Total Protein 7.3 Albumin 3.8 Lipase 386 H Blood Type B Positive Antibody Screen NEGATIVE 03/01/25 03/02/25 21:19 07:10 POC Glucose 282 H 245 H Total Bilirubin Direct Bilirubin AST ALT Alkaline Phosphatase Total Protein Albumin Lipase Blood Type Antibody Screen <Lu Elder PA-C - Last Filed: 03/02/25 07:46> Procedures Date of Service Date of Service: 03/02/25 <Lu Elder PA-C - Last Filed: 03/02/25 07:46> 03/02/25 <Hai Adrian MD - Last Filed: 03/02/25 07:55> Progress Note: A&P Assessment and plan (1) Acute cholecystitis due to biliary calculus: Status: Acute <Lu Elder PA-C - Last Filed: 03/02/25 07:46> Assessment and Plan: Status post laparoscopic cholecystectomy No events overnight Good pain control Tolerating diet Looks well this morning Abdomen is soft and benign Anicteric sclerae Clinically doing very well Okay to DC home today from surgical standpoint No need for antibiotics on discharge Instructions reinforced with family at bedside Seen and examined independently <Hai Adrian MD - Last Filed: 03/02/25 07:55> (2) Gallstone pancreatitis: Status: Acute <Lu Elder PA-C - Last Filed: 03/02/25 07:46> Assessment and Plan: POD #1 s/p lap eugenia for gallstone pancreatitis, acute cholecystitis. Patient doing well post op, tolerating solid diet, pain minimal and well controlled. VSS. Wean O2. Abd soft, dressings intact. Incentive spirometry encouraged 10x/hr. OOB/increase activity today. Surgically stable for dc to home when medically cleared. Will dc ofirmev. Can dc IV abx. Family at bedside comfortable with plan. <Lu Elder PA-C - Last Filed: 03/02/25 07:46> Time Spent With Patient Time: Total time managing care of this patient today ____ minutes. <Lu Elder PA-C - Last Filed: 03/02/25 07:46> Quality Stroke Does the patient have a stroke diagnosis?: No <Lu Elder PA-C - Last Filed: 03/02/25 07:46> VTE Prior VTE?: No <Lu Elder PA-C - Last Filed: 03/02/25 07:46> VTE Risk Level:: Medical - moderate - high <Lu Elder PA-C - Last Filed: 03/02/25 07:46> VTE Device Contraindication: N/A - Device Ordered <Lu Elder PA-C - Last Filed: 03/02/25 07:46> VTE Drug Contraindication: Treatment Not Indicated <TOMAS Koenig Last Filed: 03/02/25 07:46>
--- NOTE | 2025-03-02 08:02 | HO.POSTANES ---
Post Anesthesia Evaluation Post Anesthesia Evaluation Date of Service: 03/02/25 Vital Signs: Vital Signs Temp Pulse Resp BP Pulse Ox O2 Del Method O2 Flow Rate 03/02/25 07:08 97.5 F 60 14 150/70 H 93 Nasal Cannula 2 03/02/25 03:13 97.4 F 66 16 154/68 H 93 Nasal Cannula 2 Anesthesia: General Mental Status: Awake Pain Control: Satisfactory Hydration: Adequate Anesthesia-Related Issues: No Anes. Related Issues
[2025-03-02] MEDS: 0.9 % Sodium Chloride Flush 3 ML SYRINGE IVFLUSH (08:09)
[2025-03-02 09:52] VITALS: O2SAT 92
--- NOTE | 2025-03-02 10:18 | P.F2F_ITS ---
Service Date Service Date: 03/02/25 Encounter Date of encounter: 03/02/25 Reasons for Services Signs and symptoms assessed: abdominal pain and frailty after surgery Reason for intermediate: wound care, medication management and teach disease management Homebound: Leaving the home is medically contraindicated at this time without the asist of a device and/or another person due th the listed conditions above and below. Reason homebound: pain with ambulation and weakness related to hospital stay Homebound supporting statement: Homebound due to frailty after gallbladder surgery, pain and therefore nneds the assitance of another person Certification: Based on the above findings, I certify that this patient is confined to the home and needs intermittent intermediate care, physical therapy and/or speech ther apy, or continues to need occupational therapy. The patient is under my care, and I have initiated the establishment of the plan of care. The patient will be followed by a physician who will periodically review the plan of care. Time Spent With Patient Time: Total time managing care of this patient today ____ minutes.
[2025-03-02 10:47] VITALS: BP 161/72; PULSE 63; RESP 16; TEMP 36.9; O2SAT 94
[2025-03-02 11:18] LABS: Glucose, Whole Blood 343 mg/dL (60-115)
--- NOTE | 2025-03-02 12:33 | MHC.CM.PN ---
PT WILL DC HOME TODAY WITH [facility] FOR [facility] TO TRANSPORT
== END 2025-03-02 12:26 | disposition home health service (06) | DRG 418 ==
LOC: HO.ED 02-27 00:04 → HO.EDOVER 02-27 00:14 → HO.S3 02-27 13:51
PROVIDERS: Nurse Practitioner Acute Care; Physician Assistant Surgical; Surgery; Admitting Provider Student in an Organized Health Care Education/Training Program; Emergency Provider Emergency Medicine; PCP Internal Medicine; Visit Provider Internal Medicine
PROC: 0FT44ZZ Resection of Gallbladder, Percutaneous Endoscopic Approach (ICD-10-PCS; CPT 47562; principal; 2025-03-01 11:30)
DX: K85.10 Biliary acute pancreatitis without necrosis or infection (principal); E87.21 Acute metabolic acidosis; K80.62 Calculus of gallbladder and bile duct with acute cholecystitis without obstruction; I10 Essential (primary) hypertension; E83.42 Hypomagnesemia; E78.2 Mixed hyperlipidemia; E87.70 Fluid overload, unspecified; F39 Unspecified mood [affective] disorder; Z20.822 Contact with and (suspected) exposure to COVID-19; Z79.84 Long term (current) use of oral hypoglycemic drugs; Z79.899 Other long term (current) drug therapy
CPT/HCPCS: 36415; 71045; 74177; 74181; 80053; 80076; 81003; 82803; 82947; 83605; 83690; 83735; 83880; 85007; 85025; 85027; 85610; 86850; 86900; 86901; 87040; 87637; 88304; 93005; 99285; J0131; J0696; J1100; J1836; J1938; J2003; J2270; J2405; J2543; J2704; J2795; J3010; J3475; J7120; Q9967

== ENCOUNTER → 2025-02-26 19:48 | Outpatient (BNV) | payer OTHER, SELFPAY | PROVIDERS: Admitting Provider Student in an Organized Health Care Education/Training Program; Emergency Provider Emergency Medicine; PCP Internal Medicine; Visit Provider Internal Medicine | DX: I49.1 Atrial premature depolarization (principal); I44.4 Left anterior fascicular block; I51.7 Cardiomegaly | CPT/HCPCS: 93010 ==

== ENCOUNTER → 2025-02-26 21:10 | Outpatient (BNV) | payer MEDICARE, SELFPAY | PROVIDERS: Emergency Provider Emergency Medicine; PCP Internal Medicine; Visit Provider Specialist | DX: K80.00 Calculus of gallbladder with acute cholecystitis without obstruction (principal) | CPT/HCPCS: 74177 ==

== ENCOUNTER 2025-02-26 23:58 | Outpatient (BNV) | payer OTHER, SELFPAY | END 2025-03-01 13:32 | PROVIDERS: Admitting Provider Student in an Organized Health Care Education/Training Program; Emergency Provider Emergency Medicine; PCP Internal Medicine; Visit Provider Internal Medicine | DX: I44.7 Left bundle-branch block, unspecified (principal); I49.9 Cardiac arrhythmia, unspecified; I25.2 Old myocardial infarction | CPT/HCPCS: 93010 ==

== ENCOUNTER 2025-02-26 23:58 | Outpatient (BNV) | payer MEDICARE, SELFPAY | END 2025-02-27 07:07 | PROVIDERS: Admitting Provider Student in an Organized Health Care Education/Training Program; Emergency Provider Emergency Medicine; PCP Internal Medicine; Visit Provider Radiology Diagnostic Radiology | DX: K80.20 Calculus of gallbladder without cholecystitis without obstruction (principal); K76.0 Fatty (change of) liver, not elsewhere classified; R06.00 Dyspnea, unspecified; R09.02 Hypoxemia | CPT/HCPCS: 71045; 74181 ==

== ENCOUNTER → 2025-02-26 23:58 | Outpatient (BNV) | payer MEDICARE, SELFPAY | PROVIDERS: Admitting Provider Student in an Organized Health Care Education/Training Program; Emergency Provider Emergency Medicine; PCP Internal Medicine; Visit Provider Student in an Organized Health Care Education/Training Program | DX: K80.00 Calculus of gallbladder with acute cholecystitis without obstruction (principal) | CPT/HCPCS: 99222; 99499 ==

== ENCOUNTER → 2025-02-26 23:58 | Outpatient (BNV) | payer MEDICARE, SELFPAY | PROVIDERS: Admitting Provider Student in an Organized Health Care Education/Training Program; Emergency Provider Emergency Medicine; PCP Internal Medicine; Visit Provider Surgery | DX: K80.00 Calculus of gallbladder with acute cholecystitis without obstruction (principal); K85.10 Biliary acute pancreatitis without necrosis or infection | CPT/HCPCS: 99222; 99232; 99499 ==

== ENCOUNTER 2025-03-09 12:59 | Outpatient (REF) | payer OTHER, SELFPAY ==
--- NOTE | ~2025-03-09 | XR_ITS ---
EXAMINATION: XR KNEE, LEFT CLINICAL INFORMATION: M25.562 - Pain in left knee COMPARISON: None available. TECHNIQUE: Three views of the left knee. FINDINGS: There is no fracture, dislocation, or suspicious bone lesion. There is normal alignment. There is minimal medial compartment joint space narrowing. Lateral and patellofemoral compartments are preserved. There is no abnormal patellar tilt. There is no evidence of joint effusion. The soft tissues appear normal. XR/XR knee LT 3V IMPRESSION: No acute findings of the left knee. There is minimal medial compartment osteoarthrosis. Electronically signed by: Noé Jimenez MD 03/09/2025 02:57 PM EDT
[2025-03-09 14:53] LABS: Hematocrit 44.6 % (37.0-47.0); Hemoglobin 14.6 g/dl (12.0-16.0); Mean Corpuscular HGB Conc 32.7 g/dl (31.0-35.0); Mean Corpuscular Hemoglobin 27.9 pg (27.0-33.0); Mean Corpuscular Volume 85.3 fL (80.0-98.0); NRBC Abs Auto 0.000 X10*3/uL (0.0-0.012); NRBC Pct Auto 0.0 /100WBC (0.0-0.2); Platelet Count 362 X10*3/uL (160-400); Red Blood Count 5.23 X10*6/uL (4.20-5.50); White Blood Count 13.1 X10*3/uL (4.8-10.8)
[2025-03-09 15:16] LABS: Alanine Aminotransferase 62 U/L (0-31); Albumin Level 4.3 g/dL (3.5-5.0); Alkaline Phosphatase 125 U/L (39-117); Anion Gap 16 (12-20); Aspartate Amino Transferase 37 U/L (5-31); Blood Urea Nitrogen 17 mg/dL (9-16); Calcium 10.1 mg/dL (8.4-10.2); Carbon Dioxide 26 mmol/L (22-29); Chloride 103 mmol/L (96-108); Estimated Glomerular Filt Rate 51; Lipase 87 U/L (8-78); Potassium 4.5 mmol/L (3.3-5.1); Sodium 140 mmol/L (135-145); Total Protein 8.1 g/dL (6.5-8.0)
== END 2025-03-09 13:00 | disposition home or self-care (01) ==
LOC: HO.XRAY 12:59
PROVIDERS: PCP Internal Medicine; Visit Provider Physician Assistant
DX: Z09 Encounter for follow-up examination after completed treatment for conditions other than malignant neoplasm (principal); M25.562 Pain in left knee; I80.02 Phlebitis and thrombophlebitis of superficial vessels of left lower extremity; K85.10 Biliary acute pancreatitis without necrosis or infection; Z90.49 Acquired absence of other specified parts of digestive tract
CPT/HCPCS: 36415; 73562; 80053; 83690; 85027; 99212

== ENCOUNTER 2025-03-09 12:59 | Outpatient (AMB) | payer OTHER, SELFPAY ==
--- NOTE | 2025-03-09 13:04 | A.OFFPC_ITS ---
Vital Signs 3 03/09/25 13:06 Weight 116 lb BP 124/58 L Blood Pressure Location Lt brachial Position Sitting Pulse 64 Pulse Source Pulse Oximeter Temp 98.3 F Temp Source Temporal Artery Scan Pulse Oximetry (%) 98 Oxygen Delivery Method Room Air Intake Visit Reasons: [facility] 03/02 abd pain Mdm Developer Required: No Accompanied by: Daughter Allergies aspirin Allergy (Intermediate, Verified 03/09/25 13:15) Nausea and Vomiting metformin Allergy (Intermediate, Verified 03/09/25 13:15) Fatigued lisinopril Adverse Reaction (Mild, Verified 03/09/25 13:15) Cough Medication List - Last Reconciled 03/09/25 by Fausto Palm PA-C atorvastatin 40 mg PO DAILY Held on 03/02/25. Instructions: Resume on 03/08/25. betamethasone dipropionate 0.05% 1 appl topical DAILY PRN blood sugar diagnostic (FreeStyle Precision Ravi Strips) As directed- daily blood-glucose meter (FreeStyle Precision Ravi Meter) As directed- daily docusate sodium (Colace) 100 mg PO BID fluoxetine 10 mg PO DAILY furosemide 20 mg PO DAILY glipizide 2.5 mg PO BID lancets (FreeStyle Lancets) As directed- daily losartan 50 mg PO DAILY metoprolol succinate ER 25 mg PO DAILY oxycodone 5 mg PO Q4H PRN pantoprazole 40 mg PO DAILY@0630 Tobacco use date assessed: 02/09/25 Fall risk assessment: No Falls in past year Dental Screening Dental Screen Date: 12/15/24 Did you have a dental visit in the last 12 months?: No Did you have a dental problem in the last 6 months where you did not have access to dental care?: No Was dental information given to patient?: No HPI [facility] 03/02 abd pain 2 HPI0 Details Patient is an 79-year-old female here today for hospital discharge follow-up. This is my 1st time meeting this 79-year-old female with a past medical history significant for GERD, diabetes, gout and hypertension.. She was admitted to the hospital February 27 for acute abdominal pain. CT of abdomen showing possible cholecystitis. Patient underwent an MRCP showing cholelithiasis but no evidence of cholecystitis. Patient then subsequently underwent a successful lap cholecystectomy. Currently living at home and has her daughter helping her with activities of daily living as she is an elderly woman that needs help. Her daughter needs FMLA paperwork filled out to justify her being out of work over the next few months to help Chaitanya recover from surgery Onset 03/02/25 [place] [facility] [place] 2 TCM Information0 Date of Discharge 03/02/25 Discharged From [facility] Medical History PAF (paroxysmal atrial fibrillation) Annual physical exam Diabetes mellitus GERD (gastroesophageal reflux disease) Generalized anxiety disorder Essential (primary) hypertension Surgical History History of mandibular surgery History of dental surgery History of appendectomy History of cataract surgery Family History Mother No problems noted. Father Heart disease Brother Heart disease Heart valve replaced Social History Household Members: Family Household Members Other:: DAUGHTER Housing: House Do you presently have visiting nurse or other home services: No Alcohol intake: never Patient Tobacco Use Status: Never used Tobacco e-Cigarette/Vaping Use: Never Used Second Hand Smoke Exposure: No Advance Directives Date on File: 02/27/25 service: No Current occupational status: disabled Cognitive needs: Yes (walker) Hearing needs: No Vision needs: Yes (glasses) Questionnaire Thrive Questionnaire Date Thrive assessed: 03/09/25 BELLA-7 AMB Questionnaire BELLA-7 Date BELLA - 7 assessed: 03/09/25 Source: Developed by Drs. Geo Barney, Breanne Aragon, Doug Aguilar and colleagues, with an educational hal from [employer]. Review of Systems Const Denies headache(s) Eyes Denies loss of vision ENT Denies vertigo, Denies dizziness, Denies headache(s) and Denies sore throat Card Denies chest pain, Denies leg edema and Denies lightheadedness Resp Denies cough, Denies hemoptysis and Denies wheezing GI Denies abdominal pain, Denies melena, Denies constipation, Denies diarrhea and Denies vomiting Denies urinary frequency, Denies dysuria and Denies urinary urgency Musc Denies arthralgias, Denies joint swelling, Denies numbness and Denies tingling Neuro Denies Abnormal speech present, Denies behavioral changes, Denies vertigo, Denies dizziness, Denies headache(s), Denies loss of vision, Denies memory loss, Denies numbness and Denies tingling Psych Denies anxiety, Denies behavioral changes, Denies depression, Denies memory loss and Denies panic attacks Chandler/Lymph Denies easy bleeding and Denies easy bruising Aller/Immun Denies wheezing Physical exam (Primary Care) Vital Signs: Last Vital Signs Temp 98.3 F 03/09/25 13:06 Pulse 64 03/09/25 13:06 BP 124/58 L 03/09/25 13:06 Pulse Ox 98 03/09/25 13:06 Oxygen Delivery Method Room Air 03/09/25 13:06 Tobacco/Smoking Status: Tobacco use Status Tobacco use date assessed 02/09/25 03/09/25 13:13 Patient Tobacco Use Status Never used Tobacco 03/09/25 13:13 e-Cigarette/Vaping Use Never Used 03/09/25 13:13 Thrive Assessment: Date of Thrive Assessment Date Thrive assessed 03/09/25 03/09/25 13:13 Const General: healthy appearing, no acute distress, alert and awake Nutritional Appearance: well nourished Orientation/consciousness: oriented to person, oriented to place and oriented to time HENMT Ears: TM's normal bilaterally General nose exam: Normal nasal mucous membranes and turbinates present Eyes Conjunctivae: conjunctivae normal Sclerae: sclerae normal Pupils: Equal, round and reactive pupils present Neck Neck: Yes no lymphadenopathy and Yes no JVD Thyroid: Thyroid normal Carotids: no bruits Resp Effort & Inspection: normal respiratory effort and not tachypneic Auscultation: no crackles, no rales, no rhonchi and no wheezes Cardio Rate: regular rate Rhythm: regular rhythm Heart sounds: no murmurs and normal S1 and S2 GI Palpation (GI): Soft to palpation, nontender, no hepatomegaly and no splenomegaly Auscultation: normal bowel sounds Skin General skin exam: no rashes or lesions noted and dry skin Neuro General: oriented to person, oriented to place and oriented to time Cranial nerves: Yes Equal, round and reactive pupils present Speech: No Abnormal speech present Gait exam (Neuro): Normal gait present Motor exam (neuro): no tremor noted Extrem Right upper extremity: full ROM Left upper extremity: full ROM Right lower extremity: full ROM; no edema Left lower extremity: full ROM; no edema Knee images: 2 1. MILDLY DILATED SUPERFICIAL VEIN NOTED IN THE AREA OUTLINED TENDER TO THE TOUCH LOCALLY Psych Mental Status: mental status grossly normal Speech and movement: Normal speech and movement present Affect: normal affect Attitude: cooperative Thought process: Normal thought process present Coding Level of Care Code Est Pt Level 4 (89023) Diagnoses Hospital discharge follow-up Z09 Acute pain of left knee M25.562 Chronicity: acute S/P cholecystectomy Z90.49 Thrombophlebitis of superficial veins of left lower extremity I80.02 Laterality: left Superficial thrombophlebitis-Involved body area: lower extremity Assessment & Plan Assessment & Plan (1) Hospital discharge follow-up: Code(s): Z09 - Encounter for follow-up examination after completed treatment for conditions other than malignant neoplasm Category: Medical Plan: As per HPI (2) Left knee pain: Code(s): M25.562 - Pain in left knee Category: Medical Qualifiers: Chronicity: acute Qualified Code(s): M25.562 - Pain in left knee Plan: The patient reports knee pain with visible veins and pain upon palpation, exacerbated by walking and relieved when the leg is kept straight while sitting. An x-ray and ultrasound of the knee have been ordered to further evaluate the cause of the pain. (3) S/P cholecystectomy: Code(s): Z90.49 - Acquired absence of other specified parts of digestive tract Category: Surgical Plan: Patient has surgical scar seems to be healing, does have visiting nurse in his checking up on patient at home. She does have small amounts of ecchymosis around some of the surgical laparoscopic scars. (4) Superficial thrombophlebitis: Code(s): I80.9 - Phlebitis and thrombophlebitis of unspecified site Category: Medical Qualifiers: Laterality: left Superficial thrombophlebitis-Involved body area: lower extremity Qualified Code(s): I80.02 - Phlebitis and thrombophlebitis of superficial vessels of left lower extremity Plan: Just superficial on the patellar your seems to be a very tender vein that patient is complaining of. Unclear if this is superficial thrombophlebitis, will send for venous ultrasound to confirm suspicions Advised on warm compresses to the area Orders: Orders 2 Complete Blood Count no Diff 03/09/25 Z90.49 - Acquired absence of other specified parts of digestive tract US venous duplex LE LT 03/09/25 I80.9 - Phlebitis and thrombophlebitis of unspecified site XR knee LT 3V 03/09/25 M25.562 - Pain in left knee Lipase 03/09/25 K85.10 - Biliary acute pancreatitis without necrosis or infection Comprehensive Met. Panel 03/09/25 Z90.49 - Acquired absence of other specified parts of digestive tract
[2025-03-09 13:06] VITALS: BP 124/58; PULSE 64; TEMP 36.8; O2SAT 98
== END 2025-03-09 13:46 | disposition home or self-care (01) ==
LOC: HO.HMCH 13:00
PROVIDERS: PCP Internal Medicine; Visit Provider Physician Assistant
DX: Z09 Encounter for follow-up examination after completed treatment for conditions other than malignant neoplasm (principal); M25.562 Pain in left knee; Z90.49 Acquired absence of other specified parts of digestive tract; I80.02 Phlebitis and thrombophlebitis of superficial vessels of left lower extremity

== ENCOUNTER → 2025-03-09 14:21 | Outpatient (BNV) | payer OTHER, SELFPAY | PROVIDERS: PCP Internal Medicine; Visit Provider Radiology Diagnostic Radiology | DX: M25.562 Pain in left knee (principal) | CPT/HCPCS: 73562 ==

== ENCOUNTER 2025-04-05 11:08 | Outpatient (AMB) | payer OTHER, SELFPAY ==
--- NOTE | 2025-04-05 11:12 | MHC.OFFVIS ---
Vital Signs 04/05/25 11:24 Weight 118 lb BP 192/90 H Blood Pressure Location Lt brachial Position Sitting Pulse 60 Intake Visit Reasons: s/p eugenia Intake Note: Patient here s/p Laparoscopic cholecystectomy. Patient c/o: no concerns. Reports incisions healing well. Surgery: 03-01-2025 Chemical Sales Representative Required: No Accompanied by: daughter Heaven Allergies aspirin Allergy (Intermediate, Verified 04/05/25 11:23) Nausea and Vomiting metformin Allergy (Intermediate, Verified 04/05/25 11:23) Fatigued lisinopril Adverse Reaction (Mild, Verified 04/05/25 11:23) Cough HPI HPI s/p eugenia: Details: [age] old female here for postop visit. She underwent laparoscopic cholecystectomy for acute cholecystitis as an inpatient last March 02, 2025. She tolerated procedure well She has been doing well postop. She has good oral intake. She denies significant complaints. [facility] Medical History PAF (paroxysmal atrial fibrillation) Annual physical exam Diabetes mellitus GERD (gastroesophageal reflux disease) Generalized anxiety disorder Essential (primary) hypertension Surgical History (Updated 04/05/25 @ 11:32 by Hai Adrian MD) Status post laparoscopic cholecystectomy Hx laparoscopic cholecystectomy (03/01/25) History of mandibular surgery History of dental surgery History of appendectomy History of cataract surgery Family History Mother No problems noted. Father Heart disease Brother Heart disease Heart valve replaced Social History Household Members: Family Household Members Other:: DAUGHTER Housing: House Do you presently have visiting nurse or other home services: No Alcohol intake: never Patient Tobacco Use Status: Never used Tobacco e-Cigarette/Vaping Use: Never Used Second Hand Smoke Exposure: No Advance Directives Date on File: 02/27/25 service: No Current occupational status: disabled Cognitive needs: Yes (walker) Hearing needs: No Vision needs: Yes (glasses) Review of Systems Const Denies chills and Denies fever(s) Card Denies chest pain at rest and Denies dyspnea Resp Denies dyspnea GI Denies abdominal pain Physical Exam Vital Signs: Last Vital Signs Pulse 60 04/05/25 11:24 BP 192/90 H 04/05/25 11:24 Const General: comfortable and no acute distress Eyes Other: Anicteric Resp Effort & Inspection: normal respiratory effort GI Other: All incisions are well healed Palpation (GI): Soft to palpation, not firm, nontender and no guarding Assessment & Plan Assessment & Plan (1) Status post laparoscopic cholecystectomy: Code(s): Z90.49 - Acquired absence of other specified parts of digestive tract Category: Surgical Plan: She is doing very well postoperatively. All incisions are well healed. She has good oral intake. She can therefore follow up on a p.r.n. basis. Her path report showed acute on chronic cholecystitis. Coding Level of Care Code Global (40916) Diagnoses Status post laparoscopic cholecystectomy Z90.49
[2025-04-05 11:24] VITALS: BP 192/90; PULSE 60
== END 2025-04-05 11:27 | disposition home or self-care (01) ==
LOC: HO.HGS 11:09
PROVIDERS: PCP Internal Medicine; Visit Provider Surgery
DX: Z90.49 Acquired absence of other specified parts of digestive tract (principal)
CPT/HCPCS: 99024

== ENCOUNTER → 2025-04-05 11:08 | Outpatient (BNVA) | payer OTHER, SELFPAY | PROVIDERS: PCP Internal Medicine; Visit Provider Surgery | DX: Z98.890 Other specified postprocedural states (principal); Z90.49 Acquired absence of other specified parts of digestive tract | CPT/HCPCS: 99212 ==

== ENCOUNTER 2025-05-10 11:28 | Outpatient (AMB) | payer OTHER, SELFPAY ==
--- NOTE | 2025-05-10 11:39 | A.OFFPC_ITS ---
Vital Signs 05/10/25 11:42 Height 5 ft 2 in Weight 115 lb 4 oz BMI 21.1 BP 132/70 Blood Pressure Location Lt brachial Position Sitting Pulse 51 Pulse Source Pulse Oximeter Temp 97.1 F Temp Source Temporal Artery Scan Pulse Oximetry (%) 97 Oxygen Delivery Method Room Air Intake Visit Reasons: memory loss/ paperwork Intake Note: Patient is here to follow up on Memory Loss and paperwork Modular Home Crew Member Required: Yes Information Interpreted: non-clinical & clinical Infectious Disease Technician: Present Accompanied by: Daughter Allergies aspirin Allergy (Intermediate, Verified 05/11/25 05:43) Nausea and Vomiting metformin Allergy (Intermediate, Verified 05/11/25 05:43) Fatigued lisinopril Adverse Reaction (Mild, Verified 05/11/25 05:43) Cough Medication List - Last Reconciled 05/11/25 by Jaya Bean MD atorvastatin 40 mg PO DAILY Held on 03/02/25. Instructions: Resume on 03/08/25. betamethasone dipropionate 0.05% 1 appl topical DAILY PRN blood sugar diagnostic (OneTouch Verio test strips) As directed- daily blood-glucose meter (OneTouch Verio Reflect Meter) As directed- daily docusate sodium (Colace) 100 mg PO BID fluoxetine 10 mg PO DAILY furosemide 20 mg PO DAILY glipizide 2.5 mg PO BID lancets As directed- daily losartan 50 mg PO DAILY metoprolol succinate ER 25 mg PO DAILY oxycodone 5 mg PO Q4H PRN pantoprazole 40 mg PO DAILY@0630 Tobacco use date assessed: 05/10/25 Fall risk assessment: No Falls in past year Last assessed Fall Risk: 05/10/25 Dental Screening Dental Screen Date: 12/15/24 HPI memory loss/ paperwork HPI Details 79-year-old female is accompanied by her daughter and son-in-law to the office. Patient would like to apply for [place] citizenship. As part of it, she has to show understanding of Indonesian an answer a question. Her family members report that due to her cognitive decline she is not able to remember fax and also has difficulty learning a new language. They would like me to fill a form stating the same. After her recent cholecystectomy patient's general health is declining. Her intake has reduced. Feels weak and tired. She spends most of her time at home in a chair or lying down. Her conversations with her family members has reduced significantly. She is compliant with other medications. [facility] Medical History (Updated 05/11/25 @ 05:46 by Jaya Bean MD) Dementia PAF (paroxysmal atrial fibrillation) Annual physical exam Diabetes mellitus GERD (gastroesophageal reflux disease) Generalized anxiety disorder Essential (primary) hypertension Surgical History Status post laparoscopic cholecystectomy Hx laparoscopic cholecystectomy (03/01/25) History of mandibular surgery History of dental surgery History of appendectomy History of cataract surgery Family History Mother No problems noted. Father Heart disease Brother Heart disease Heart valve replaced Social History Household Members: Family Household Members Other:: DAUGHTER Housing: House Do you presently have visiting nurse or other home services: No Alcohol intake: never Patient Tobacco Use Status: Never used Tobacco e-Cigarette/Vaping Use: Never Used Second Hand Smoke Exposure: No Advance Directives Date on File: 02/27/25 service: No Current occupational status: disabled Cognitive needs: Yes (walker) Hearing needs: No Vision needs: Yes (glasses) Questionnaire Thrive Questionnaire Date Thrive assessed: 05/10/25 I am a: Patient What is your living situation today?: I choose not to answer this question THRIVE Score: 0 BELLA-7 AMB Questionnaire BELLA-7 Date BELLA - 7 assessed: 03/09/25 Source: Developed by Drs. Geo Barney, Breanne Aragon, Doug Aguilar and colleagues, with an educational hal from [employer]. Physical exam (Primary Care) Vital Signs: Last Vital Signs Temp 97.1 F 05/10/25 11:42 Pulse 51 05/10/25 11:42 BP 132/70 05/10/25 11:42 Pulse Ox 97 05/10/25 11:42 Oxygen Delivery Method Room Air 05/10/25 11:42 BMI result Body Mass Index 21.1 Tobacco/Smoking Status: Tobacco use Status Tobacco use date assessed 05/10/25 05/10/25 11:50 Patient Tobacco Use Status Never used Tobacco 05/10/25 11:50 e-Cigarette/Vaping Use Never Used 05/10/25 11:50 Thrive Assessment: Date of Thrive Assessment Date Thrive assessed 05/10/25 05/10/25 11:50 Const General: healthy appearing, comfortable and no acute distress HENMT Head: Yes normal to inspection, Yes No palpable skull fracture present and Yes normocephalic Ears: hearing grossly normal bilaterally Face and sinus: Yes normal facial exam Eyes General: appearance normal, both eyes and all related structures Neck Neck: Yes normal visual inspection, Yes full ROM, Yes no lymphadenopathy and Yes no meningeal signs Chest Chest palpation & inspection: normal inspection of the chest Resp Effort & Inspection: normal respiratory effort Cardio Jugular venous distension: no JVD Palpation: normal PMI Rate: regular rate Rhythm: regular rhythm Heart sounds: S1 normal heart sound present and S2 normal heart sound present GI Inspection: Yes normal to inspection General: Yes no CVA tenderness Back/Spine/Pelvis Back: no CVA tenderness Skin General skin exam: no rashes or lesions noted Neuro Other: Patient had a blank affect. Did not communicate at all either to me or to her family members. Thru head nodding, she reported no pain symptoms. Will not engage in a conversation. General: no meningeal signs Results AMB Hemoglobin A1c AMB Hemoglobin A1c 6.8 % Last Edit by ASHVIN Johnson on 05/10/25 11:59 Results Reviewed Results Reviewed: Laboratory Last Values Hgb A1c (Clinic) 6.8 % (4.0-6.0) H 05/10/25 11:39 Coding Level of Care Code Est Pt Level 4 (55456) Complex EM visit Add On G2211 Diagnoses Dementia F03.90 Generalized anxiety disorder F41.1 Essential (primary) hypertension I10 Assessment & Plan Assessment & Plan (1) Dementia: Code(s): F03.90 - Unspecified dementia, unspecified severity, without behavioral disturbance, psychotic disturbance, mood disturbance, and anxiety Category: Medical Plan: I agree with the family. In my medical opinion, she is unable to learn a new language or retained new facts with her current medical condition. I will be filling the form out appropriately. (2) Generalized anxiety disorder: Code(s): F41.1 - Generalized anxiety disorder Category: Medical Plan: No objective evidence of anxiety. Continue medications at same dosage. (3) Essential (primary) hypertension: Code(s): I10 - Essential (primary) hypertension Category: Medical Plan: Blood pressure is stable. Continue meds at same dosage. Plan History of Present Illness - The patient is an 79-year-old female presenting with anxiety disorder and language barrier due to cognitive decline. - Anxiety disorder: The patient experiences anxiety attacks triggered by certain stimuli, which have improved with medication. - Language barrier due to cognitive decline: The patient has difficulty speaking Indonesian, attributed to cognitive decline as indicated by MRI findings. - The patient has been denied citizenship twice due to her inability to speak Indonesian, and a neurologist has noted the cognitive decline affecting language abilities. Social History Review of Systems - Neurological: Reports cognitive decline affecting language abilities. - Psychiatric: Reports anxiety attacks triggered by certain stimuli. Physical Exam General: Cooperative and healthy appearing Nutritional Appearance: Well nourished Orientation/consciousness: Patient oriented x3 Limitations: No limitations Head: Normal to inspection General: Appearance normal, both eyes and all related structures Neck: Normal visual inspection Chest: Normal palpation of entire chest wall Respiratory: N ormal respiratory effort Results Plan - Continue current anxiety medication as it has shown improvement in symptoms. - Address language barrier by considering the use of an oceanography professor for future visits. Discussion Notes During the visit, we discussed the patient's anxiety disorder and the improvement noted with current medication. We also addressed the language barrier due to cognitive decline and the need for an oceanography professor in future visits to facilitate communication and ensure comprehensive care. Patient Instructions - Continue taking anxiety medication as prescribed. - Consider using an oceanography professor for future medical appointments to improve communication. Orders: Orders AMB Hemoglobin A1c 05/10/25 E11.9 - Type 2 diabetes mellitus without complications, Z13.9 - Encounter for screening, unspecified
[2025-05-10 11:42] VITALS: BP 132/70; PULSE 51; TEMP 36.2; O2SAT 97; BMI 21.1
== END 2025-05-10 16:09 | disposition home or self-care (01) ==
LOC: HO.HMCH 11:29
PROVIDERS: PCP Internal Medicine; Visit Provider Internal Medicine
DX: F03.90 Unspecified dementia, unspecified severity, without behavioral disturbance, psychotic disturbance, mood disturbance, and anxiety (principal); F41.1 Generalized anxiety disorder; I10 Essential (primary) hypertension

== ENCOUNTER → 2025-05-10 11:28 | Outpatient (BNVA) | payer OTHER, SELFPAY | PROVIDERS: PCP Internal Medicine; Visit Provider Internal Medicine | DX: F41.1 Generalized anxiety disorder (principal); F03.90 Unspecified dementia, unspecified severity, without behavioral disturbance, psychotic disturbance, mood disturbance, and anxiety; I10 Essential (primary) hypertension; E11.9 Type 2 diabetes mellitus without complications | CPT/HCPCS: 83036; 99212 ==

== ENCOUNTER 2025-05-15 15:22 | Outpatient (AMB) | payer MEDICARE, SELFPAY ==
[2025-05-15 15:29] VITALS: BP 150/72; PULSE 53
--- NOTE | 2025-05-15 15:29 | MHC.OFFVIS ---
Vital Signs 05/15/25 15:29 Height 5 ft 2 in BP 150/72 H Blood Pressure Location Lt brachial Position Sitting Pulse 53 Pulse Source Monitor Intake Visit Reasons: 4 Month Follow Up Intake Note: 4 mth f/up- pt has been getting chest tightness during the night like 3x a week Supervisor Insecticide Required: Yes Supervisor Insecticide Services: Supervisor Insecticide Offered & Declined Supervisor Insecticide Name: daughter Accompanied by: Daughter Allergies aspirin Allergy (Intermediate, Verified 05/11/25 05:43) Nausea and Vomiting metformin Allergy (Intermediate, Verified 05/11/25 05:43) Fatigued lisinopril Adverse Reaction (Mild, Verified 05/11/25 05:43) Cough Medication List - Last Reconciled 05/16/25 by Livan Haywood MD atorvastatin 40 mg PO DAILY Held on 03/02/25. Instructions: Resume on 03/08/25. betamethasone dipropionate 0.05% 1 appl topical DAILY PRN blood sugar diagnostic (AMTTouch Verio test strips) As directed- daily blood-glucose meter (AMTTouch Verio Reflect Meter) As directed- daily docusate sodium (Colace) 100 mg PO BID fluoxetine 10 mg PO DAILY furosemide 20 mg PO DAILY glipizide 2.5 mg PO BID lancets As directed- daily losartan 50 mg PO DAILY metoprolol succinate ER 25 mg PO DAILY oxycodone 5 mg PO Q4H PRN pantoprazole 40 mg PO DAILY@0630 HPI Comments Details: Pleasant 79-year-old female who is here for palpitations and fatigue. She had COVID-19 infection in July 2021 Since then she has been experiencing some palpitations. She is saying she had palpitations for and saw late Dr De. she does not remember any cause was found. She is saying she has been getting palpitations x 1 week. She has had 3 episodes. No CP. 05/15/25: She is here for f/u. She had cholecystectomy couple of months ago. She has recovered but she has been feeling weak and tired. She does not exercise. [facility] Medical History Dementia PAF (paroxysmal atrial fibrillation) Annual physical exam Diabetes mellitus GERD (gastroesophageal reflux disease) Generalized anxiety disorder Essential (primary) hypertension Surgical History Status post laparoscopic cholecystectomy Hx laparoscopic cholecystectomy (03/01/25) History of mandibular surgery History of dental surgery History of appendectomy History of cataract surgery Family History Mother No problems noted. Father Heart disease Brother Heart disease Heart valve replaced Social History Household Members: Family Household Members Other:: DAUGHTER Housing: House Do you presently have visiting nurse or other home services: No Alcohol intake: never Patient Tobacco Use Status: Never used Tobacco e-Cigarette/Vaping Use: Never Used Second Hand Smoke Exposure: No Advance Directives Date on File: 02/27/25 service: No Current occupational status: disabled Cognitive needs: Yes (walker) Hearing needs: No Vision needs: Yes (glasses) Review of Systems Const Denies chills, Denies fatigue, Denies fever(s), Denies frequent falls, Denies weakness, Denies weight gain and Denies weight loss ENT Denies dizziness Card Reports chest pain, Denies leg edema, Denies lightheadedness, Denies palpitations, Denies dyspnea and Denies dyspnea on exertion Resp Denies cough, Denies dyspnea and Denies dyspnea on exertion GI Denies hematochezia Musc Denies abnormal gait, Denies muscle weakness, Denies numbness, Denies radiating pain into limb and Denies tingling Neuro Denies abnormal gait, Denies dizziness, Denies frequent falls, Denies numbness, Denies tingling and Denies weakness Endo Denies fatigue and Denies palpitations Physical Exam Vital Signs: Last Vital Signs Pulse 53 05/15/25 15:29 BP 150/72 H 05/15/25 15:29 GENERAL APPEARANCE: in no acute distress, pleasant. NECK: no carotid bruit, no jugular venous distention. SKIN: no suspicious lesions, warm and dry. HEART: no murmurs, regular rate and rhythm. LUNGS: clear to auscultation bilaterally. ABDOMEN: soft, nontender. EXTREMITIES: no edema. PERIPHERAL PULSES: equal. NEUROLOGIC: No gross deficits, AAO X 3 Office Procedures EKG Details: Sinus bradycardia, left axis deviation, septal infarct, nonspecific ST changes, QTC 424 milliseconds [id number], Complete Assessment & Plan Assessment & Plan (1) Palpitations: Code(s): R00.2 - Palpitations Category: Medical Plan 79 female here for f/u. She has h/o palpitations with no cause found in the past. Previous Holter monitor has not shown any significant arrhythmia. She is complaining of fatigue and tiredness since cholecystectomy. I have advised her to start exercising regularly. She has exercise equipment at home. f/u in few months. Coding Level of Care Code Est Pt Level 3 (03572) Diagnoses Palpitations R00.2 CPT Codes EKG - CPT: 25745-[id number], Complete ([id number])
== END 2025-05-15 15:56 | disposition home or self-care (01) ==
LOC: HO.HCS 15:23
PROVIDERS: PCP Internal Medicine; Visit Provider Internal Medicine Cardiovascular Disease
DX: R00.2 Palpitations (principal)
CPT/HCPCS: 99213

== ENCOUNTER → 2025-05-15 15:22 | Outpatient (BNVA) | payer MEDICARE, SELFPAY | PROVIDERS: PCP Internal Medicine; Visit Provider Internal Medicine Cardiovascular Disease | DX: R00.2 Palpitations (principal); R53.83 Other fatigue | CPT/HCPCS: 93005; 99212 ==